=== PATIENT | male | born 1960 | race Caucasian/White ===

== ENCOUNTER 2018-02-03 17:02 | Emergency (ER) | payer BC, SELFPAY ==
[2018-02-03] MEDS ORDERED: LIDOCAINE 1% MPF 5 ML VIAL ONE (18:10)
[2018-02-03] MEDS ORDERED: TETANUS & DIPHTHERIA TOX,ADULT 0.5 ML VIAL ONE (18:10)
--- NOTE | 2018-02-03 18:47 | EDPHYS ---
Physician Documentation [facility] Name: Gray Mehta Age: 57 yrs Sex: Male : 1960 Arrival Date: 02/03/2018 Time: 17:03 Bed 27 Private MD: Serge Gayle ED Physician Israel Charles HPI: 02/03 18:06 This 57 yrs old Male presents to ER via Ambulatory with complaints of kb Laceration - Finger. 18:06 The patient has a laceration related to: changing lightbulb occurred at home, and there kb are no complicating factors. The injury was accidental. The laceration(s) is(are) located on the palmar aspect of middle phalanx of right index finger. Onset: The symptoms/episode began/occurred just prior to arrival. Associated signs and symptoms: The patient has no apparent associated signs or symptoms. The patient has not experienced similar symptoms in the past. The patient has not recently seen a physician. Historical: - Allergies: 17:18 Darvocet-N 100; la1 17:18 Iodine; la1 17:18 Tape; la1 17:18 Vicodin; la1 - Home Meds: 19:15 amlodipine 5 mg tab 1 tab once daily [Active]; aspirin 325 mg Oral TbEC 1 tab once mg2 daily [Active]; Centrum Silver Oral daily [Active]; clopidogrel 75 mg Oral tab 1 tab once daily [Active]; fenofibrate 134 mg Oral 1 tab once daily [Active]; Fish Oil Oral [Active]; losartan-hydrochlorothiazide 100-12.5 mg Oral tab 1 tab once daily [Active]; metoprolol tartrate 50 mg Oral tab [Active]; simvastatin 80 mg Oral tab daily [Active]; - PMHx: 17:18 High Cholesterol; Hypertension; Myocardial infarction; la1 - PSHx: 19:15 None; mg2 - Immunization history:: Adult Immunizations up to date. - Social history:: Smoking status: Patient uses tobacco products, smokes one-half pack cigarettes per day. - Ebola Screening: : No symptoms or risks identified at this time. ROS: 18:44 Constitutional: Negative for fever, chills, and weight loss, ENT: Negative for injury, kb pain, and discharge, Neck: Negative for injury, pain, and swelling, Cardiovascular: Negative for chest pain, palpitations, and edema, Respiratory: Negative for shortness of breath, cough, wheezing, and pleuritic chest pain, Abdomen/GI: Negative for abdominal pain, nausea, vomiting, diarrhea, and constipation, MS/Extremity: Negative for injury and deformity, Neuro: Negative for headache, weakness, numbness, tingling, and seizure. 18:44 Skin: Positive for laceration(s), of the palmar aspect of middle phalanx of right index finger. Exam: 18:44 Constitutional: This is a well developed, well nourished patient who is awake, alert, kb and in no acute distress. Head/Face: Normocephalic, atraumatic. ENT: Nares patent. No nasal discharge, no septal abnormalities noted. Tympanic membranes are normal and external auditory canals are clear. Oropharynx with no redness, swelling, or masses, exudates, or evidence of obstruction, uvula midline. Mucous membranes moist. Neck: Trachea midline, no thyromegaly or masses palpated, and no cervical lymphadenopathy. Supple, full range of motion without nuchal rigidity, or vertebral point tenderness. No Meningismus. Chest/axilla: Normal chest wall appearance and motion. Nontender with no deformity. No lesions are appreciated. Cardiovascular: Regular rate and rhythm with a normal S1 and S2. No gallops, murmurs, or rubs. Normal PMI, no JVD. No pulse deficits. Respiratory: Lungs have equal breath sounds bilaterally, clear to auscultation and percussion. No rales, rhonchi or wheezes noted. No increased work of breathing, no retractions or nasal flaring. Abdomen/GI: Soft, non-tender, with normal bowel sounds. No distension or tympany. No guarding or rebound. No evidence of tenderness throughout. MS/ Extremity: Pulses equal, no cyanosis. Neurovascular intact. Full, normal range of motion. Neuro: Awake and alert, GCS 15, oriented to person, place, time, and situation. Cranial nerves II-XII grossly intact. Motor strength 5/5 in all extremities. Sensory grossly intact. Cerebellar exam normal. Normal gait. 18:44 Skin: injury, laceration(s), the wound is approximately 2 cm(s), of the palmar aspect of middle phalanx of right index finger, that can be described as clean, no foreign body, linear, without bleeding. Vital Signs: 17:19 Pulse 68; Resp 16; Temp 97.5; Pulse Ox 98% on R/A; Weight 79.38 kg; Height 5 ft. 6 in. la1 (167.64 cm); 17:19 BP 130 / 70; la1 17:19 Body Mass Index 28.25 (79.38 kg, 167.64 cm) la1 Procedures: 18:14 Nerve block: (digital) of palmar aspect of proxima; phalanx of right index finger kb Medication: Lidocaine 1% without epinephrine Marcaine 0.5%, Amount: 5 mls were injected, Effect: the patient has resolution of the pain, Set up for procedure. Performed by Salma ACHARYA Patient tolerated well. Laceration: 18:45 Wound Repair of 2cm ( 0.8in ) subcutaneous laceration to palmar aspect of middle kb phalanx of right index finger. Linear shaped.. Distal neuro/vascular/tendon intact. Anesthesia: Digital block administered with 5 mls of Lido/Marcaine. Wound prep: Extensive cleansing with hibiclenz by me, Wound irrigation with saline by me. Skin closed with 3 4-0 Prolene using interrupted sutures and sterile technique. Dressed with Neosporin, tube gauze. Patient tolerated well. MDM: 17:23 Patient medically screened. kb 18:14 Data reviewed: vital signs, nurses notes. Data interpreted: Pulse oximetry: on room air kb is 98 %. Interpretation: normal. 18:45 Counseling: I had a detailed discussion with the patient and/or guardian regarding: the kb historical points, exam findings, and any diagnostic results supporting the discharge/admit diagnosis, the need for outpatient follow up, a family practitioner, to return to the emergency department if symptoms worsen or persist or if there are any questions or concerns that arise at home. 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 Exp: mg2 03/23/2020. Lot #: [id number]. } Route: IM; Site: left deltoid; 18:24 Follow up: Response: No adverse reaction mg2 19:07 Drug: Bupivacaine (0.5 %) 1 vials Volume: 10 ml; Route: Infiltration; mg2 19:07 Follow up: Response: No adverse reaction; Marked relief of symptoms mg2 19:07 Drug: Lidocaine (1 %) 1 vials Volume: 5 ml; Route: Infiltration; mg2 19:07 Follow up: Response: No adverse reaction; Marked relief of symptoms mg2 Disposition: 02/04 07:35 Co-signature as Attending Physician, Israel Charles MD I agree with the assessment and jessie plan of care. Disposition: 02/03/18 18:46 Discharged to Home. Impression: Laceration without foreign body of right index finger without damage to nail. - Condition is Stable. - Discharge Instructions: Laceration Care, Adult, [id number]. - Work release form, Medication Reconciliation Form, Thank You Letter, Antibiotic Education, Prescription Opioid Use form. - Follow up: Emergency Department; When: As needed; Reason: Worsening of condition. Follow up: Private Physician; When: 2 - 3 days; Reason: Recheck today's complaints, Continuance of care, Re-evaluation by your physician. - Notes: Keep clean and dry Watch for signs of infection as discussed Have sutures removed in 10 days Signatures: Salma Watson, TAILOR HELPER-C TAILOR HELPER-Ckb Israel Charles MD MD cha Attema, Lee, RN RN la1 Solo Lopez RN RN mg2 Corrections: (The following items were deleted from the chart) 02/03 18:45 18:06 The laceration(s) is(are) located on the palmar aspect of middle phalanx of right kb little finger, kb 19:16 18:46 02/03/2018 18:46 Discharged to Home. Impression: Laceration without foreign body mg2 of right index finger without damage to nail. Condition is Stable. Forms are Medication Reconciliation Form, Thank You Letter, Antibiotic Education, Prescription Opioid Use. Follow up: Emergency Department; When: As needed; Reason: Worsening of condition. Follow up: Private Physician; When: 2 - 3 days; Reason: Recheck today's complaints, Continuance of care, Re-evaluation by your physician. kb
--- NOTE | 2018-02-03 18:47 | ER ---
Nurse's Notes [facility] Name: Gray Mehta Age: 57 yrs Sex: Male : 1960 Arrival Date: 02/03/2018 Time: 17:03 Bed 27 Private MD: Serge Gayle Diagnosis: Laceration without foreign body of right index finger without damage to nail Presentation: 02/03 17:17 Presenting complaint: Patient states: I was changing a light bulb and it busted up my la1 right index finger. Transition of care: patient was not received from another setting of care. Complicating Factors: There are no complicating factors for this patient. Onset of symptoms was February 03, 2018. Risk Assessment: Do you want to hurt yourself or someone else? Patient reports no desire to harm self or others. Initial Sepsis Screen: Does the patient meet any 2 criteria? No. Patient's initial sepsis screen is negative. Does the patient have a suspected source of infection? No. Patient's initial sepsis screen is negative. Care prior to arrival: None. 17:17 Method Of Arrival: Ambulatory la1 17:17 Acuity: CAIO 4 la1 Historical: - Allergies: 17:18 Darvocet-N 100; la1 17:18 Iodine; la1 17:18 Tape; la1 17:18 Vicodin; la1 - Home Meds: 19:15 amlodipine 5 mg tab 1 tab once daily [Active]; aspirin 325 mg Oral TbEC 1 tab once mg2 daily [Active]; Centrum Silver Oral daily [Active]; clopidogrel 75 mg Oral tab 1 tab once daily [Active]; fenofibrate 134 mg Oral 1 tab once daily [Active]; Fish Oil Oral [Active]; losartan-hydrochlorothiazide 100-12.5 mg Oral tab 1 tab once daily [Active]; metoprolol tartrate 50 mg Oral tab [Active]; simvastatin 80 mg Oral tab daily [Active]; - PMHx: 17:18 High Cholesterol; Hypertension; Myocardial infarction; la1 - PSHx: 19:15 None; mg2 - Immunization history:: Adult Immunizations up to date. - Social history:: Smoking status: Patient uses tobacco products, smokes one-half pack cigarettes per day. - Ebola Screening: : No symptoms or risks identified at this time. Screenin:09 Abuse screen: Denies threats or abuse. Denies injuries from another. Nutritional mg2 screening: No deficits noted. Tuberculosis screening: No symptoms or risk factors identified. Fall Risk None identified. Assessment: 19:07 General: Appears in no apparent distress. comfortable, Behavior is calm, cooperative. mg2 Pain: Complains of pain in palmar aspect of middle phalanx of right index finger. Neuro: Level of Consciousness is awake, alert, obeys commands, Oriented to person, place, time, situation. Cardiovascular: Capillary refill < 3 seconds Patient's skin is warm and dry. Respiratory: Airway is patent Respiratory effort is even, unlabored, Respiratory pattern is regular, symmetrical. GI: No signs and/or symptoms were reported involving the gastrointestinal system. : No signs and/or symptoms were reported regarding the genitourinary system. EENT: No signs and/or symptoms were reported regarding the EENT system. Derm: Skin is intact, is healthy with good turgor, Skin is pink, warm \T\ dry. normal. Musculoskeletal: Circulation, motion, and sensation intact. Capillary refill < 3 seconds. Injury Description: Laceration sustained to palmar aspect of middle phalanx of right index finger is clean, 0.5 to 2.5 cm long, not bleeding, was sustained 2-4 hours ago. Vital Signs: 17:19 Pulse 68; Resp 16; Temp 97.5; Pulse Ox 98% on R/A; Weight 79.38 kg; Height 5 ft. 6 in. la1 (167.64 cm); 17:19 BP 130 / 70; la1 17:19 Body Mass Index 28.25 (79.38 kg, 167.64 cm) la1 ED Course: 17:03 Patient arrived in ED. as 17:03 Serge Gayle MD is Private Physician. as 17:17 Triage completed. la1 17:18 Arm band placed on right wrist. la1 17:23 Salma Watson FNP-C is [facility]. kb 17:23 Israel Charles MD is Attending Physician. kb 17:39 Solo Lopez RN is Primary Nurse. mg2 19:10 Assist provider with laceration repair on palmar aspect of middle phalanx of right mg2 index finger that was 2.5 cm. or less using sutures. Set up tray. Performed by Salma Walter BUNDLE SORTER-C Dressed with 2x2 Patient tolerated well. Patient did not have IV access during this emergency room visit. 19:15 Patient has correct armband on for positive identification. mg2 Administered Medications: 18:05 Drug: Tetanus-Diphtheria Toxoid Adult 0.5 ml {Copy Holder: [employer]. Exp: mg2 03/23/2020. Lot #: [id number]. } Route: IM; Site: left deltoid; 18:24 Follow up: Response: No adverse reaction mg2 19:07 Drug: Bupivacaine (0.5 %) 1 vials Volume: 10 ml; Route: Infiltration; mg2 19:07 Follow up: Response: No adverse reaction; Marked relief of symptoms mg2 19:07 Drug: Lidocaine (1 %) 1 vials Volume: 5 ml; Route: Infiltration; mg2 19:07 Follow up: Response: No adverse reaction; Marked relief of symptoms mg2 Outcome: 18:46 Discharge ordered by . kb 19:12 Discharged to home ambulatory, with family. mg2 19:12 Condition: stable 19:12 Discharge instructions given to patient, family, Instructed on discharge instructions, follow up and referral plans. Demonstrated understanding of instructions, follow-up care. 19:16 Patient left the ED. mg2 Signatures: Salma Watson, BUNDLE SORTER-C BUNDLE SORTER-Layne Oreilly Lee RN RN la1 Solo Lopez RN RN mg2
== END 2018-02-03 19:16 | disposition home or self-care (01) ==
LOC: ER 17:02
PROC: 0JQJ0ZZ Repair Right Hand Subcutaneous Tissue and Fascia, Open Approach (ICD-10-PCS; principal; 2018-02-03)
DX: S61.210A Laceration without foreign body of right index finger without damage to nail, initial encounter (principal); W25.XXXA Contact with sharp glass, initial encounter; Z23 Encounter for immunization; F17.210 Nicotine dependence, cigarettes, uncomplicated; E78.00 Pure hypercholesterolemia, unspecified; I10 Essential (primary) hypertension; I25.2 Old myocardial infarction; Z79.899 Other long term (current) drug therapy
CPT/HCPCS: 64450; 90714; 99283

== ENCOUNTER 2019-08-11 09:29 | Day surgery (SDC) | payer BC ==
[2019-08-08 16:20] LABS: Protime INR 0.93
[2019-08-08 16:23] LABS: Absolute Lymphocytes (CBC) 1.7 K/uL (0.7-4.9); Basophils % 0.7 % (0-1.3); Hematocrit 40.7 % (39.6-49.0); Lymphocytes % 21.4 % (15.3-44.8); MPV 8.6 fL (7.6-11.3); RBC Red Blood Cell Count 4.32 M/uL (4.33-5.43)
--- NOTE | 2019-08-08 16:30 | RAD REPORT ---
EXAM DESCRIPTION: Tam Bermudez And Karthik (2 Views)08/08/2019 4:22 pm CLINICAL HISTORY: Coronary artery disease. Preop for cardiac catheterization COMPARISON: None FINDINGS: The lungs appear clear of acute infiltrate. The heart is normal size IMPRESSION: No acute abnormalities displayed
[2019-08-08 16:32] LABS: Potassium 4.2 mmol/L (3.5-5.1)
[~2019-08-11 09:29] MED LIST: HEPA 1000U/500MLS 2,000 UNIT/1,000 ML BAG IV ONE; LIDOCAINE 1% MPF 30 ML VIAL ONE
[2019-08-11] MEDS ORDERED: NA CHLORIDE 0.9% 500 ML ONE (10:10)
[2019-08-11] MEDS ORDERED: HEPARIN 5000 UNIT/ML 1 ML VIAL ONE ×2 (11:27→11:29)
[2019-08-11] MEDS ORDERED: NICARDIPINE HCL 25 MG/10 ML IV ONE (11:28)
[2019-08-11] MEDS ORDERED: MIDAZOLAM HCL 2 MG/2 ML INJ ONE ×2 (11:28→11:50)
[2019-08-11] MEDS ORDERED: ATROPINE SULF 1 MG/10 ML SYR IV ONE (11:28)
[2019-08-11] MEDS ORDERED: FENTANYL CITR 100 MCG/2 ML ONE (11:28)
[2019-08-11] MEDS ORDERED: ACETYLCYST 20% 4 ML VIAL IH ONE (11:42)
[2019-08-11] MEDS ORDERED: DIPHENHYDRAMINE 50 MG/ML VIAL ONE (11:47)
[2019-08-11 13:35] VITALS: O2SAT 94
[2019-08-11 14:53] VITALS: BP 110/67; TEMP 97.2
--- NOTE | 2019-08-11 22:20 | OP ---
Date of Procedure: 08/11/2019 Surgeon: ANTHONY HERNANDEZ Salesperson Floor Coverings: Anthony Hernandez. Procedure Performed: Selective coronary angiogram. Indication: Unstable angina. Aluminum Boats Assembler: Pio Walls M.D. Access: Right radial artery 6-Hong Konger closed with TR band. Description Of Procedure: Patient was brought into the cardiac catheterization laboratory, prepped a nd draped in usual sterile fashion and used fentanyl and Versed in incremental doses to achieve adequ ate moderate sedation. Total sedation time was 20 minutes. The right radial artery was accessed using the pediatric micropuncture kit, a 6-H[place] Konger sheath was stephanie kim and we took a [place] catheter into the aortic root and engaged the left main coronary artery and t he right coronary artery and obtained standard views and then removed all catheters and wires and the sheath and closed the entry point using a TR band. Total sedation time was 20 minutes. Findings: 1.There is approximately 40% in-stent restenosis of dicszeay-oj-jpn RCA stent over with ROSIE-3 flow and there is about 40% stenosis in the distal RCA. 2.A 30% to 40% stenosis in the third OM and 30% stenosis in the ostial second OM. 3.Diffuse mild luminal irregularities of the LAD. Impression: Moderate in severity coronary artery disease as outlined above. Recommendations: 1.If patient has classic symptoms, I will recommend to obtain a nuclear stress test to further evalu ate. Ideally, iFR/FFR could be done at this scenario; however, unfortunately the iFR/FFR is not avai lable in this medical laboratory scientist. Discussed with Dr. Walls and the plan for outpatient stress test and inter vention only if stress test is positive. 2.Aggressive medical management of coronary artery disease. SR/MODL Voice ID: [id number] Report ID: [id number]
== END 2019-08-11 14:50 | disposition home health service (06) ==
LOC: CCL 09:29
DX: I25.110 Atherosclerotic heart disease of native coronary artery with unstable angina pectoris (principal); T82.855A Stenosis of coronary artery stent, initial encounter; I10 Essential (primary) hypertension; E78.2 Mixed hyperlipidemia; Z98.61 Coronary angioplasty status; Z88.6 Allergy status to analgesic agent
CPT/HCPCS: 85025; 80048; 36415; 85610; 85730; 71046; 93454; C1893; J1200; J1644; J2250 ×2; J3010; J7040

== ENCOUNTER 2021-01-20 14:48 | Emergency (ER) | payer BC ==
--- OUTSIDE RECORDS SUMMARY | 2021-01-20 14:51 | XMS REPORT | Continuity of Care Document ---
:1960 Author Organization [facility] t Address [address] [place] [address] Care Team Providers Name Role Phone Indira LANZA, A Primary Care Physician Indira LANZA, A Attending Clinician ALBERTO Attending Clinician Unavailable Colin LIU Attending Clinician Unavailable MERT TAI Attending Clinician Unavailable Marek PRICE Attending Clinician Unavailable Payers Payer Name Policy Type Policy Number Effective Date Expiration Date S ource Problems Condition Condition Condition Status Onset Resolution Last Treating Co mments Source Name Details Category Date Date Treatment Clinician Date Prediabete Prediabete Disease Active U nivers s s 5-12 ity of 00:00: 00 Medical Branch Coronary Coronary Disease Active Unive rs artery artery 07-06 ity of disease disease 00:00: Medical Branch S/P S/P Disease Active Overview: Univer s coronary coronary 07-06 Formattin ity of artery artery 00:00: g of this [place] stent stent 00 note Medical placement placement might be Br anch different from the original. At least 7 stents per the patient Essential Essential Disease Active Uni vers hypertensi hypertensi 5-04 it y of on on 00:00: 00 Medical Branch Mixed Mixed Disease Active Univers hyperlipid hyperlipid - it y of emia emia 00:00: 00 Medical Branch GERD GERD Disease Active Univers (gastroeso (gastroeso 07-06 it y of phageal phageal 00:00: [place] reflux reflux 00 Medical disease) disease) Branch History of History of Disease Active U nivers blood blood 5-04 ity of transfus[place]io [place] Allergies, Adverse Reactions, Alerts Allergy Allergy Status Severity Reaction(s) Onset Inactive Treating Comm ents Source Name Type Date Date Clinician ADHESIVE DRUG Active Rash Univers TAPE-TAMARA 5-04 ity of ICONES 00:00: [place] 00 Medical Branch IODINE Drug Active ITCHING Univers AND Class 5-04 ity of IODIDE 00:00: [place] CONTAINI 00 Medical NG Branch PRODUCTS PROPOXYP DRUG Active N/V Univers HENE 5-04 ity of N-ACETAM 00:00: [place] INOPHEN 00 Medical Branch HYDROCOD DRUG Active N/V Univers ONE-ACET 5-04 ity of AMINOPHE 00:00: [place] N 00 Medical Branch Adhesive Propensi Active Rash Univer s Tape-Tamara ty to 5-04 ity of icones adverse 00:00: [place] reaction 00 Medical s Branch Iodine Propensi Active Itching Univers And ty to 5-04 ity of Iodide adverse 00:00: [place] Containi reaction 00 Medica l ng s Branch Products Propoxyp Propensi Active Nausea 0 Univer s hene ty to and/or 5-04 ity of N-Acetam adverse Vomiting 00:00: [place] inophen reaction 00 Medical s Branch Hydrocod Propensi Active Nausea Univer s one-Acet ty to and/or 5-04 ity of aminophe adverse Vomiting 00:00: [place] n reaction 00 Medical s Branch NO KNOWN Drug Active Univers ALLERGIE Class ity of S [place] [facility] Social History Social Habit Start Date Stop Date Quantity Comments Source History [facility] o f Alcohol Frequency [facility] edical Branch History [facility] University o f Alcohol Std Drinks [place] [facility] History [facility] o f Alcohol Binge [place] Medic al Branch Alcohol intake 2020-07-14 2020-07-14 Current drinker Unive rsity of 00:00:00 00:00:00 of alcohol [place] [facility] (finding) Branch Cigarettes smoked 2020-07-06 2020-07-06 Univers ity of current (pack per 00:00:00 00:00:00 [facility] ed) - Reported Branch Tobacco use and 2020-07-06 2020-07-06 Never used Universit y of exposure 00:00:00 00:00:00 [facility] Alcohol Comment 2020-07-06 2020-07-06 3 x a week Universit y of 00:00:00 00:00:00 [facility] Sex [birth year] At [birth year] Universit y of 00:0000 00:00:00 [facility] Smoking Status Start Date Stop Date Source Current every day smoker 2020-07-06 00:00:00 Uni versity of [facility] Medications Ordered Filled Start Stop Current Ordering Indication Dosage Frequency Signature Comments Components Source Medication Medication Date Date Medication? Clinician (SIG) Name Name Morton-3-DHA Yes Take by Un rob -EPA-Fish 5-04 mouth ity of Oil (FISH 14:58: daily. [place] OIL) 1,200 42 Medical (144-216) Branch mg Cap folic Yes Take by Univers acid/multiv 5-04 mouth ity of it-min/lute 14:58: [place]. [place] in (CENTRUM 42 Medical SILVER Branch ORAL) aspirin Yes 325mg Take 325 Unive rs E.C. 325 mg 5-04 mg by ity of EC tablet 14:58: mouth [place] 42 daily. Medical Branch clobetasoL Yes [id number] Apply to Univers 0.05 % 5-04 area(s) 2 ity of ointment 00:00: (two) [place] times Medical daily. Branch simvastatin Yes 80mg Take 80 mg Univers 80 mg 4-26 by mouth ity of tablet 00:00: daily. [place] [facility] omeprazole Yes 20mg Take 20 mg U nivers 20 mg 4-25 by mouth ity of capsule 00:00: daily. [place] [facility] fenofibrate Yes TAKE 1 Univ ers micronized 4-06 CAPSULE BY ity of 134 mg 00:00: MOUTH [place] capsule 00 EVERY DAY Medical WITH FOOD Branch metoprolol Yes 50mg Take 50 mg U nivers tartrate 50 3-15 by mouth 2 it y of mg tablet 00:00: (two) [place] 00 times Medical daily with Branch meals. amLODIPine Yes 5mg Take 5 mg Un rob 5 mg tablet 3-08 by mouth ity of 00:00: daily. [address] clopidogreL 2020- Yes 75mg Take 75 mg Univers 75 mg 2-05 by mouth ity of tablet 00:00: daily. [address] Immunizations Ordered Filled Immunization Date Status Comments [facility] e Immunization Name Name SARS-COV-2 COVID-19 2020-07-03 Completed Unive rsity of PFIZER VACCINE 00:00:00 [facility] [place] [facility] SARS-COV-2 COVID-19 2020-06-12 Completed Unive rsity of PFIZER VACCINE 00:00:00 [facility] [place] [facility] Zoster Vaccine 2020-01-04 Completed University of Recombinant 00:00:00 [facility] Influenza Virus 2019-12-04 Completed Universit y of Vaccine 00:00:00 [facility] Zoster Vaccine 2019-12-04 Completed University of Recombinant 00:00:00 [facility] TDAP 2018-03-05 Completed University of 00:00:00 [facility] Procedures This patient has no known procedures. Encounters Start End Encounter Admission Attending Care Care Encounter Source Date/Time Date/Time Type Type Clinicians Facility Department ID 2021-01-20 2021-01-20 Telephone Indira WYHUNTER [id number] [facility] 00:00:00 00:00:00 [employer] [id number] ity of [place] [id number] John as HERRERA?BLEA [id number] [place] desirae [facility] [address] [place] [address] MEDICAL OFFICE BUILDING 2020-08-05 2020-08-05 Outpatient Yonny DOMINGUEZ [facility] [id number] Univers 08:15:00 08:15:00 CASSIE [id number] ity [facility] 2020-08-05 2020-08-05 Outpatient Yonny DOMINGUEZ [facility] [id number] Univers 08:15:00 08:15:00 CASSIE itfa[facility]em [facility] 2020-07-08 2020-07-08 Outpatient Yonny [facility] [id number] Univers 08:00:00 08:00:00 [id number] ity [facility] 2020-07-08 2020-07-08 Outpatient Yonny LIU [facility] [id number] Univers 08:00:00 08:00:00 WONDIFUL ity o f [facility] 2020-07-06 2020-07-06 Outpatient Yonny LIU [facility] [id number] Univers 14:30:00 14:30:00 WONDIFUL ity o f [facility] 2020-07-03 2020-07-03 Outpatient Yonny TAI [facility] [id number] Univers 10:35:00 10:19:26 CECY [facility] 2020-06-12 2020-06-12 Outpatient Yonny PRICE [facility] [id number] Univers 10:55:00 10:56:43 JAHAIRA [facility] Results This patient has no known results.
[2021-01-20 16:26] LABS: ALT/SGPT 47 U/L (12-78); AST/SGOT 30 U/L (15-37); Albumin 3.5 g/dL (3.4-5.0); Alkaline Phosphatase 62 U/L (45-117); BUN Blood Urea Nitrogen 18 mg/dL (7-18); Bicarbonate 26 mmol/L (21-32); Bilirubin Direct < 0.1 mg/dL (0-0.2); Bilirubin Total 0.3 mg/dL (0.2-1.0); Glucose Level 103 mg/dL (74-106); Magnesium 2.1 mg/dL (1.8-2.4); NT PRO-BNP 76 pg/mL (<125); Potassium 3.5 mmol/L (3.5-5.1); Protein, Total 6.9 g/dL (6.4-8.2); Sodium Level 144 mmol/L (136-145); Troponin (Emerg Dept Use Only) < 0.02 ng/mL (0.0-0.045)
[2021-01-20 16:28] LABS: Absolute Lymphocytes (CBC) 1.8 K/uL (0.7-4.9); Basophils % 0.7 % (0-1.3); Hematocrit 43.6 % (39.6-49.0); Lymphocytes % 21.2 % (15.3-44.8); MPV 8.4 fL (7.6-11.3); RBC Red Blood Cell Count 4.59 M/uL (4.33-5.43)
[2021-01-20 16:32] LABS: Protime INR 0.94
--- NOTE | 2021-01-20 18:37 | RAD REPORT ---
EXAM DESCRIPTION: CTAbdomen Pelvis Wo Contrast - 01/20/2021 6:26 pm CLINICAL HISTORY: ABD PAIN COMPARISON: Abdomen Pelvis Wo Contrast dated 08/20/2015 TECHNIQUE: CT of the abdomen and pelvis was performed. All CT scans are performed using dose optimization technique as appropriate and may include automated exposure control or mA/KV adjustment according to patient size. FINDINGS: Lower chest: Coronary artery calcifications and/or stents Liver: No acute abnormality or suspicious lesions. Biliary: No biliary ductal dilatation. Stomach: No significant focal abnormality. Duodenum: No significant focal abnormality. Pancreas: No significant abnormality. Spleen: No significant abnormality. Adrenal: Bilateral benign adrenal nodules which are unchanged since 2016. Kidney/ureter: No hydronephrosis. No renal calculi. Right renal lesion has increased in size now marleni uring 2.6 cm, previously 2 cm. This is over 5 years of minimal change which is consistent with benign etiology. Retroperitoneum: No retroperitoneal adenopathy. Vascular: No aneurysm. Atherosclerosis . Bowel: No significant focal abnormality. Peritoneum: No ascites or free air. Ventral abdominal wall laxity. Small fat umbilical hernia Bladder: Circumferential bladder wall thickening which is nonspecific. May be related to chronic blad samir outlet obstruction. Reproductive: No adnexal masses. Bones: No acute fracture. Multilevel degenerative changes are present in the spine. Other: n/a IMPRESSION: No acute intra-abdominal or pelvic finding.
--- NOTE | 2021-01-20 19:10 | EDPHYS ---
Physician Documentation [facility] Name: Gray Mehta Age: 60 yrs Sex: Male : 1960 Arrival Date: 01/20/2021 Time: 14:51 Bed 14 Private MD: ANNALISA LIU ED Physician Guido Douglas HPI: 01/20 15:50 This 60 yrs old Male presents to ER via Ambulatory with complaints of Bloody Stools. cp 15:50 The patient presents to the emergency department with rectal bleeding, a moderate cp amount, bright red blood with bowel movement, with multiple such episodes, 1 episode today. 15:50 Onset: The symptoms/episode began/occurred 5 month(s) ago. Abdominal pain: located in cp the left lower, that does not radiate. Associated signs and symptoms: Pertinent negatives: chest pain, constipation, diarrhea, dizziness at rest, dizziness when standing, fever, shortness of breath. Severity of symptoms: in the emergency department the symptoms are unchanged despite home interventions. The patient has experienced a previous episode, when diagnosed with h. pylori gastric ulcers. Historical: - Allergies: 15:09 Darvocet-N 100; ss 15:09 Iodine; ss 15:09 Tape; ss 15:09 Vicodin; ss - Home Meds: 15:09 clopidogrel 75 mg Oral tab 1 tab once daily [Active]; amlodipine 5 mg tab 1 tab once ss daily [Active]; aspirin 325 mg Oral TbEC 1 tab once daily [Active]; Centrum Silver Oral daily [Active]; fenofibrate 134 mg Oral 1 tab once daily [Active]; simvastatin 80 mg Oral tab daily [Active]; metoprolol tartrate 50 mg Oral tab [Active]; - PMHx: 15:09 High Cholesterol; Hypertension; Myocardial infarction; Peptic Ulcers; ss - PSHx: 15:09 Cardiac stents x 7; ss - Immunization history:: Client reports receiving the 2nd dose of the Covid vaccine, Flu vaccine is up to date. - Social history:: Smoking status: Patient reports the use of cigarette tobacco products, smokes one-half pack cigarettes per day. ROS: 15:55 Constitutional: Negative for body aches, chills, fever, poor PO intake. cp 15:55 Cardiovascular: Positive for chest pain. cp 15:55 Respiratory: Negative for cough, shortness of breath, wheezing. 15:55 Eyes: Negative for injury, pain, redness, and discharge. cp 15:55 Abdomen/GI: Positive for abdominal pain, rectal bleeding, Negative for vomiting, diarrhea, constipation. 15:55 ENT: Negative for ear pain, sore throat, difficulty swallowing, difficulty handling cp secretions. 15:55 Back: Negative for radiated pain. 15:55 Neuro: Negative for altered mental status, dizziness, headache, syncope, weakness. 15:55 All other systems are negative. Exam: 16:00 Constitutional: The patient appears in no acute distress, alert, awake, cp non-diaphoretic, non-toxic, well developed, well nourished. 16:00 Head/Face: Normocephalic, atraumatic. cp 16:00 Eyes: Periorbital structures: appear normal, Conjunctiva: normal, no exudate, no injection, Sclera: no appreciated abnormality, Lids and lashes: appear normal, bilaterally. 16:00 ENT: External ear(s): are unremarkable, Nose: is normal, Mouth: Lips: moist, Oral mucosa: moist, Posterior pharynx: Airway: no evidence of obstruction, patent. 16:00 Chest/axilla: Inspection: normal, Palpation: is normal, no crepitus, no tenderness. 16:00 Cardiovascular: Rate: normal, Rhythm: regular, Edema: is not appreciated, JVD: is not appreciated. 16:00 Respiratory: the patient does not display signs of respiratory distress, Respirations: normal, no use of accessory muscles, no retractions, labored breathing, is not present, Breath sounds: are clear throughout, no decreased breath sounds, no stridor, no wheezing. 16:00 Abdomen/GI: Inspection: abdomen appears normal, Bowel sounds: active, all quadrants, Palpation: soft, in all quadrants, mild abdominal tenderness, in the left lower quadrant, rebound tenderness, is not appreciated, involuntary guarding, is not appreciated. 16:00 Back: pain, is absent, ROM is normal. 16:00 Neuro: Orientation: to person, place \T\ time. Mentation: is normal, Motor: moves all fours, strength is normal, Sensation: is normal. 16:08 ECG was reviewed by the Attending Physician. Vital Signs: 15:07 BP 161 / 91; Pulse 77; Resp 16; Temp 98.8(TE); Pulse Ox 99% on R/A; Weight 79.83 kg; ss Height 5 ft. 6 in. (167.64 cm); Pain 0/10; 16:07 BP 150 / 77; Pulse 71; Pulse Ox 100% on R/A; ap3 16:43 BP 159 / 82; Pulse 72; Resp 17; Pulse Ox 100% on R/A; ap3 17:24 BP 138 / 75; Pulse 74; Pulse Ox 100% on R/A; ap3 15:07 Body Mass Index 28.41 (79.83 kg, 167.64 cm) ss MDM: 15:24 Patient medically screened. cp 19:10 Data reviewed: vital signs, nurses notes, lab test result(s), EKG, radiologic studies, cp CT scan, and as a result, I will discharge patient. 19:10 Test interpretation: by ED physician or midlevel provider: ECG. 01/20 15:46 Order name: Basic Metabolic Panel 01/20 15:46 Order name: CBC with Diff; Complete Time: 16:52 01/20 16:52 Interpretation: Normal except: MN% 13.7. 01/20 15:46 Order name: LFT's; Complete Time: 16:52 01/20 16:53 Interpretation: Normal except: A/G 1.0. 01/20 15:46 Order name: Magnesium; Complete Time: 16:52 01/20 15:46 Order name: NT PRO-BNP; Complete Time: 16:52 01/20 15:46 Order name: PT-INR; Complete Time: 16:52 01/20 15:46 Order name: Troponin (emerg Dept Use Only); Complete Time: 16:52 01/20 15:46 Order name: Ptt, Activated; Complete Time: 16:52 01/20 15:46 Order name: Type And Screen; Complete Time: 17:38 01/20 15:47 Order name: Basic Metabolic Panel; Complete Time: 16:52 EDMS 01/20 16:53 Interpretation: Normal except: CL 112; GFR 68. 01/20 15:51 Order name: Occult Blood 01/20 15:51 Order name: Ova And Parasites 01/20 15:51 Order name: Stool Culture 01/20 15:51 Order name: CDIFF 01/20 15:46 Order name: EKG; Complete Time: 15:47 01/20 15:46 Order name: Cardiac monitoring; Complete Time: 16:07 01/20 15:46 Order name: EKG - Nurse/Tech; Complete Time: 16:07 01/20 15:46 Order name: IV Saline Lock; Complete Time: 16:07 01/20 15:46 Order name: Labs collected and sent; Complete Time: 16:07 01/20 15:46 Order name: O2 Per Protocol; Complete Time: 15:55 01/20 15:46 Order name: O2 Sat Monitoring; Complete Time: 15:55 01/20 16:46 Order name: Abdomen ; Complete Time: 18:43 EDMS EC:08 Rate is 63 beats/min. Rhythm is regular. SD interval is normal. QRS interval is normal. cp QT interval is normal. Interpreted by me. Reviewed by me. Administered Medications: No medications were administered Disposition: 01/21 07:15 Co-signature as Attending Physician, Guido Douglas MD I agree with the assessment and kdr plan of care. Disposition Summary: 01/20/21 19:10 Discharge Ordered Location: Home cp Problem: new cp Symptoms: have improved cp Condition: Stable cp Diagnosis - Abdominal pain, unspecified cp Followup: cp - With: Private Physician - When: 2 - 3 days - Reason: Recheck today's complaints Discharge Instructions: - Discharge Summary Sheet cp - Abdominal Pain, Adult cp Forms: - Medication Reconciliation Form cp - Thank You Letter cp - Antibiotic Education cp - Prescription Opioid Use cp Prescriptions: - Zofran 4 mg Oral Tablet - take 1 tablet by ORAL route every 12 hours As needed; 20 tablet; Refills: 0, cp Product Selection Permitted - Cipro 500 mg Oral Tablet - take 1 tablet by ORAL route every 12 hours for 10 days; 20 tablet; Refills: 0, cp Product Selection Permitted - Metronidazole 500 mg Oral Tablet - take 1 tablet by ORAL route every 8 hours; 30 tablet; Refills: 0, Product cp Selection Permitted - dicyclomine 20 mg Oral Tablet - take 1 tablet by ORAL route 4 times per day; 20 tablet; Refills: 0, Product cp Selection Permitted Signatures: Dispatcher [facility]Kind[facility] PittsburghGuido Townsend MD MD kdr Smirch, Shelby, RN RN ss Isaias Álvarez, ASSISTANT TEACHING PROFESSOR-C ASSISTANT TEACHING PROFESSOR-Cla1 Israel Robles PA PA cp Prokisch, Amanda, RN RN ap3 Corrections: (The following items were deleted from the chart) 01/20 16:28 15:47 Abdomen Pelvis W Con+CT.RAD.BRZ ordered. EDMS EDMS 16:46 16:21 Abdomen Pelvis W Con+CT.RAD.BRZ ordered. EDMS EDMS
--- NOTE | 2021-01-20 19:10 | ER ---
Nurse's Notes [facility] Name: Gray Mehta Age: 60 yrs Sex: Male : 1960 Arrival Date: 01/20/2021 Time: 14:51 Bed 14 Private MD: ANNALISA LIU Diagnosis: Abdominal pain, unspecified Presentation: 01/20 15:07 Chief complaint: Patient states: episodes of bloody stools over the past 5 months that ss have been coming more frequent. Pt states this is not the first time this has occurred. The cause last time was reported to be "a superbug and ulcers.". Coronavirus screen: Client denies travel out of the [place] in the last 14 days. Ebola Screen: Patient denies exposure to infectious person. Patient denies travel to an Ebola-affected area in the 21 days before illness onset. Initial Sepsis Screen: Does the patient meet any 2 criteria? No. Patient's initial sepsis screen is negative. Does the patient have a suspected source of infection? No. Patient's initial sepsis screen is negative. Risk Assessment: Do you want to hurt yourself or someone else? Patient reports no desire to harm self or others. Onset of symptoms was August 2020. 15:07 Method Of Arrival: Ambulatory ss 15:07 Acuity: CAIO 3 ss Historical: - Allergies: 15:09 Darvocet-N 100; ss 15:09 Iodine; ss 15:09 Tape; ss 15:09 Vicodin; ss - Home Meds: 15:09 clopidogrel 75 mg Oral tab 1 tab once daily [Active]; amlodipine 5 mg tab 1 tab once ss daily [Active]; aspirin 325 mg Oral TbEC 1 tab once daily [Active]; Centrum Silver Oral daily [Active]; fenofibrate 134 mg Oral 1 tab once daily [Active]; simvastatin 80 mg Oral tab daily [Active]; metoprolol tartrate 50 mg Oral tab [Active]; - PMHx: 15:09 High Cholesterol; Hypertension; Myocardial infarction; Peptic Ulcers; ss - PSHx: 15:09 Cardiac stents x 7; ss - Immunization history:: Client reports receiving the 2nd dose of the Covid vaccine, Flu vaccine is up to date. - Social history:: Smoking status: Patient reports the use of cigarette tobacco products, smokes one-half pack cigarettes per day. Screenin:19 Abuse screen: Denies threats or abuse. Nutritional screening: No deficits noted. ap3 Tuberculosis screening: No symptoms or risk factors identified. Fall Risk None identified. Assessment: 15:38 General: Appears in no apparent distress. comfortable, Behavior is calm, cooperative, ap3 appropriate for age. Pain: Complains of pain in left lower quadrant Pain currently is 1 out of 10 on a pain scale. Is lasting a few seconds. Neuro: Level of Consciousness is awake, alert, obeys commands, Oriented to person, place, time, situation, Appropriate for age Gait is steady, Speech is normal. Cardiovascular: Capillary refill < 3 seconds Patient's skin is warm and dry. Respiratory: Airway is patent Respiratory effort is even, unlabored, Respiratory pattern is regular, symmetrical. GI: Reports rectal bleeding. 16:07 Reassessment: Patient and/or family updated on plan of care and expected duration. Pain ap3 level reassessed. Patient is alert, oriented x 3, equal unlabored respirations, skin warm/dry/pink. 16:44 Reassessment: Patient and/or family updated on plan of care and expected duration. Pain ap3 level reassessed. Patient is alert, oriented x 3, equal unlabored respirations, skin warm/dry/pink. patients left the bedside. 18:42 Reassessment: Patient and/or family updated on plan of care and expected duration. Pain ap3 level reassessed. Patient is alert, oriented x 3, equal unlabored respirations, skin warm/dry/pink. patients is back at the bedside. Vital Signs: 15:07 BP 161 / 91; Pulse 77; Resp 16; Temp 98.8(TE); Pulse Ox 99% on R/A; Weight 79.83 kg; ss Height 5 ft. 6 in. (167.64 cm); Pain 0/10; 16:07 BP 150 / 77; Pulse 71; Pulse Ox 100% on R/A; ap3 16:43 BP 159 / 82; Pulse 72; Resp 17; Pulse Ox 100% on R/A; ap3 17:24 BP 138 / 75; Pulse 74; Pulse Ox 100% on R/A; ap3 15:07 Body Mass Index 28.41 (79.83 kg, 167.64 cm) ED Course: 14:51 Patient arrived in ED. ap4 14:52 ANNALISA LIU is Private Physician. ap4 15:09 Triage completed. ss 15:09 Arm band placed on right wrist. ss 15:11 Israel Robles PA is PHCP. cp 15:12 Guido Douglas MD is Attending Physician. cp 15:19 Shira Lewis, RN is Primary Nurse. ap3 15:19 Patient has correct armband on for positive identification. Placed in gown. Bed in low ap3 position. Call light in reach. Side rails up X2. Pulse ox on. NIBP on. Door closed. Noise minimized. 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 ap3 15:50 Initial lab(s) drawn, by me, sent to lab. Inserted saline lock: 20 gauge in left kj1 antecubital area, using aseptic technique. Blood collected. 16:06 EKG done, by ED staff, reviewed by Israel MEZA. ap3 18:26 Abdomen In Process Unspecified. EDMS 19:36 IV discontinued, intact, bleeding controlled, No redness/swelling at site. ld1 Administered Medications: No medications were administered Outcome: 19:10 Discharge ordered by MD. cp 19:36 Discharged to home ambulatory, with family. ld1 19:36 Condition: stable 19:36 Discharge instructions given to patient, family, Instructed on discharge instructions, follow up and referral plans. medication usage, Demonstrated understanding of instructions, follow-up care, medications. 19:36 Patient left the ED. ld1 Signatures: Dispatcher [employer] EDMS Denise Walker RN RN ss Page, Corey, PA PA Shira Lewis, RN RN ap3 Jennifer Watson kj1 Bettye Lama RN RN ld1 Kia Warren ap4
[2021-01-20 19:46] VITALS: TEMP 98.8
[2021-01-20 19:48] VITALS: O2SAT 100
[2021-01-20 19:52] VITALS: BP 138/75
--- NOTE | 2021-01-21 13:19 | EKG ---
Test Date: 2021-01-20 Test Time: 16:01:47 Ruby Engineer: ALP MEASUREMENT RESULTS: Intervals: Rate: 63 MN: 152 QRSD: 96 QT: 386 QTc: 395 [place]: P: 76 MN: 152 QRS: 1 T: 53 INTERPRETIVE STATEMENTS: Normal sinus rhythm Nonspecific T wave abnormality Abnormal ECG Compared to ECG 08/19/2015 21:43:28 T-wave abnormality now present Electronically Signed On 01-21-21 13:16:26 STOCK CLIPPER by Pio Walls
[2021-01-21 13:38] LABS: C.diff Antigen/Toxin Ag neg : Tox neg (NEG : NEG)
== END 2021-01-20 19:36 | disposition home or self-care (01) ==
LOC: ER 14:48
DX: R10.32 Left lower quadrant pain (principal); K62.5 Hemorrhage of anus and rectum; E78.00 Pure hypercholesterolemia, unspecified; I10 Essential (primary) hypertension; F17.210 Nicotine dependence, cigarettes, uncomplicated; Z79.82 Long term (current) use of aspirin; Z88.5 Allergy status to narcotic agent; Z88.8 Allergy status to other drugs, medicaments and biological substances; Z95.818 Presence of other cardiac implants and grafts; Z91.048 Other nonmedicinal substance allergy status
CPT/HCPCS: 36415; 74176; 80048; 80076; 82274; 83735; 83880; 84484; 85025; 85610; 85730; 86850; 86900; 86901; 87045; 87046; 87177; 87209; 87324; 87449; 93005; 99284

== ENCOUNTER 2024-04-26 18:08 | Inpatient (IN) | payer BC, SELFPAY ==
--- OUTSIDE RECORDS SUMMARY | 2024-04-26 18:11 | XMS REPORT | Continuity of Care Document ---
Author Name Unknown Address [address] [place] [address] [facility] thconnect Address [address] [place] [address] Care Team Providers Care Automation Tech Name Role Phone Jony Dee Primary Care Physician [phone] KARI RODGERS Attending Clinician Unavailable JUSTICE WILLIAM Attending Clinician Unavail able RIKI LLOYD Attending Clinician Unavailab le LAB90 Attending Clinician Unavailable ROSLYN GARCIA Attending Clinician Unavailable Roslyn Mancuso Attending Clinician [phone] Lab, Ang - Db Attending Clinician Unavailable Jony Dee Attending Clinician [phone] JONY COSTA Attending Clinician Unavailable Doctor Unassigned, [place] Attending Clinician U Pauly Webster MA Attending Clinician UnavailClaudia Bates MD Attending Clinician + [phone] CASSIE DOMINGUEZ Attending Clinician Unavailable CLAUIDA ILU Attending Clinician UnavailCECY Garner Attending Clinician Unavail able JAHAIRA PRICE Attending Clinician Unavailable Payers Payer Name Policy Type Policy Number Effective Date Expirati on Date Source BCBS 2 [id number] 2023 00:00:00 [employer] [place] OUT [place] [id number] 2020 00:00:00 Problems Condition Name Condition Details Condition Category Status Onset Date Resolution Date Last Treatment Date Treating Clinician Comments Source USP (current) use of antithromb otics/anti platelets USP (current) use of antithromb otics/anti platelets Disease Active 00:00: 00 Evette Seybold - Externa l HTN (hypertens ion) HTN (hypertens ion) Disease Active 00:00: 00 Evette Seybold - Externa l Hyperlipid emia Hyperlipid emia Disease Active 00:00: 00 Evette Seybold - Externa l CAD (coronary artery disease) CAD (coronary artery disease) Disease Active 00:00: 00 Evette Seybold - Externa l Seasonal allergies Seasonal allergies Disease Active 00:00: 00 Evette Seybold - Externa l GERD (gastroeso phageal reflux disease) GERD (gastroeso phageal reflux disease) Disease Active 00:00: 00 Evette Dumontold - Externa l Hx of heart artery stent Hx of heart artery stent Disease Active 00:00: 00 Evette Seybold - Externa l Skin cancer Skin cancer Disease Active 00:00: 00 Evette Gutierrezybold - Externa l Hx of colonic polyp Hx of colonic polyp Disease Active 00:00: 00 Evette Dumontold - Externa l Screening for colorectal cancer Screening for colorectal cancer Disease Active 07-29 00:00: 00 [facility] Prediabete s Prediabete s Disease Active -12 00:00: 00 [facility] Coronary artery disease Coronary artery disease Disease Active 07-06 00:00: 00 [facility] S/P coronary artery stent placement S/P coronary artery stent placement Disease Active 07-06 00:00: 00 Overview: Formattin g of this note might be different from the original. At least 7 stents per the patient [facility] Essential hypertensi on Essential hypertensi on Disease Active 0 -04 00:00: 00 [facility] Mixed hyperlipid emia Mixed hyperlipid emia Disease Active -04 00:00: 00 [facility] GERD (gastroeso phageal reflux disease) GERD (gastroeso phageal reflux disease) Disease Active - 00:00: 00 [facility] History of blood transfusio n History of blood transfusio n Disease Active 04 00:00: 00 [facility] Allergies, Adverse Reactions, Alerts Allergy Name Allergy Type Status Severity Reaction(s) Onset Date Inactive Date Treating Clinician Comments Source Skin Adhesive s Propensi ty to adverse reaction s Active Rash 2023-0 2-29 00:00: 00 Evette Seybold - Externa l Hydrocod one-Acet aminophe n Propensi ty to adverse reaction s Active Nausea and Vomiting 0 5-04 00:00: 00 Evette Seybold - Externa l Iodine And Iodide Containi ng Products Propensi ty to adverse reaction s Active Itching 2020-0 5-04 00:00: 00 [facility] ADHESIVE TAPE-TAMARA ICONES DRUG Active Rash 2020-0 5-04 00:00: 00 [facility] IODINE AND IODIDE CONTAINI NG PRODUCTS Drug Class Active ITCHING 2020-0 5-04 00:00: 00 [facility] PROPOXYP HENE N-ACETAM INOPHEN DRUG Active N/V 2020-0 5-04 00:00: 00 [facility] HYDROCOD ONE-ACET AMINOPHE N DRUG Active N/V 2020-0 5-04 00:00: 00 [facility] Iodine And Iodide Containi ng Products Propensi ty to adverse reaction s Active Itching 2020-0 5-04 00:00: 00 [facility] Adhesive Tape-Tamara icones Propensi ty to adverse reaction s Active Rash 2020-0 5-04 00:00: 00 [facility] Propoxyp hene N-Acetam inophen Propensi ty to adverse reaction s Active Nausea and/or Vomiting 5-04 00:00: 00 [facility] Social History Social Habit Start Date Stop Date Quantity Comments Source History SDOH Alcohol Frequency [facility] History SDOH Alcohol Std Drinks [facility] History SDOH Alcohol Binge [facility] Sexual orientation Wale darlinfaheem Jeane - External History of tobacco use Cigarette Smoker Evette miller - External Cigarettes smoked current (pack per day) - Reported 2023-05-03 00:00:00 2023-05-03 00:00:00 Evette Ching - External Alcohol intake 2023-05-03 00:00:00 2023-05-03 00:00:00 Evette Ching - External History of Social function 2023-05-03 00:00:00 2023-05-03 00:00:00 Evette Ching - External Tobacco Comment 2023-05-03 00:00:00 2023-05-03 00:00:00 8-9 cigarettes a day Evette Ching - External Alcohol Comment 2023-05-03 00:00:00 2023-05-03 00:00:00 3-4 beers nightly Evette Ching - External Exposure to SARS-CoV-2 (event) 2022-02-27 00:00:00 2022-03-09 16:26:00 Not sure [facility] Tobacco use and exposure 2022-03-09 00:00:00 2022-03-09 00:00:00 Smokeless tobacco non-user [facility] Sex Assigned At 1960 00:00:00 1960 00:00:00 Evette Ching - External Smoking Status Start Date Stop Date Source Smokes tobacco daily 2023-05-03 00:00:00 Evette Ching - External Medications Ordered Medication Name Filled Medication Name Start Date Stop Date Current Medication? Ordering Clinician Indication Dosage Frequency Signature (SIG) Comments Components Source Aspirin 81 MG oral Capsule 09:29: 09 Yes 1{tbl} Take 1 tablet by mouth 3 times daily. Evette Ching - Externa l Multiple Vitamins-Mi nerals (CENTRUM SILVER 50+MEN OR) 08:57: 20 Yes Take by mouth daily. Evette em [place]-3 Fatty Acids ([place]-3 Fish Oil) 1200 MG oral Capsule 08:57: 20 Yes [id number] Take by mouth daily. Evette em Clopidogrel Bisulfate (PLAVIX) 75 MG oral Tablet -16 00:00: 00 Yes [id number] 75mg Take 1 tablet (75 mg total) by mouth daily. Evette em Amlodipine Besylate (NORVASC) 5 MG oral Tablet 16 00:00: 00 Yes [id number] 5mg Take 1 tablet (5 mg total) by mouth daily. Evette em Omeprazole 20 MG oral Delayed Release Capsule - 00:00: 00 Yes 20mg Take 1 capsule (20 mg total) by mouth daily. Evette em Fenofibrate 134 MG oral Capsule - 00:00: 00 Yes [id number] TAKE ONE (1) CAPSULE BY MOUTH EVERY DAY WITH FOOD. Evette em Metoprolol Tartrate (LOPRESSOR) 50 MG oral Tablet 2022-0315 00:00: 00 Yes [id number] TAKE ONE (1) TABLET BY MOUTH TWICE DAILY WITH MEALS. Evette em Lisinopril 10 MG oral Tablet 2022-03-06 00:00: 00 Yes [id number] 10mg Take 1 tablet (10 mg total) by mouth daily. Evette em azithromyci n 250 mg tablet 2022-03 00:00: 00 Yes [id number] Take 500 mg PO day 1, then 250 mg PO days 2 to 5 [facility] benzonatate (TESSALON PERLES) 100 mg capsule 2022-03 00:00: 00 Yes [id number] 100mg Take 1 capsule by mouth 3 (three) times daily as needed for Cough. [facility] albuterol 90 mcg/actuati on inhaler 2022-03 00:00: 00 Yes [id number] 2{puff} Inhale 2 Puffs every 6 (six) hours as needed for Wheezing. [facility] Azelastine HCl 0.1 % nasal Solution 2022-03 00:00: 00 Yes [id number] 1{spray } 1 spray by nasal route 2 times daily. Evette em benzonatate (NICOSALMAY BLUNT) 100 mg capsule 03-09 00:00: 00 01-11 00:00 :00 No [id number] 100mg Take 1 capsule by mouth every 8 (eight) hours as needed for Cough. [facility] azithromyci n 250 mg tablet 03-09 00:00: 00 01-11 00:00 :00 No [id number] 250mg Take 1 tablet by mouth in the morning. [facility] [place]-3-DHA -EPA-Fish Oil (FISH OIL) 1,200 (144-216) mg Cap 07-06 14:58: 42 Yes Take by mouth daily. [facility] folic acid/multiv it-min/lute in (CENTRUM SILVER ORAL) 07-06 14:58: 42 Yes Take by mouth daily. [facility] aspirin E.C. 325 mg EC tablet 07-06 14:58: 42 Yes 325mg Take 325 mg by mouth daily. [facility] [place]-3-DHA -EPA-Fish Oil (FISH OIL) 1,200 (144-216) mg Cap 07-06 14:58: 42 Yes Take by mouth daily. [facility] clobetasoL 0.05 % ointment 07-06 00:00: 00 Yes [id number] Apply to area(s) 2 (two) times daily. [facility] simvastatin 80 mg tablet 06-28 00:00: 00 Yes 80mg Take 80 mg by mouth daily. [facility] omeprazole 20 mg capsule 06-27 00:00: 00 Yes 20mg Take 20 mg by mouth daily. [facility] fenofibrate micronized 134 mg capsule 06-08 00:00: 00 Yes TAKE 1 CAPSULE BY MOUTH EVERY DAY WITH FOOD [facility] metoprolol tartrate 50 mg tablet 315 00:00: 00 Yes 50mg Take 50 mg by mouth 2 (two) times daily with meals. [facility] amLODIPine 5 mg tablet 308 00:00: 00 Yes 5mg Take 5 mg by mouth daily. [facility] clopidogreL 75 mg tablet 04-09 00:00: 00 Yes 75mg Take 75 mg by mouth daily. [facility] Immunizations Ordered Immunization Name Filled Immunization Name Date Status Comments Source Flu Injectable MDCK Quadrivalent 2021-12-24 00:00:00 Completed [facility] SARS-COV-2 COVID-19 PFIZER VACCINE 2021-02-12 00:00:00 Completed [facility] SARS-COV-2 COVID-19 PFIZER VACCINE 2021-02-12 00:00:00 Completed [facility] Influenza Virus Vaccine 2021-01-08 00:00:00 Completed [facility] Influenza Virus Vaccine 2021-01-08 00:00:00 Completed [facility] Flu Injectable MDCK Quadrivalent 2021-01-08 00:00:00 Completed [facility] SARS-COV-2 COVID-19 PFIZER VACCINE 2020-07-03 00:00:00 Completed [facility] SARS-COV-2 COVID-19 PFIZER VACCINE 2020-07-03 00:00:00 Completed [facility] SARS-COV-2 COVID-19 PFIZER VACCINE 2020-06-12 00:00:00 Completed [facility] SARS-COV-2 COVID-19 PFIZER VACCINE 2020-06-12 00:00:00 Completed [facility] Zoster Vaccine Recombinant 2020-03-28 00:00:00 Completed [facility] Zoster Vaccine Recombinant 2020-03-28 00:00:00 Completed [facility] Zoster Vaccine Recombinant 2020-01-04 00:00:00 Completed [facility] Zoster Vaccine Recombinant 2020-01-04 00:00:00 Completed [facility] Influenza Virus Vaccine 2019-12-04 00:00:00 Completed [facility] Zoster Vaccine Recombinant 2019-12-04 00:00:00 Completed [facility] Influenza Virus Vaccine 2019-12-04 00:00:00 Completed [facility] Zoster Vaccine Recombinant 2019-12-04 00:00:00 Completed [facility] TDAP 2018-03-05 00:00:00 Completed [facility] TDAP 2018-03-05 00:00:00 Completed [facility] SARS-COV-2 COVID-19 PFIZER VACCINE Unknown Completed [facility] Influenza Virus Vaccine Unknown Completed [facility] Zoster Vaccine Recombinant Unknown Completed [facility] TDAP Unknown Completed [facility] Flu Injectable MDCK Quadrivalent Unknown Completed [facility] Vital Signs Vital Name Observation Time Observation Value Comments S ource Systolic blood pressure 2023-05-03 14:50:00 132 mm[Hg] Evette Gutierrezybo ld - External Diastolic blood pressure 2023-05-03 14:50:00 74 mm[Hg] Evette Gutierrezybo ld - External Heart rate 2023-05-03 14:50:00 68 /min Kel y Seybold - External Body temperature 2023-05-03 14:50:00 36.67 Meli Evette Gutierrezybold - External Respiratory rate 2023-05-03 14:50:00 18 /min Evette Gutierrezybold - External Body height 2023-05-03 14:50:00 167.6 cm Bridget miguelito Seybold - External Body weight 2023-05-03 14:50:00 74.39 kg Bridget farley Seybold - External BMI 2023-05-03 14:50:00 26.47 kg/m2 Bridget farley Seybold - External Oxygen saturation in Arterial blood by Pulse oximetry 2023-05-03 14:50:00 97 /min Evette Dumonto ld - External Systolic blood pressure 2023-01-11 16:06:00 139 mm[Hg] [facility] Diastolic blood pressure 2023-01-11 16:06:00 69 mm[Hg] [facility] Heart rate 2023-01-11 16:06:00 93 /min [facility] Body temperature 2023-01-11 16:06:00 37.22 Meli [facility] Body height 2023-01-11 16:06:00 167.6 cm [facility] Body weight 2023-01-11 16:06:00 74.526 kg [facility] BMI 2023-01-11 16:06:00 26.52 kg/m2 [facility] Oxygen saturation in Arterial blood by Pulse oximetry 2023-01-11 16:06:00 97 /min [facility] Systolic blood pressure 2022-03-09 22:51:00 167 mm[Hg] [facility] Diastolic blood pressure 2022-03-09 22:51:00 83 mm[Hg] [facility] Heart rate 2022-03-09 22:41:00 96 /min [facility] Body temperature 2022-03-09 22:41:00 37.22 Meli [facility] Body height 2022-03-09 22:41:00 167.6 cm [facility] Body weight 2022-03-09 22:41:00 77.021 kg [facility] BMI 2022-03-09 22:41:00 27.41 kg/m2 [facility] Oxygen saturation in Arterial blood by Pulse oximetry 2022-03-09 22:41:00 96 /min [facility] Systolic blood pressure 2021-07-29 13:18:00 156 mm[Hg] [facility] Diastolic blood pressure 2021-07-29 13:18:00 76 mm[Hg] [facility] Heart rate 2021-07-29 13:17:00 64 /min [facility] Body height 2021-07-29 13:17:00 167.6 cm [facility] Body weight 2021-07-29 13:17:00 78.472 kg [facility] BMI 2021-07-29 13:17:00 27.92 kg/m2 [facility] Oxygen saturation in Arterial blood by Pulse oximetry 2021-07-29 13:17:00 98 /min [facility] Procedures Procedure Date / Time Performed Performing Clinicia n Source POCT SARS-COV-2 ANTIGEN (BINAX NOW) 2023-01-11 16:31:00 Roslyn Garcia [facility] POCT MOLECULAR FLU 2023-01-11 16:17:00 Roslyn Garcia [facility] POCT URINALYSIS 2021-07-29 00:00:00 Jony Costa [facility] Encounters Start Date/Time End Date/Time Encounter Type Admission Type Attending [facility] Care Department Encounter ID Source 2024-02-13 09:30:00 2024-02-13 09:30:00 Outpatient VISHAL KARI EVETTE SANTORO [id number] [facility] 2024-02-11 00:00:00 2024-02-11 00:00:00 Outpatient NATALIIA STEPHENNEIL SANTORO [id number] [facility] 2023-11-02 16:30:00 2023-11-02 16:30:00 Outpatient RIKI LLOYD [id number] [facility] 2023-05-09 00:00:00 2023-05-09 00:00:00 Outpatient RIKI LLOYD [id number] [facility] 2023-05-03 09:50:00 2023-05-03 09:50:00 Outpatient LAB90 EVETTE SANTORO [id number] [facility] 2023-05-03 09:00:00 2023-05-03 09:00:00 Outpatient RIKI LLOYD [id number] [facility] 2023-05-03 00:00:00 2023-05-03 00:00:00 Outpatient RIKI LLOYD [id number] [facility] 2023-01-11 10:30:00 2023-01-11 10:34:04 Outpatient ROSLYN TUCKER [facility] [id number] [facility] 2023-01-11 10:30:00 2023-01-11 10:34:04 Office Visit Roslyn Garcia [facility] [id number] [id number] [id number] [facility] 2022-03-09 16:30:00 2022-03-09 17:32:34 Outpatient R ROSLYN GARCIA [facility] [id number] [facility] 2022-03-09 16:30:00 2022-03-09 17:32:34 Office Visit Roslyn Garcia [facility] 1..840.114 350.1.13.10 4.2.7.2.686 [id number] [facility] 2021-07-29 08:45:00 2021-07-29 09:00:00 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, [place] Jony [facility] 1..840.114 350.1.13.10 4.2.7.2.686 [id number] [facility] 2021-07-29 08:00:00 2021-07-29 08:53:29 Outpatient R JONY COSTA [facility] [id number] [facility] 2021-07-29 08:00:00 2021-07-29 08:53:29 Office Visit Jony Costa [facility] 1..840.114 350.1.13.10 4.2.7.2.686 [id number] [facility] 2021-07-29 08:00:00 2021-07-29 08:53:29 Outpatient R JONY COSTA [facility] [id number] [facility] 2021-07-29 00:00:00 2021-07-29 00:00:00 Orders Only Doctor Unassigned, [place] [facility] [id number] 350.1.13.10 4.2.7.2.686 [id number] [facility] 2021-06-29 00:00:00 2021-06-29 00:00:00 Orders Only Doctor Unassigned, [place] [facility] [id number] 350.1.13.10 4.2.7.2.686 [id number] [facility] 2021-06-17 00:00:00 2021-06-17 00:00:00 Pre Visit Outreach Pauly Dozier [id number] 350.1.13.10 4.2.7.2.686 [id number] [facility] 2021-01-20 00:00:00 2021-01-20 00:00:00 [facility] [id number] 350.1.13.10 [id number] [id number] [facility] 2020-08-05 08:15:00 2020-08-05 08:15:00 Outpatient CASSIE UP [facility] [id number] [facility] 2020-07-08 08:00:00 2020-07-08 08:00:00 Outpatient CLAUDIA RAMÍREZ [facility] [id number] [facility] 2020-07-06 14:30:00 2020-07-06 14:30:00 Outpatient HAYLEY RAMÍREZEMELINA [facility] [id number] [facility] 2020-07-03 10:35:00 2020-07-03 10:19:26 Outpatient CECY MORILLO [facility] [id number] [facility] 2020-06-12 10:55:00 2020-06-12 10:56:43 Outpatient JAHAIRA HEREDIA [facility] [id number] [facility] Results Test Description Test Time Test Comments Results Result Co [facility]ments [facility]-11 16:33:00* Test Item Value Reference Range Interpretation Comme nts POCT SARS-COV-2 ANTIGEN (nico t code = 97288-7) Not Detected Not Detected On board controls acceptable with C Line (test code = 3574) Yes [facility] SARS-COV-2 ANTIGEN (BINAX NOW)2023-01-11 16:33:00* Test Item Value Reference Range Interpretation Comme nts POCT SARS-COV-2 ANTIGEN (nico t code = 96322-2) Not Detected Not Detected On board controls acceptable with C Line (test code = 3574) Yes [facility] MOLECULAR [id number] 16:28:57* Test Item Value Reference Range Interpretation Comme nts POCT Molecular FluA (test co de = 04629-3) Negative Negative POCT Molecular FluB (test co de = 33711-6) Negative Negative Lab Interpretation (test cod e = 48608-8) Normal [facility] MOLECULAR [id number] 16:28:57* Test Item Value Reference Range Interpretation Comme nts POCT Molecular FluA (test co de = 66122-2) Negative Negative POCT Molecular FluB (test co de = 74267-0) Negative Negative Lab Interpretation (test cod e = 50323-8) Normal [facility] MOLECULAR [id number] 16:28:57* Test Item Value Reference Range Interpretation Comme nts POCT Molecular FluA (test co de = 84033-1) Negative Negative POCT Molecular FluB (test co de = 87794-3) Negative Negative Lab Interpretation (test cod e = 27217-0) Normal [facility] URINALYSIS W SPECIFIC [id number] 14:58:00* Test Item Value Reference Range Interpretation Comme nts POCT U SP GRAV (test code = 3255) 1.010 mg/dl 1.005-1.025 POCT PH U (test code = 3254) 7 mg/dl 5-8 POCT U LEUK EST (test code = 3263) trace Negative - Negative POCT U NIT (test code = 3262) negative Negative - Negati ve POCT U PROT (test code = 3259) trace Negative - Negative POCT U GLU (test code = 3256) negative Negative - Negati ve POCT U KETONE (test code = 3258) negative Negative - Negative POCT U UROBILI (test code = 3260) 1 mg/dl 0.2-1 POCT U BILI (test code = 3261) negative Negative - Negative POCT U BLD (test code = 3257) negative Negative - Negati ve POCT U COLOR (test code = 3266) dark yellow POCT U APPEAR (test code = 3267) clear Lab Interpretation (test cod e = 55875-8) [facility] SPECIFIC [id number] 14:58:00* Test Item Value Reference Range Interpretation Comme nts POCT U SP GRAV (test code = 3255) 1.010 mg/dl 1.005-1.025 POCT PH U (test code = 3254) 7 mg/dl 5-8 POCT U LEUK EST (test code = 3263) trace Negative - Negative POCT U NIT (test code = 3262) negative Negative - Negati ve POCT U PROT (test code = 3259) trace Negative - Negative POCT U GLU (test code = 3256) negative Negative - Negati ve POCT U KETONE (test code = 3258) negative Negative - Negative POCT U UROBILI (test code = 3260) 1 mg/dl 0.2-1 POCT U BILI (test code = 3261) negative Negative - Negative POCT U BLD (test code = 3257) negative Negative - Negati ve POCT U COLOR (test code = 3266) dark yellow POCT U APPEAR (test code = 3267) clear Lab Interpretation (test cod e = 44402-1) Abnormal [facility] Notes Date/Time Note Provider Source 2023-05-03 08:57:25 Chief Complaint Patient presents with Physical Lab work Lauren Anna LVN [facility]
[2024-04-26 19:29] LABS: Absolute Eosinophils 0.1 K/uL (0-0.5); Absolute Lymphocytes (CBC) 1.5 K/uL (0.7-4.9); Absolute Monocytes 1.5 K/uL (0.1-1.3); Absolute Neutrophil 13.9 K/uL (1.8-8.0); Basophils % 0.2 % (0-1.3); Eosinophils % 0.7 % (0-4.4); Hematocrit 45.9 % (39.6-49.0); Hemoglobin 15.5 g/dL (13.6-17.9); MCH 32.1 pg (27.0-35.0); MCHC 33.8 g/dL (32.0-36.0); MCV 94.8 fL (80-100); MPV 8.3 fL (7.6-11.3); Monocytes % 8.6 % (3.3-12.3); Neutrophils % 81.5 % (41.7-73.7); Nucleated Red Blood Cells % 0.1 % (0-0); Platelets 309 thou/uL (152-406); RBC Red Blood Cell Count 4.84 M/uL (4.33-5.43); Red Cell Distribution Width 12.8 % (12.1-15.2)
[2024-04-26] MEDS ORDERED: FAMOTIDINE 20 MG/2 ML VIAL IV ONE (19:32)
[2024-04-26] MEDS ORDERED: ONDANSETRON 4 MG/2 ML VIAL ONE (19:32)
[2024-04-26] MEDS ORDERED: NA CHLORIDE 0.9% 1,000 ML ONE (19:32)
[2024-04-26 19:36] LABS: PT Prothrombin Time 12.2 SECONDS (10.0-13.0); Protime INR 1.07
[2024-04-26 19:59] LABS: Specific Gravity 1.023 (1.005-1.030); Urine Bilirubin NEGATIVE (Negative); Urine Blood Negative (Negative); Urine Clarity Clear (Clear); Urine Color Yellow (Yellow); Urine Glucose NEGATIVE (Negative); Urine Ketones NEGATIVE (Negative); Urine Microscopic Reflex YN NO UMIC; Urine Nitrite NEGATIVE (Negative); Urine Protein NEGATIVE (Negative); Urine Urobilinogen Normal (Normal)
[2024-04-26 20:04] LABS: Albumin 3.4 g/dL (3.4-5.0); Albumin/Globulin Ratio 0.8 (1.1-1.8); Anion Gap 8.3 mEq/L (5.0-15.0); Bilirubin Direct 0.2 mg/dL (0-0.2); Bilirubin Indirect, Calculated 0.3 mg/dL (0.2-0.8); Bilirubin Total 0.5 mg/dL (0.2-1.0); Globulin 4.4 g/dL (2.3-3.5); Magnesium 1.9 mg/dL (1.6-2.4); Potassium 4.3 mEq/L (3.5-5.1); Protein, Total 7.8 g/dL (6.4-8.2); Troponin High Sensitivity 7.1 pg/mL (<58.9)
--- NOTE | 2024-04-26 20:13 | RAD REPORT ---
EXAMINATION: ONE VIEW CHEST XR CLINICAL INDICATION: Male, 63 years old.,ABDOMINAL DISTENTION TECHNIQUE: Frontal chest projection is submitted. Examination is limited by patient positioning and t echnique. COMPARISON: 08/08/2019 FINDINGS: The lungs are well inflated and clear. No pneumothorax or sizable effusion. The heart is normal in s ize. Mediastinal contours are unremarkable. IMPRESSION: No acute intrathoracic abnormalities.
[2024-04-26] MEDS ORDERED: MORPHINE 4 MG/ML SYR ONE (20:59)
--- NOTE | 2024-04-26 21:02 | RAD REPORT ---
EXAMINATION: CT Abdomen Pelvis Wo Contrast CLINICAL INDICATION: Male, 63 years old. ABD PAIN TECHNIQUE: CT abdomen and pelvis was performed, without IV contrast, as per department protocol. Axia l, sagittal and coronal reconstructions were obtained. One or more of the following dose reduction techniques were used: Automated exposure control, adjustment of the mA and kV according to the patien t size, and iterative reconstruction. Unless otherwise specified, incidental findings do not require dedicated imaging follow-up. COMPARISON: 06/16/2021. FINDINGS: The lack of intravenous contrast limits the sensitivity of this exam for evaluation of solid visceral organs, vascular structures, and retroperitoneum. LOWER CHEST: The visualized lung bases are clear. LIVER: Normal in size and contour. No focal lesion. BILIARY SYSTEM: No suspicious abnormalities. SPLEEN: Normal size. No focal lesion. PANCREAS: Coarse calcifications in the region of the pancreatic head again seen suggesting sequelae o f chronic pancreatitis. Swelling, with pronounced adjacent fat stranding throughout the pancreas centered on the head, suggesting acute pancreatitis. Punctate focus of possible gas adjacent to the r ight margin of the head on series 201 image 25 could be related to a partially decompressed or fluid-filled duodenal diverticulum seen previously. No appreciable fluid collections or soft tissue g as within limits of noncontrast evaluation. ADRENALS: Nodular thickening of both adrenal glands, stable. KIDNEYS AND URETERS: Normal size, with some anterior rotation of the right kidney lower moiety again seen. Right lower pole 3.3 cm cystic lesion, slightly above density of simple fluid, stable. No hydronephrosis. URINARY BLADDER: Normal contour. GASTROINTESTINAL TRACT: No evidence of bowel obstruction, significant free fluid, free air or abscess . APPENDIX: Normal appendix. LYMPH NODES: No lymphadenopathy. MUSCULOSKELETAL: No acute or suspicious osseous abnormality. ADDITIONAL FINDINGS: None. IMPRESSION: Findings of acute on top of chronic pancreatitis, with inflammation centered on the head of the pancr eas. No findings to suggest necrotizing inflammation or fluid collections, within limits of noncontrast evaluation. Other stable findings as above. THIS REPORT CONTAINS FINDINGS THAT MAY BE CRITICAL TO PATIENT CARE. The findings were verbally commun icated via telephone to Jero Shetty on 04/26/2024 8:55 PM.
[2024-04-26] MEDS ORDERED: FLUMAZENIL 0.1 MG/ML (5 mL VIAL) IV PRN (21:10)
[2024-04-26] MEDS ORDERED: ALBUTEROL 2.5 MG/3 ML NEB SOL NEB PRN (21:10)
[2024-04-26] MEDS ORDERED: LORazepam 2 MG/ML VIAL IV PRN (21:10)
[2024-04-26] MEDS ORDERED: ONDANSETRON 4 MG/2 ML VIAL IV PRN (21:10)
--- NOTE | 2024-04-26 21:12 | ER ---
Nurse's Notes [facility] Name: Gray Mehta Age: 63 yrs Sex: Male : 1960 Arrival Date: 04/26/2024 Time: 18:08 Bed 8 Private MD: Diagnosis: Alcohol induced acute pancreatitis without necrosis or infection;Abdominal pain, unspecified Presentation: 04/26 18:57 Chief complaint: Patient states: Mid abdominal pain since 1200 today. Coronavirus jl7 screen: At this time, the client does not indicate any symptoms associated with coronavirus-19. Ebola Screen: No symptoms or risks identified at this time. Initial Sepsis Screen: Does the patient meet any 2 criteria? No. Patient's initial sepsis screen is negative. Does the patient have a suspected source of infection? No. Patient's initial sepsis screen is negative. Risk Assessment: Do you want to hurt yourself or someone else? Patient reports no desire to harm self or others. Onset of symptoms was April 26, 2024 at 12:00. 18:57 Method Of Arrival: Ambulatory [facility] 18:57 Acuity: CAIO 2 jl7 Triage Assessment: 18:58 General: Appears in no apparent distress. uncomfortable, ill, Behavior is calm, jl7 cooperative, appropriate for age. Pain: Complains of pain in umbilical area Pain radiates to epigastric area Pain currently is 4 out of 10 on a pain scale. GI: Abdomen is round Abdomen is tender to palpation in epigastric area. Derm: Skin is pink, warm \T\ dry. Historical: - Allergies: 18:58 Darvocet-N 100; jl7 18:58 Iodine; jl7 18:58 Tape; jl7 18:58 Vicodin; jl7 - PMHx: 18:58 High Cholesterol; Hypertension; Myocardial infarction; peptic ulcers; jl7 - PSHx: 18:58 Cardiac stents x 7; jl7 - Immunization history:: Adult Immunizations unknown. - Infectious Disease History:: Denies. - Social history:: Smoking status: Patient reports the use of cigarette tobacco products. Screenin:10 [facility] ED Fall Risk Assessment (Adult) History of falling in the last 3 months, br2 including since admission No falls in past 3 months (0 pts) Confusion or Disorientation No (0 pts) Intoxicated or Sedated No (0 pts) Impaired Gait No (0 pts) Mobility Assist Device Used No (0 pt) Altered Elimination No (0 pt) Score/Fall Risk Level 0 - 2 = Low Risk. Abuse screen: Denies threats or abuse. Denies injuries from another. Nutritional screening: No deficits noted. Tuberculosis screening: No symptoms or risk factors identified. Assessment: 19:10 Reassessment: Patient and/or family updated on plan of care and expected duration. Pain br2 level reassessed. Patient is alert, oriented x 3, equal unlabored respirations, skin warm/dry/pink. General: Appears uncomfortable, Behavior is calm, cooperative. Pain: Complains of pain in anterior aspect of left upper chest, diaphragm, xiphoid area and mid-sternal area Pain currently is 3 out of 10 on a pain scale. at worst was 8 out of 10 on a pain scale. Pain began around noon today. Cardiovascular: Reports chest pain, Denies shortness of breath. GI: Abdomen is Bowel sounds present X 4 quads. Vital Signs: 18:57 BP 160 / 83; Pulse 67; Resp 17; Temp 97.8; Pulse Ox 97% ; Weight 78.47 kg; Height 5 ft. jl7 5 in. ; Pain 4/10; 20:08 BP 165 / 86; Pulse 68; Resp 18; Pulse Ox 97% ; cp4 20:50 BP 178 / 91; Pulse 66; Resp 18; Pulse Ox 96% ; Pain 8/10; br2 18:57 Body Mass Index 28.79 (78.47 kg, 165.1 cm) jl7 18:57 Pain Scale: Adult jl7 20:50 Pain Scale: Adult br2 ED Course: 18:13 Patient arrived in ED. mr 18:33 Israel Charles MD is Attending Physician. jessie 18:53 Attending Physician role handed off by Israel Charles MD ms3 18:53 Jero Shetty DO is Attending Physician. ms3 18:58 Triage completed. jl7 18:58 Arm band placed on right wrist. Patient placed in an exam room, Patient notified of jl7 wait time. 19:23 Paula Barber, KADI is Primary Nurse. br2 19:24 XRAY Chest (1 view) In Process Unspecified. EDMS 19:26 Patient has correct armband on for positive identification. Placed in gown. Bed in low br2 position. Call light in reach. Provided Education on: plan of care. 19:26 Inserted saline lock: 20 gauge in right antecubital area, using aseptic technique. br2 Blood collected. Flushed with 10 mL NS. 20:27 CT Abd/Pelvis - Without Contrast In Process Unspecified. EDMS 21:11 Gideon Brooks MD is Hospitalizing Provider. ms3 22:25 No provider procedures requiring assistance completed. Patient admitted, IV remains in br2 place. Administered Medications: 19:30 Drug: NS 0.9% IV 1000 ml IV at 1000 ml once; to be given as a bolus over 60 minutes br2 Route: IV; Rate: 1000 ml; Site: right antecubital; 20:30 Follow up: IV Status: Completed infusion; IV Intake: 1000ml br2 19:30 Drug: Famotidine IVP 20 mg IVP once; dilute with 10 mL 0.9% NaCl; give over 2 minutes br2 Route: IVP; Site: right antecubital; 20:30 Follow up: Response: No adverse reaction br2 19:30 Drug: Ondansetron IVP 4 mg IVP once; over 2 minutes Route: IVP; Site: right antecubital;br2 20:30 Follow up: Response: No adverse reaction br2 21:03 Drug: morphine IVP or IV 4 mg IVP once over 4 mins Route: IVP; Infused Over: 4 mins; br2 Site: right antecubital; 22:24 Follow up: Response: No adverse reaction; Pain is decreased br2 21:03 Not Given (Duplicate Order): morphineor iv 4 mg IVP once over 4 mins br2 Intake: 20:30 IV: 1000ml; Total: 1000ml. br2 Outcome: 21:11 Decision to Hospitalize by Provider. ms3 22:25 Admitted to Med/surg accompanied by tech, via wheelchair, room 209, br2 22:25 Condition: stable 22:25 Instructed on the need for admit, Demonstrated understanding of instructions, 22:25 Patient left the ED. br2 Signatures: Dispatcher [employer] EDMS Israel Charles MD MD cha Rivera, Mary, Reg Reg Jarvis Otto RN RN jl7 Jero Shetty DO DO ms3 Aruna Echevarria cp4 Jellico, Paula, RN RN br2
--- NOTE | 2024-04-26 21:12 | EDPHYS ---
Physician Documentation [facility] Name: Gray Mehta Age: 63 yrs Sex: Male : 1960 Arrival Date: 04/26/2024 Time: 18:08 Bed 8 Private MD: ED Physician Jero Shetty HPI: 04/26 19:07 This 63 yrs old Male presents to ER via Ambulatory with complaints of Abdominal Pain. ms3 19:07 63-year-old male with past medical history of hyperlipidemia, hypertension, myocardial ms3 infarction, coronary artery disease, peptic ulcers presents to the emergency department for periumbilical abdominal pain that began at noon. Patient states the pain radiates to the epigastric region. He rates his pain at 3-4 and states when his abdomen spasms the pain goes up to an 8/10. Patient denies nausea, vomiting, diarrhea.. Historical: - Allergies: 18:58 Darvocet-N 100; jl7 18:58 Iodine; jl7 18:58 Tape; jl7 18:58 Vicodin; jl7 - PMHx: 18:58 High Cholesterol; Hypertension; Myocardial infarction; peptic ulcers; jl7 - PSHx: 18:58 Cardiac stents x 7; jl7 - Immunization history:: Adult Immunizations unknown. - Infectious Disease History:: Denies. - Social history:: Smoking status: Patient reports the use of cigarette tobacco products. ROS: 19:07 Constitutional: Negative for fever, and chills. Cardiovascular: Negative for chest ms3 pain, and palpitations. Respiratory: Negative for shortness of breath, cough, wheezing, and pleuritic chest pain, MS/Extremity: Negative for injury and deformity, Skin: Negative for injury, rash, and discoloration, 19:07 Abdomen/GI: Positive for abdominal pain, Negative for nausea, vomiting, and diarrhea, Exam: 19:07 Constitutional: This is a well developed, well nourished patient who is awake, alert, ms3 and in no acute distress. Chest/axilla: Normal chest wall appearance and motion. Nontender with no deformity. Cardiovascular: Regular rate and rhythm with a normal S1 and S2. No gallops, murmurs, or rubs. Normal PMI, no JVD. No pulse deficits. Respiratory: Lungs have equal breath sounds bilaterally, clear to auscultation and percussion. No rales, rhonchi or wheezes noted. No increased work of breathing, no retractions or nasal flaring. Skin: Warm, dry with normal turgor. Normal color with no rashes, no lesions, and no evidence of cellulitis. 19:07 Abdomen/GI: Inspection: abdomen appears normal, Bowel sounds: normal, Palpation: moderate abdominal tenderness, in the epigastric area and umbilical area, 19:27 ECG was reviewed by the Attending Physician. ms3 Vital Signs: 18:57 BP 160 / 83; Pulse 67; Resp 17; Temp 97.8; Pulse Ox 97% ; Weight 78.47 kg; Height 5 ft. jl7 5 in. ; Pain 4/10; 20:08 BP 165 / 86; Pulse 68; Resp 18; Pulse Ox 97% ; cp4 20:50 BP 178 / 91; Pulse 66; Resp 18; Pulse Ox 96% ; Pain 8/10; br2 18:57 Body Mass Index 28.79 (78.47 kg, 165.1 cm) jl7 18:57 Pain Scale: Adult jl7 20:50 Pain Scale: Adult br2 MDM: 18:33 Medical Screening Exam initiated jessie 19:07 Differential diagnosis: coronary artery disease, cholecystitis, Cholelithiasis, ms3 diverticulitis, myocardia ischemia or infarction, non-specific abd pain, pancreatitis. 04/27 01:42 Data reviewed: vital signs, nurses notes, lab test result(s), EKG, radiologic studies, ms3 and as a result, I will admit patient. Consideration of Admission/Observation Patient was admitted/placed on observation. Management of patient was discussed with the following: Hospitalist: Dr Brooks. I considered the following discharge prescriptions or medication management in the emergency department Medications were administered in the Emergency Department. See MAR. Independent interpretation of the following test(s) in the Emergency Department EKG: See my EKG interpretation above. Counseling: I had a detailed discussion with the patient and/or guardian regarding the historical points, exam findings, and any diagnostic results supporting the discharge/admit diagnosis, lab results, radiology results, the need for further work-up and treatment in the hospital. ED course: Discussed labs and necessity for admission with patient and his . They understand and agree with plan. Patient does endorse drinking 6 beers per day.. 04/26 18:34 Order name: Basic Metabolic Panel; Complete Time: 01:47 jessie 04/26 18:34 Order name: CBC with Diff; Complete Time: 19:50 jessie 04/26 18:34 Order name: LFT's; Complete Time: 01:47 jessie 04/26 18:34 Order name: Magnesium; Complete Time: 01:47 jessie 04/26 18:34 Order name: NT PRO-BNP; Complete Time: 01:47 jessie 04/26 18:34 Order name: PT-INR; Complete Time: 19:50 jessie 04/26 18:34 Order name: Troponin HS; Complete Time: 01:47 jessie 04/26 18:34 Order name: Lipase; Complete Time: 01:47 jessie 04/26 18:34 Order name: Urinalysis w/ reflexes; Complete Time: 20:31 jessie 04/26 21:13 Order name: Lipid Profile; Complete Time: 01:47 EDMS 04/26 21:17 Order name: Liver (Hepatic) Function; Complete Time: 01:47 EDMS 04/26 21:17 Order name: Magnesium EDMS 04/26 21:17 Order name: Phosphorus EDMS 04/26 21:17 Order name: Lipase EDMS 04/26 21:17 Order name: Lipase EDMS 04/26 21:17 Order name: Lipase EDMS 04/26 21:18 Order name: CBC with Automated Diff EDMS 04/26 21:18 Order name: CBC with Automated Diff EDMS 04/26 21:18 Order name: CBC with Automated Diff EDMS 04/26 21:18 Order name: CBC with Automated Diff EDMS 04/26 21:18 Order name: Comprehensive Metabolic Panel EDMS 04/26 21:18 Order name: Comprehensive Metabolic Panel EDMS 04/26 21:18 Order name: Comprehensive Metabolic Panel EDMS 04/26 21:18 Order name: Comprehensive Metabolic Panel EDMS 04/26 21:18 Order name: Comprehensive Metabolic Panel EDMS 04/26 22:20 Order name: Phosphorus; Complete Time: 01:47 EDMS 04/26 18:34 Order name: XRAY Chest (1 view); Complete Time: 20:31 jessie 04/26 19:04 Order name: CT Abd/Pelvis - Without Contrast; Complete Time: 21:10 ms3 04/26 21:17 Order name: Delirium Tremens Prophylaxis-IV Meds EDMS 04/26 18:34 Order name: Cardiac monitoring; Complete Time: 20:30 [facility] 04/26 18:34 Order name: EKG - Nurse/Tech; Complete Time: 19:37 [facility] 04/26 18:34 Order name: IV Saline Lock; Complete Time: 20:30 [facility] 04/26 18:34 Order name: Labs collected and sent; Complete Time: 20:30 [facility] 04/26 18:34 Order name: O2 Per Protocol; Complete Time: 20:30 [facility] 04/26 18:34 Order name: O2 Sat Monitoring; Complete Time: 20:30 [facility] EC/22 19:27 Rate is 59 beats/min. Rhythm is regular. QRS [place] is Normal. MI interval is normal. QRS ms3 interval is normal. Clinical impression: Sinus bradycardia. Interpreted by me. Reviewed by me. Administered Medications: 19:30 Drug: NS 0.9% IV 1000 ml IV at 1000 ml once; to be given as a bolus over 60 minutes br2 Route: IV; Rate: 1000 ml; Site: right antecubital; 20:30 Follow up: IV Status: Completed infusion; IV Intake: 1000ml br2 19:30 Drug: Famotidine IVP 20 mg IVP once; dilute with 10 mL 0.9% NaCl; give over 2 minutes br2 Route: IVP; Site: right antecubital; 20:30 Follow up: Response: No adverse reaction br2 19:30 Drug: Ondansetron IVP 4 mg IVP once; over 2 minutes Route: IVP; Site: right antecubital;br2 20:30 Follow up: Response: No adverse reaction br2 21:03 Drug: morphine IVP or IV 4 mg IVP once over 4 mins Route: IVP; Infused Over: 4 mins; br2 Site: right antecubital; 22:24 Follow up: Response: No adverse reaction; Pain is decreased br2 21:03 Not Given (Duplicate Order): morphineor iv 4 mg IVP once over 4 mins br2 Disposition Summary: 04/26/24 21:11 Hospitalization Ordered Notes: Hospitalization Status: Inpatient Admission ms3 Provider: Gideon Brooks ms3 Location: Telemetry/MedSurg (Inpatient) ms3 Condition: Stable ms3 Problem: new ms3 Symptoms: are unchanged ms3 Bed/Room Type: Standard ms3 Room Assignment: 209(04/26/24 21:36) [facility] Diagnosis - Alcohol induced acute pancreatitis without necrosis or infection ms3 - Abdominal pain, unspecified ms3 Forms: - Medication Reconciliation Form ms3 - SBAR form ms3 - Leadership Thank You Letter ms3 Signatures: Dispatcher [employer] EDMS Israel Charles MD MD cha Leal, Jahala, RN RN jl7 Jero Shetty, DO ms3 Evette Sol [facility] Paula Barber, RN RN br2 Corrections: (The following items were deleted from the chart) 18:35 18:35 BASIC METABOLIC PANEL+C.LAB.BRZ ordered. EDMS EDMS 18:35 18:35 CBC+H.LAB.BRZ ordered. EDMS EDMS 18:35 18:35 HEPATIC FUNCTION+C.LAB.BRZ ordered. EDMS EDMS 18:35 18:35 MAGNESIUM+C.LAB.BRZ ordered. EDMS EDMS 18:35 18:35 PROBNP+C.LAB.BRZ ordered. EDMS EDMS 18:35 18:35 PROTIME (+INR)+COAG.LAB.BRZ ordered. EDMS EDMS 18:35 18:35 Troponin High Sensitivity+C.LAB.BRZ ordered. EDMS EDMS 18:35 18:35 LIPASE+C.LAB.BRZ ordered. EDMS EDMS 18:35 18:35 Urinalysis+U.LAB.BRZ ordered. EDMS EDMS 18:35 18:35 Chest Single View+RAD.RAD.BRZ ordered. EDMS EDMS 19:05 19:05 Abdomen Pelvis Wo Con+CT.RAD.BRZ ordered. EDMS EDMS 21:12 21:02 LIPID PROFILE+C.LAB.BRZ ordered. EDMS EDMS 21:36 21:11 ms3 [facility]
[2024-04-26] MEDS ORDERED: HYDRALAZINE HCL 20 MG/ML VIAL IV PRN (21:15)
--- NOTE | 2024-04-26 21:22 | P.HP ---
Certification for Inpatient With expected LOS: >2 Midnights Patient will require the following post-hospital care: None Practitioner: I am a practitioner with admitting privileges, knowledge of patient current condition, hospital course, and medical plan of care. Services: Services provided to patient in accordance with Admission requirements found in Title 42 Section 412.3 of the Code of Federal Regulations Patient History Date of Service: 04/26/24 Reason for admission: Abdominal pain History of Present Illness: 60-year-old male with past medical history of HTN/HLD/CAD status post PCI's in the past/GERD/gastritis/chronic alcohol abuse who presented because of periumbilical pain radiating to the epigastric area. Onset was earlier this afternoon. Patient described pain as crampy in nature rated at about 8 out of 10. Pain was associated with mild nausea but no overt vomiting. He admits to regular alcohol intake is drinks about 6 packs/day. He denies any abdominal trauma. He denies any diarrhea or constipation. He denies any hematemesis. Arrival in the ED blood pressure was in the 170s over 80s, nontachycardic, afebrile, laboratory workup shows WBC of 70,000 with right shift, BMP was unremarkable, lipase level was elevated at 1759, CT of the abdomen and pelvis shows evidence of acute pancreatitis superimposed on sequelae of chronic pancreatitis. No necrosis elicited. Possibility of duodenal diverticula also noted. Patient is being admitted for acute pancreatitis with alcohol withdrawal Allergies hydrocodone [From Vicodin] Allergy (Verified 08/20/15 04:40) Unknown iodine Allergy (Verified 08/20/15 04:40) Unknown propoxyphene [From Darvocet-N 100] Allergy (Verified 08/20/15 04:40) Unknown Tape Allergy (Uncoded 08/20/15 04:40) Unknown Home Medications: Acetaminophen/Chlorpheniramine [Coricidin Hbp Cold-Flu Tablet] 1 each PO PRN 08/20/15 Amlodipine [Norvasc*] 1 tab PO DAILY 08/20/15 Fenofibrate,Micronized [Fenofibrate] 1 tab PO BEDTIME 08/20/15 Losartan/Hydrochlorothiazide [Losartan-Hctz 100-12.5 mg Tab] 1 each PO DAILY 08/20/15 Metoprolol Succinate 1 tab PO DAILY 08/20/15 Multivit-Min/FA/Lycopen/Lutein [Centrum Silver Tablet] 1 each PO DAILY 08/20/15 Sabina-3S/Dha/Epa/Fish Oil/D3 [Fish Oil-Vit D3 Softgel] 1 tab PO DAILY 08/20/15 Simvastatin 80 mg PO BEDTIME 08/20/15 Pantoprazole [Protonix Tab*] 40 mg PO BIDAC #60 tab 08/22/15 - Past Medical/Surgical History -: HTN -: High Cholesterol -: 7 stents in his heart -: Titanium plate in neck vertabre - Social History Smoking Status: Current every day smoker Smoking therapy provided: Yes Patient receptive to therapy: Yes Alcohol use: Yes CD- Drugs: No Caffeine use: Yes Place of Residence: Home Review of Systems Gastrointestinal: Nausea, Abdominal Pain Physical Examination - Physical Exam General: Alert, In no apparent distress, Oriented x3, Cooperative HEENT: Atraumatic, Normocephalic, PERRLA Neck: Supple, 2+ carotid pulse no bruit, JVD not distended Respiratory: Clear to auscultation bilaterally, Normal air movement Cardiovascular: No edema, Normal pulses, Regular rate/rhythm, Normal S1 S2 Gastrointestinal: Normal bowel sounds, Soft and benign, Non-distended, Tenderness Musculoskeletal: No clubbing, No swelling Integumentary: No rashes, No breakdown Neurological: Normal speech, Normal strength at 5/5 x4 extr, Normal tone, Normal reflexes 2+, Other (mild hand tremors ) - Studies Laboratory Data (last 24 hrs) 04/26/24 04/26/24 04/26/24 21:02 19:14 19:14 WBC 17.10 H Hgb 15.5 Hct 45.9 Plt Count 309 PT 12.2 INR 1.07 Sodium Potassium BUN Creatinine Glucose Magnesium Total Bilirubin AST ALT Alkaline Phosphatase Triglycerides Cancelled Cholesterol Cancelled HDL Cholesterol Cancelled Cholesterol/HDL Ratio Cancelled Lipase 04/26/24 19:14 WBC Hgb Hct Plt Count PT INR Sodium 138 Potassium 4.3 BUN 16 Creatinine 1.23 Glucose 118 H Magnesium 1.9 Total Bilirubin 0.5 AST 27 ALT 36 Alkaline Phosphatase 60 Triglycerides Cholesterol HDL Cholesterol Cholesterol/HDL Ratio Lipase 1769 H Assessment and Plan - Problems (Diagnosis) (1) Pancreatitis Current Visit: Yes Status: Acute (2) Gastric peptic ulcer Current Visit: No Status: Acute (3) Hyperlipidemia Current Visit: No Status: Acute (4) Hypertension Current Visit: No Status: Acute - Plan Impression Acute on chronic pancreatitislikely related to alcohol abuse Alcohol withdrawal Hypertension History of CAD History of GERD HLD Plan We admit patient to inpatient Will start gentle IV fluid with lactated Ringer's Pain control Keep n.p.o. except for meds Daily lipase level IV hydralazine as needed Obtain triglyceride level to rule out etiology of pancreatitis from hypertriglyceridemia Resume metoprolol as well as statin Initiate CIWA protocol for alcohol withdrawal Smoking cessation advised Full code Subcutaneous Lovenox for DVT prophylax Possible hospital stay for more than 48 hours Will continue to follow Total time spent in evaluation and discussion with patient greater than 75 minutes Discharge Plan: Home Plan to discharge in: 48 Hours - Advance Directives Does patient have a Living Will: No Does patient have a Durable POA for Healthcare: No Physician Review: Patient Assessed, Agree with Above Assessment and Plan Time Spent Managing Pts Care (In Minutes): 75
[2024-04-26] MEDS: Ringers Lactate 1,000 ML IV SCH (22:00)
[2024-04-26 22:20] LABS: Albumin 3.1 g/dL (3.4-5.0); Albumin/Globulin Ratio 0.9 (1.1-1.8); Bilirubin Direct 0.2 mg/dL (0-0.2); Bilirubin Indirect, Calculated 0.2 mg/dL (0.2-0.8); Bilirubin Total 0.4 mg/dL (0.2-1.0); Globulin 3.5 g/dL (2.3-3.5); Phosphorus 3.1 mg/dL (2.5-4.9); Protein, Total 6.6 g/dL (6.4-8.2)
[2024-04-26] MEDS: LORazepam 2 MG/ML VIAL IV SCH (23:03)
[2024-04-27 06:25] LABS: Absolute Eosinophils 0.1 K/uL (0-0.5); Absolute Lymphocytes (CBC) 1.1 K/uL (0.7-4.9); Absolute Neutrophil 7.6 K/uL (1.8-8.0); Basophils % 0.5 % (0-1.3); Eosinophils % 1.2 % (0-4.4); Lymphocytes % 11.5 % (15.3-44.8); MCH 31.9 pg (27.0-35.0); MCHC 33.4 g/dL (32.0-36.0); MCV 95.4 fL (80-100); MPV 7.7 fL (7.6-11.3); Monocytes % 10.4 % (3.3-12.3); Neutrophils % 76.4 % (41.7-73.7); Nucleated Red Blood Cells % 0.1 % (0-0); Platelets 264 thou/uL (152-406); Red Cell Distribution Width 12.7 % (12.1-15.2)
[2024-04-27 06:43] LABS: Albumin 2.8 g/dL (3.4-5.0); Albumin/Globulin Ratio 0.8 (1.1-1.8); Bilirubin Total 0.6 mg/dL (0.2-1.0); Globulin 3.6 g/dL (2.3-3.5); Protein, Total 6.4 g/dL (6.4-8.2)
[2024-04-27 06:45] LABS: Magnesium 2.3 mg/dL (1.6-2.4)
[2024-04-27] MEDS: PANTOPRAZOLE 40MG TABLET PO SCH (07:30)
--- NOTE | 2024-04-27 09:34 | P.PN ---
Subjective Date of Service: 04/27/24 Chief Complaint: Abdominal pain Seen resting at bedside. overnight events noted. george continue gentle fluids. he is sleeping. no fevers or chills overnight. Review of Systems 10-point ROS is otherwise unremarkable Physical Examination - Vital Signs Temperature: 98.5 F Blood Pressure: 147/75 Pulse: 62 Respirations: 18 Pulse Ox (%): 96 - Physical Exam General: In no apparent distress, Obese HEENT: Atraumatic, Normocephalic Neck: Supple, 2+ carotid pulse no bruit Respiratory: Clear to auscultation bilaterally, Normal air movement Cardiovascular: Normal pulses, Edema Capillary refill: <2 Seconds Gastrointestinal: Normal bowel sounds Musculoskeletal: No clubbing Integumentary: No rashes Neurological: Normal gait Lymphatics: No axilla or inguinal lymphadenopathy - Studies Laboratory Data (last 24 hrs) 04/26/24 04/26/24 04/26/24 21:02 19:14 19:14 WBC 17.10 H Hgb 15.5 Hct 45.9 Plt Count 309 PT 12.2 INR 1.07 Sodium Potassium BUN Creatinine Glucose Magnesium Total Bilirubin AST ALT Alkaline Phosphatase Triglycerides Cancelled Cholesterol Cancelled HDL Cholesterol Cancelled Cholesterol/HDL Ratio Cancelled Lipase 04/26/24 19:14 WBC Hgb Hct Plt Count PT INR Sodium 138 Potassium 4.3 BUN 16 Creatinine 1.23 Glucose 118 H Magnesium 1.9 Total Bilirubin 0.5 AST 27 ALT 36 Alkaline Phosphatase 60 Triglycerides 170 H Cholesterol 137 HDL Cholesterol 46 Cholesterol/HDL Ratio 2.98 Lipase 1769 H Assessment And Plan - Plan acute on chronic pancreatitis alcohol withdrawal Essential hypertension History of CAD s/p PCI History of GERD Hyperlipidemia leukocytosis resolved -Continue slow rate LR -CIWA protocol -lipase level improving -add pancrelipase -full liquid diet as tolerated -continue lisinopril, amlodipine, metoprolol -dosed with merrem -continue PPI, -continue statin and fenofibrate Physician Review: Patient Assessed, Agree with Above Assessment and Plan
[2024-04-27] MEDS: Meropenem 1,000 MG in NA CHLORIDE 0.9% 100 ML IV SCH (09:52)
[2024-04-27] MEDS: AMLODIPINE 5 MG TAB PO SCH (09:52)
[2024-04-27] MEDS: Ringers Lactate 1,000 ML IV SCH (09:52)
[2024-04-27] MEDS: DOCOSAHEXANOIC AC/EPA 1000 MG PO SCH (09:52)
[2024-04-27] MEDS: METOPROLOL XL 50 MG TAB PO SCH (09:53)
[2024-04-27] MEDS: ENOXAPARIN 40 MG/0.4 ML SQ SCH (09:53)
[2024-04-27] MEDS: lisinopriL 10 MG TAB PO SCH (09:54)
[2024-04-27] MEDS: FOLIC ACID 1 MG, MULTIVITAMINS INJ 10 ML, THIAMINE HCL 100 MG in NA CHLORIDE 0.9% 1,000 ML IV SCH (10:55)
[2024-04-27] MEDS: AMYLASE/LIPASE/PROTEASE CAP PO SCH (10:56)
[2024-04-27] MEDS: MORPHINE 2 MG/ML SYR IV PRN (17:25)
[2024-04-27] MEDS: FENOFIBRATE 160 MG TAB PO SCH (20:16)
[2024-04-27] MEDS: ATORVASTATIN 40 MG TAB PO SCH (20:16)
[2024-04-27] MEDS ORDERED: FENOFIBRATE 134 MG PO SCH (21:00)
[2024-04-27 22:37] VITALS: BMI 28.8
[2024-04-28 04:46] LABS: Absolute Eosinophils 0.2 K/uL (0-0.5); Absolute Lymphocytes (CBC) 1.1 K/uL (0.7-4.9); Absolute Monocytes 0.9 K/uL (0.1-1.3); Basophils % 0.3 % (0-1.3); Eosinophils % 1.7 % (0-4.4); Hematocrit 40.4 % (39.6-49.0); Hemoglobin 13.6 g/dL (13.6-17.9); Lymphocytes % 10.4 % (15.3-44.8); MCHC 33.6 g/dL (32.0-36.0); MCV 95.2 fL (80-100); MPV 8.1 fL (7.6-11.3); Monocytes % 9.1 % (3.3-12.3); Neutrophils % 78.5 % (41.7-73.7); Platelets 243 thou/uL (152-406); RBC Red Blood Cell Count 4.24 M/uL (4.33-5.43); Red Cell Distribution Width 12.4 % (12.1-15.2)
[2024-04-28 05:03] LABS: Albumin 2.7 g/dL (3.4-5.0); Albumin/Globulin Ratio 0.8 (1.1-1.8); Anion Gap 9.8 mEq/L (5.0-15.0); Bilirubin Total 0.4 mg/dL (0.2-1.0); Globulin 3.5 g/dL (2.3-3.5); Potassium 3.8 mEq/L (3.5-5.1); Protein, Total 6.2 g/dL (6.4-8.2)
[2024-04-28 08:31] VITALS: O2SAT 96
[2024-04-28 08:59] VITALS: BP 157/77; TEMP 98.6
[2024-04-28] MEDS ORDERED: FOLIC ACID 1 MG TABLET PO SCH (09:00)
[2024-04-28] MEDS ORDERED: MULTIVITAMIN TAB PO SCH (09:00)
[2024-04-28] MEDS ORDERED: THIAMINE HCL 100 MG TABLET PO SCH (09:00)
--- NOTE | 2024-04-28 09:11 | P.DS ---
Admission Date: 04/26/24 Discharge Date: 04/28/24 Disposition: ROUTINE DISCHARGE Discharge Condition: GOOD Reason for Admission: Abdominal pain Hospital Course: 60-year-old male with a past medical history of hypertension, hyperlipidemia, CAD status post PCI, chronic alcohol abuse, GERD who presented with severe epigastric pain and was found to have pancreatitis with a lipase level of [address] of the abdomen showed acute pancreatitis superimposed on chronic pancreatitis. Started on IV fluid and kept NPO. His lipase level gradually decreased. In addition he was found to have some elevated triglyceride. His clinical condition improved over the course of his stay he is now tolerating a diet. The remainder of his medical problems are chronic. He has been medically optimized for discharge. Vital Signs/Physical Exam: Temp Pulse Resp BP Pulse Ox 98.6 F 67 16 157/77 H 96 04/28/24 08:00 04/28/24 08:00 04/28/24 08:00 04/28/24 08:00 04/28/24 08:00 General: Alert, In no apparent distress HEENT: Atraumatic, Normocephalic Neck: Supple, 2+ carotid pulse no bruit Respiratory: Clear to auscultation bilaterally, Normal air movement Cardiovascular: No edema, Normal pulses Capillary refill: <2 Seconds Gastrointestinal: Normal bowel sounds Musculoskeletal: No clubbing, No swelling Integumentary: No rashes, No breakdown Neurological: Normal gait, Normal speech Lymphatics: No axilla or inguinal lymphadenopathy Laboratory Data at Discharge: WBC 10.20 thou/uL (4.3-10.9) 04/28/24 04:26 Hgb 13.6 g/dL (13.6-17.9) 04/28/24 04:26 Hct 40.4 % (39.6-49.0) 04/28/24 04:26 Plt Count 243 thou/uL (152-406) 04/28/24 04:26 PT 12.2 SECONDS (10.0-13.0) 04/26/24 19:14 INR 1.07 04/26/24 19:14 Sodium 138 mEq/L (136-145) 04/28/24 04:26 Potassium 3.8 mEq/L (3.5-5.1) 04/28/24 04:26 BUN 10 mg/dL (7-18) 04/28/24 04:26 Creatinine 0.93 mg/dL (0.70-1.30) 04/28/24 04:26 Glucose 124 mg/dL (74-106) H 04/28/24 04:26 Phosphorus Cancelled 04/26/24 Unknown Magnesium 2.3 mg/dL (1.6-2.4) 04/27/24 06:16 Total Bilirubin 0.4 mg/dL (0.2-1.0) 04/28/24 04:26 AST 18 U/L (15-37) 04/28/24 04:26 ALT 25 U/L (16-61) 04/28/24 04:26 Alkaline Phosphatase 52 U/L (45-117) 04/28/24 04:26 Triglycerides Cancelled 04/26/24 21:02 Cholesterol Cancelled 04/26/24 21:02 HDL Cholesterol Cancelled 04/26/24 21:02 Cholesterol/HDL Ratio Cancelled 04/26/24 21:02 Lipase 592 U/L (13-75) H 04/28/24 04:26 Home Medications: Amlodipine [Norvasc*] 1 tab PO DAILY 08/20/15 Fenofibrate,Micronized [Fenofibrate] 1 tab PO BEDTIME 08/20/15 Metoprolol Succinate 1 tab PO DAILY 08/20/15 Multivit-Min/FA/Lycopen/Lutein [Centrum Silver Tablet] 1 each PO DAILY 08/20/15 Clopidogrel Bisulfate [Plavix*] 75 mg PO DAILY 04/26/24 [place]-3S/Dha/Epa/Fish Oil [Fish Oil [place]-3 Softgel] 1 each PO DAILY 04/26/24 Omeprazole Magnesium 20 mg PO DAILY 04/26/24 lisinopriL [Lisinopril] 10 mg PO DAILY 04/26/24 Atorvastatin Calcium [Lipitor] 40 mg PO BEDTIME #30 tab 04/28/24 New Medications: Atorvastatin Calcium [Lipitor] 40 mg PO BEDTIME #30 tab Followup: NONE,NONE [Primary Care Provider] -
--- NOTE | 2024-04-28 12:02 | EKG ---
Test Date: 2024-04-26 Test Time: 19:14:27 Renovator Machine Operator: AXEL MEASUREMENT RESULTS: Intervals: Rate: 59 GA: 142 QRSD: 82 QT: 404 QTc: 399 [place]: P: 48 GA: 142 QRS: -11 T: -9 INTERPRETIVE STATEMENTS: Sinus bradycardia T wave abnormality, consider lateral ischemia Abnormal ECG Compared to ECG 01/20/2021 16:01:47 Possible ischemia now present Sinus rhythm no longer present T-wave abnormality still present Electronically Signed On 04-28-24 11:59:05 ANATOMIC PATHOLOGIST by Demetris Mendieta
[2024-04-28] MEDS ORDERED: LORazepam 2 MG/ML VIAL IV SCH (22:00)
== END 2024-04-28 09:53 | disposition home or self-care (01) | DRG 439 ==
LOC: ER 18:08 → ERHOLD 21:10 → 2ND 21:45
PROVIDERS: ADMIT Internal Medicine; ATTEND Family Medicine
DX: K85.20 Alcohol induced acute pancreatitis without necrosis or infection (principal); F10.139 Alcohol abuse with withdrawal, unspecified; K25.3 Acute gastric ulcer without hemorrhage or perforation; I10 Essential (primary) hypertension; E66.9 Obesity, unspecified; E78.00 Pure hypercholesterolemia, unspecified; K21.9 Gastro-esophageal reflux disease without esophagitis; K86.0 Alcohol-induced chronic pancreatitis; E78.1 Pure hyperglyceridemia; I25.2 Old myocardial infarction; I25.10 Atherosclerotic heart disease of native coronary artery without angina pectoris; F17.210 Nicotine dependence, cigarettes, uncomplicated; Z88.5 Allergy status to narcotic agent; Z95.5 Presence of coronary angioplasty implant and graft; Z68.26 Body mass index [BMI] 26.0-26.9, adult; Z79.02 Long term (current) use of antithrombotics/antiplatelets; Z79.899 Other long term (current) drug therapy
CPT/HCPCS: 36415; 71045; 74176; 80048; 80053; 80061; 80076; 81003; 83690; 83735; 83880; 84100; 84484; 85025; 85610; 93005; 96361; 96374; 96375; 99285; J1650; J2185; J2270; J2405; J3411; J7030; J7120

== ENCOUNTER 2024-04-29 01:04 | Inpatient (IN) | payer BC, SELFPAY ==
--- OUTSIDE RECORDS SUMMARY | 2024-04-29 01:08 | XMS REPORT | Continuity of Care Document ---
Author Name Unknown Address [address] [facility] [address] [place] [address] [facility] thconnect Address [address] [facility] [place] [address] Care Team Providers Care Keypunch Operator Name Role Phone Jony Dee Primary Care Physician + [phone] KARI RODGERS Attending Clinician Unavailable JUSTICE WILLIAM Attending Clinician Unavail able RIKI LLOYD Attending Clinician Unavailab le LAB90 Attending Clinician Unavailable ROSLYN GARCIA Attending Clinician Unavailable Roslyn Mancuso Attending Clinician + [phone] Lab, Ang - Db Attending Clinician Unavailable Jony Dee Attending Clinician [phone] JONY COSTA Attending Clinician Unavailable Doctor Unassigned, [place] Attending Clinician U Pauly Webster MA Attending Clinician UnavailClaudia Bates MD Attending Clinician + [phone] CASSIE DOMINGUEZ Attending Clinician Unavailable CLAUDIA LIU Attending Clinician UnavailCECY Garner Attending Clinician Unavail able JAHAIRA PRICE Attending Clinician Unavailable Payers Payer Name Policy Type Policy Number Effective Date Expirati on Date Source [facility] 2 [id number] 2023 00:00:00 BCBS [facility] [id number] 2020 00:00:00 Problems Condition Name Condition Details Condition Category Status Onset Date Resolution Date Last Treatment Date Treating Clinician Comments Source jail (current) use of antithromb otics/anti platelets 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 of antithromb otics/anti platelets Disease [...] reflux disease) Disease Active 00:00: 00 Evette Gutierrezybold - Externa l Hx of heart artery stent Hx of heart artery stent Disease Active 00:00: 00 Evette Seybold - Externa l Skin cancer Skin cancer Disease Active 00:00: 00 Evette Gutierrezybold - Externa l Hx of colonic polyp Hx of colonic polyp Disease Active 00:00: 00 Evette Seybold - Externa l Screening for colorectal cancer Screening for colorectal cancer Disease Active 07-29 00:00: 00 [facility] Prediabete s Prediabete s Disease Active 07-14 00:00: 00 [facility] Coronary artery disease Coronary artery disease Disease Active 07-06 00:00: 00 [facility] S/P coronary artery stent placement S/P coronary artery stent placement Disease Active 07-06 00:00: 00 Overview: Formattin g of this note might be different from the original. At least 7 stents per the patient [facility] Essential hypertensi on Essential hypertensi on Disease Active 04 00:00: 00 [facility] Mixed hyperlipid emia Mixed hyperlipid emia Disease Active - 00:00: 00 [facility] GERD (gastroeso phageal reflux disease) GERD (gastroeso phageal reflux disease) Disease Active 07-06 00:00: 00 [facility] History of blood transfusio n History of blood transfusio n Disease Active 07-06 00:00: 00 [facility] Allergies, Adverse Reactions, Alerts Allergy Name Allergy Type Status Severity Reaction(s) Onset Date Inactive Date Treating Clinician Comments Source Skin Adhesive s Propensi ty to adverse reaction s Active Rash 0 2-29 00:00: 00 Evette Seybold - Externa l Hydrocod one-Acet aminophe n Propensi ty to adverse reaction s Active Nausea and Vomiting 0 5-04 00:00: 00 Evette Seybold - Externa l Iodine And Iodide Containi ng Products Propensi ty to adverse reaction s Active Itching 0 5-04 00:00: 00 [facility] ADHESIVE TAPE-TAMARA ICONES DRUG Active Rash 0 5-04 00:00: 00 [facility] IODINE AND IODIDE CONTAINI NG PRODUCTS Drug Class Active ITCHING 0 5-04 00:00: 00 [facility] PROPOXYP HENE N-ACETAM INOPHEN DRUG Active N/V 2020-0 5-04 00:00: 00 [facility] HYDROCOD ONE-ACET AMINOPHE N DRUG Active N/V 2020-0 5-04 00:00: 00 [facility] Iodine And Iodide Containi ng Products Propensi ty to adverse reaction s Active Itching 0 5-04 00:00: 00 [facility] Adhesive Tape-Tamara icones Propensi ty to adverse reaction s Active Rash 0 5-04 00:00: 00 [facility] Propoxyp hene N-Acetam inophen Propensi ty to adverse reaction s Active Nausea and/or Vomiting 5-04 00:00: 00 [facility] Social History Social Habit Start Date Stop Date Quantity Comments Source History SDOH Alcohol Frequency [facility] History SDOH Alcohol Std Drinks [facility] History SDOH Alcohol Binge [facility] Sexual orientation Wale jaja Ching - External History of tobacco use Cigarette [...] (event) 2022-02-27 00:00:00 2022-03-09 16:26:00 Not sure [facility] Tobacco use and exposure 2022-03-09 00:00:00 2022-03-09 00:00:00 Smokeless tobacco non-user [facility] Sex Assigned At 1960 00:00:00 1960 [...] Yes Take by mouth daily. Evette em Wingate-3 Fatty Acids (Wingate-3 Fish Oil) 1200 MG oral Capsule 08:57: 20 Yes [id number] Take by mouth daily. Evette em Clopidogrel Bisulfate (PLAVIX) 75 MG oral Tablet 04-20 00:00: 00 Yes [id number] 75mg Take 1 tablet (75 mg total) by mouth daily. Evette em Amlodipine Besylate (NORVASC) 5 MG oral Tablet 04-20 00:00: 00 Yes [id number] 5mg Take 1 tablet (5 mg total) by mouth daily. Evette em Omeprazole 20 MG oral Delayed Release Capsule 04-14 00:00: 00 Yes 20mg Take 1 capsule (20 mg total) by mouth daily. Evette em Fenofibrate 134 MG oral Capsule 03-21 00:00: 00 Yes [id number] TAKE ONE (1) CAPSULE BY MOUTH EVERY DAY WITH FOOD. Evette em Metoprolol Tartrate (LOPRESSOR) 50 MG oral Tablet 2022-03 00:00: 00 Yes [id number] TAKE ONE (1) TABLET BY MOUTH TWICE DAILY WITH MEALS. Evette em Lisinopril 10 MG oral Tablet 2022-03 00:00: 00 Yes [id number] 10mg Take 1 tablet (10 mg total) by mouth daily. Evette em azithromyci n 250 mg tablet 2022-03 00:00: 00 Yes [id number] Take 500 mg PO day 1, then 250 mg PO days 2 to 5 [facility] benzonatate (TESSALON PERLES) 100 mg capsule 2022-03 00:00: 00 Yes [id number] 100mg Take 1 capsule by mouth 3 (three) times daily as needed for Cough. [facility] albuterol 90 mcg/actuati on inhaler 2022-03 00:00: 00 Yes [id number] 2{puff} Inhale 2 Puffs every 6 (six) hours as needed for Wheezing. [facility] Azelastine HCl 0.1 % nasal Solution 2022-03 00:00: 00 Yes [id number] 1{spray } 1 spray by nasal route 2 times daily. Evette Perez l benzonatate (TESSALON PERLES) 100 mg capsule 03-09 00:00: 00 01-11 00:00 :00 No [id number] 100mg Take 1 capsule by mouth every 8 (eight) hours as needed for Cough. [facility] azithromyci n 250 mg tablet 03-09 00:00: 00 01-11 00:00 :00 No [id number] 250mg Take 1 tablet by mouth in the morning. [facility] Wingate-3-DHA -EPA-Fish Oil (FISH OIL) 1,200 (144-216) mg Cap 07-06 14:58: 42 Yes Take by mouth daily. [facility] folic acid/multiv it-min/lute in (CENTRUM SILVER ORAL) 07-06 14:58: 42 Yes Take by mouth daily. [facility] aspirin E.C. 325 mg EC tablet 07-06 14:58: 42 Yes 325mg Take 325 mg by mouth daily. [facility] Wingate-3-DHA -EPA-Fish Oil (FISH OIL) 1,200 (144-216) mg Cap 07-06 14:58: 42 Yes Take by mouth daily. [facility] clobetasoL 0.05 % ointment 07-06 00:00: 00 Yes [id number] Apply to area(s) 2 (two) times daily. [facility] simvastatin 80 mg tablet 06-28 00:00: 00 Yes 80mg Take 80 mg by mouth daily. [facility] omeprazole 20 mg capsule 06-27 00:00: 00 Yes 20mg Take 20 mg by mouth daily. [facility] fenofibrate micronized 134 mg capsule 06-08 00:00: 00 Yes TAKE 1 CAPSULE BY MOUTH EVERY DAY WITH FOOD [facility] metoprolol tartrate 50 mg tablet 315 00:00: 00 Yes 50mg Take 50 mg by mouth 2 (two) times daily with meals. [facility] amLODIPine 5 mg tablet 3-08 00:00: 00 Yes 5mg Take 5 mg by mouth daily. [facility] clopidogreL 75 mg tablet 205 00:00: 00 Yes 75mg Take 75 mg by mouth daily. [facility] Immunizations Ordered Immunization Name Filled Immunization Name Date Status Comments Source Flu Injectable MDCK Quadrivalent 2021-12-24 00:00:00 Completed [facility] SARS-COV-2 COVID-19 PFIZER VACCINE 2021-02-12 00:00:00 Completed [facility] SARS-COV-2 COVID-19 PFIZER VACCINE 2021-02-12 00:00:00 Completed [facility] Influenza Virus Vaccine 2021-01-08 00:00:00 Completed [facility] Influenza Virus Vaccine 2021-01-08 00:00:00 Completed [facility] Flu Injectable MDCK Quadrivalent 2021-01-08 00:00:00 Completed [facility] SARS-COV-2 COVID-19 PFIZER VACCINE 2020-07-03 00:00:00 Completed [facility] SARS-COV-2 COVID-19 PFIZER VACCINE 2020-07-03 00:00:00 Completed [facility] SARS-COV-2 COVID-19 PFIZER VACCINE 2020-06-12 00:00:00 Completed [facility] SARS-COV-2 COVID-19 PFIZER VACCINE 2020-06-12 00:00:00 Completed [facility] Zoster Vaccine Recombinant 2020-03-28 00:00:00 Completed [facility] Zoster Vaccine Recombinant 2020-03-28 00:00:00 Completed [facility] Zoster Vaccine Recombinant 2020-01-04 00:00:00 Completed [facility] Zoster Vaccine Recombinant 2020-01-04 00:00:00 Completed [facility] Influenza Virus Vaccine 2019-12-04 00:00:00 Completed [facility] Zoster Vaccine Recombinant 2019-12-04 00:00:00 Completed [facility] Influenza Virus Vaccine 2019-12-04 00:00:00 Completed [facility] Zoster Vaccine Recombinant 2019-12-04 00:00:00 Completed [facility] TDAP 2018-03-05 00:00:00 Completed [facility] TDAP 2018-03-05 00:00:00 Completed [facility] SARS-COV-2 COVID-19 PFIZER VACCINE Unknown Completed [facility] Influenza Virus Vaccine Unknown Completed [facility] Zoster Vaccine Recombinant Unknown Completed [facility] TDAP Unknown Completed [facility] Flu Injectable MDCK Quadrivalent Unknown Completed [facility] Vital Signs Vital Name Observation Time Observation Value Comments S ource Systolic blood pressure 2023-05-03 14:50:00 132 mm[Hg] Evette ybo ld - External Diastolic blood pressure 2023-05-03 14:50:00 74 mm[Hg] Evette Gutierrezybo ld - External Heart rate 2023-05-03 14:50:00 68 /min Kel y Seybold - External Body temperature 2023-05-03 14:50:00 36.67 Meli Evette Gutierrezybold - External Respiratory rate 2023-05-03 14:50:00 18 /min Evette Gutierrezybold - External Body height 2023-05-03 14:50:00 167.6 cm Bridget ey Seybold - External Body weight 2023-05-03 14:50:00 74.39 kg Bridget farley Seybold - External BMI 2023-05-03 14:50:00 26.47 kg/m2 Bridget farley Seybold - External Oxygen saturation in Arterial blood by Pulse oximetry 2023-05-03 14:50:00 97 /min Evette Dumonto ld - External Systolic blood pressure 2023-01-11 16:06:00 139 mm[Hg] [facility] Diastolic blood pressure 2023-01-11 16:06:00 69 mm[Hg] [facility] Heart rate 2023-01-11 16:06:00 93 /min Be[facility] Body temperature 2023-01-11 16:06:00 37.22 Meli [facility] Body height 2023-01-11 16:06:00 167.6 cm [facility] Body weight 2023-01-11 16:06:00 74.526 kg [facility] BMI 2023-01-11 16:06:00 26.52 kg/m2 [facility] Oxygen saturation in Arterial blood by Pulse oximetry 2023-01-11 16:06:00 97 /min [facility] Systolic blood pressure 2022-03-09 22:51:00 167 mm[Hg] [facility] Diastolic blood pressure 2022-03-09 22:51:00 83 mm[Hg] [facility] Heart rate 2022-03-09 22:41:00 96 /min Unive [facility] Body temperature 2022-03-09 22:41:00 37.22 Meli [facility] Body height 2022-03-09 22:41:00 167.6 cm [facility] Body weight 2022-03-09 22:41:00 77.021 kg [facility] BMI 2022-03-09 22:41:00 27.41 kg/m2 [facility] Oxygen saturation in Arterial blood by Pulse oximetry 2022-03-09 22:41:00 96 /min [facility] Systolic blood pressure 2021-07-29 13:18:00 156 mm[Hg] [facility] Diastolic blood pressure 2021-07-29 13:18:00 76 mm[Hg] [facility] Heart rate 2021-07-29 13:17:00 64 /min [facility] Body height 2021-07-29 13:17:00 167.6 cm [facility] Body weight 2021-07-29 13:17:00 78.472 kg [facility] BMI 2021-07-29 13:17:00 27.92 kg/m2 [facility] Oxygen saturation in Arterial blood by Pulse oximetry 2021-07-29 13:17:00 98 /min [facility] Procedures Procedure Date / Time Performed Performing Clinicia n Source POCT SARS-COV-2 ANTIGEN (BINAX NOW) 2023-01-11 16:31:00 Roslyn Garcia [facility] POCT MOLECULAR FLU 2023-01-11 16:17:00 Roslyn Garcia [facility] POCT URINALYSIS 2021-07-29 00:00:00 Jony Costa [facility] Encounters Start Date/Time End Date/Time Encounter Type Admission Type Attending [facility] Care Department Encounter ID Source 2024-02-13 09:30:00 2024-02-13 09:30:00 Outpatient GAGAN RODGERSHEL EVETTE SANTORO [id number] Evette [facility] 2024-02-11 00:00:00 2024-02-11 00:00:00 Outpatient NATALIIA STEPHENNEIL SANTORO [id number] Evette [facility] 2023-11-02 16:30:00 2023-11-02 16:30:00 Outpatient RIKI LLOYD [id number] [facility] 2023-05-09 00:00:00 2023-05-09 00:00:00 Outpatient RIKI LLOYD [id number] [facility] 2023-05-03 09:50:00 2023-05-03 09:50:00 Outpatient LAB90 EVETTE SANTORO [id number] [facility] 2023-05-03 09:00:00 2023-05-03 09:00:00 Outpatient RIKI LLOYD [id number] [facility] 2023-05-03 00:00:00 2023-05-03 00:00:00 Outpatient RIKI LLOYD [id number] [facility] 2023-01-11 10:30:00 2023-01-11 10:34:04 Outpatient R ROSLYN GARCIA [facility] [id number] [facility] 2023-01-11 10:30:00 2023-01-11 10:34:04 [facility] 1.2.840.114 350.1.13.10 4.2.7.2.686 [id number] [facility] 2022-03-09 16:30:00 2022-03-09 17:32:34 Outpatient R ROSLYN GARCIA [facility] [id number] [facility] 2022-03-09 16:30:00 2022-03-09 17:32:34 Office Visit Roslyn Garcia [facility] 1..840.114 350.1.13.10 4.2.7.2.686 [id number] [facility] 2021-07-29 08:45:00 2021-07-29 09:00:00 [facility] Visit Lab, [place] Jony [facility] 1..840.114 350.1.13.10 4.2.7.2.686 [id number] [facility] 2021-07-29 08:00:00 2021-07-29 08:53:29 Outpatient R JONY COSTA [facility] [id number] [facility] 2021-07-29 08:00:00 2021-07-29 08:53:29 Office Visit NolanJony benoit [facility] 1..840.114 350.1.13.10 4.2.7.2.686 [id number] [facility] 2021-07-29 08:00:00 2021-07-29 08:53:29 Outpatient R JONY COSTA [facility] [id number] [facility] 2021-07-29 00:00:00 2021-07-29 00:00:00 Orders Only Doctor Unassigned, [place] [facility] 1.2.840.114 350.1.13.10 4.2.7.2.686 [id number] [facility] 2021-06-29 00:00:00 2021-06-29 00:00:00 Orders Only Doctor Unassigned, [place] [facility] 1.840.114 350.1.13.10 4.2.7.2.686 [id number] [facility] 2021-06-17 00:00:00 2021-06-17 00:00:00 Pre Visit Outreach Pauly Dozier 1..840.114 350.1.13.10 4.2.7.2.686 [id number] [facility] 2021-01-20 00:00:00 2021-01-20 00:00:00 [facility]phone [facility] 1..840.114 350.1.13.10 4.2.7.2.686 [id number] [facility] 2020-08-05 08:15:00 2020-08-05 08:15:00 Outpatient CASSIE UP [facility] [id number] [facility] 2020-07-08 08:00:00 2020-07-08 08:00:00 Outpatient CLAUDIA RAMÍREZ [facility] [id number] [facility] 2020-07-06 14:30:00 2020-07-06 14:30:00 Outpatient HAYLEY RAMÍREZEMELINA [facility] [id number] [facility] 2020-07-03 10:35:00 2020-07-03 10:19:26 Outpatient CECY MORILLO [facility] [id number] [facility] 2020-06-12 10:55:00 2020-06-12 10:56:43 Outpatient JAHAIRA HEREDIA [facility] [id number] [facility] Results Test Description Test Time Test Comments Results Result Co mments [facility]2023-01-11 16:33:00* Test Item Value Reference Range Interpretation Comme nts POCT SARS-COV-2 ANTIGEN (thom t code = 38587-0) Not Detected Not Detected On board controls acceptable with C Line (test code = 3574) Yes [facility] SARS-COV-2 ANTIGEN (BINAX NOW)2023-01-11 16:33:00* Test Item Value Reference Range Interpretation Comme nts POCT SARS-COV-2 ANTIGEN (thom t code = 99311-5) Not Detected Not Detected On board controls acceptable with C Line (test code = 3574) Yes [facility] MOLECULAR [id number] 16:28:57* Test Item Value Reference Range Interpretation Comme nts POCT Molecular FluA (test co de = 34900-3) Negative Negative POCT Molecular FluB (test co de = 80965-0) Negative Negative Lab Interpretation (test cod e = 19440-8) Normal [facility] MOLECULAR [id number] 16:28:57* Test Item Value Reference Range Interpretation Comme nts POCT Molecular FluA (test co de = 33611-0) Negative Negative POCT Molecular FluB (test co de = 67845-6) Negative Negative Lab Interpretation (test cod e = 76667-3) Normal [facility] MOLECULAR [id number] 16:28:57* Test Item Value Reference Range Interpretation Comme nts POCT Molecular FluA (test co de = 78567-0) Negative Negative POCT Molecular FluB (test co de = 06773-6) Negative Negative Lab Interpretation (test cod e = 40131-0) Normal [facility] URINALYSIS W SPECIFIC [id number] 14:58:00* Test Item Value Reference Range Interpretation [...] clear Lab Interpretation (test cod e = 82766-6) [facility] SPECIFIC [id number] 14:58:00* Test Item Value Reference Range Interpretation [...] clear Lab Interpretation (test cod e = 69226-0) Abnormal [facility] Notes Date/Time Note Provider Source 2023-05-03 08:57:25 Chief Complaint Patient presents with Physical Lab work Lauren Anna [facility]
[2024-04-29] MEDS ORDERED: MORPHINE 4 MG/ML SYR ONE ×2 (01:39→03:51)
[2024-04-29] MEDS ORDERED: NA CHLORIDE 0.9% 1,000 ML ONE (01:39)
[2024-04-29] MEDS ORDERED: ONDANSETRON 4 MG/2 ML VIAL ONE ×3 (01:39→14:24)
[2024-04-29 01:50] LABS: Absolute Basophils 0.1 K/uL (0-0.5); Absolute Eosinophils 0.3 K/uL (0-0.5); Absolute Lymphocytes (CBC) 1.1 K/uL (0.7-4.9); Absolute Monocytes 0.8 K/uL (0.1-1.3); Absolute Neutrophil 8.7 K/uL (1.8-8.0); Basophils % 0.5 % (0-1.3); Eosinophils % 2.7 % (0-4.4); Hematocrit 40.7 % (39.6-49.0); Hemoglobin 13.8 g/dL (13.6-17.9); Lymphocytes % 10.4 % (15.3-44.8); MCH 31.9 pg (27.0-35.0); MCHC 33.9 g/dL (32.0-36.0); MPV 8.5 fL (7.6-11.3); Monocytes % 7.4 % (3.3-12.3); Nucleated Red Blood Cells % 0.1 % (0-0); Platelets 266 thou/uL (152-406); RBC Red Blood Cell Count 4.33 M/uL (4.33-5.43); Red Cell Distribution Width 12.7 % (12.1-15.2)
[2024-04-29 01:51] LABS: Specific Gravity 1.015 (1.005-1.030); Sqamous Epithelial <5 /HPF (None Seen); Urine Bacteria None Seen /HPF (<20); Urine Bilirubin NEGATIVE (Negative); Urine Blood Negative (Negative); Urine Clarity Clear (Clear); Urine Color Light-Yellow (Yellow); Urine Culture Reflex Order NOT NEEDED; Urine Glucose NEGATIVE (Negative); Urine Ketones NEGATIVE (Negative); Urine Microscopic Reflex YN ORDER UMIC; Urine Nitrite NEGATIVE (Negative); Urine Protein NEGATIVE (Negative); Urine RBC None Seen /HPF (None Seen); Urine Urobilinogen Normal (Normal); Urine WBC <5 /HPF (<5); Urine pH 6.5 (5.0-7.0)
[2024-04-29 02:08] LABS: Albumin 2.9 g/dL (3.4-5.0); Albumin/Globulin Ratio 0.7 (1.1-1.8); Anion Gap 8.8 mEq/L (5.0-15.0); Bilirubin Total 0.4 mg/dL (0.2-1.0); Potassium 3.8 mEq/L (3.5-5.1); Protein, Total 6.9 g/dL (6.4-8.2)
--- NOTE | 2024-04-29 03:24 | RAD REPORT ---
CT ABDOMEN PELVIS WITHOUT IV CONTRAST CLINICAL INDICATION: Abdominal pain COMPARISON: CT abdomen and pelvis 04/26/2024 TECHNIQUE: CT images of the abdomen and pelvis obtained without contrast. Multiplanar reformats were provided. Dose-optimization techniques such as automated exposure control, iterative reconstruction, and mA and/or kV adjustment for patient size was utilized for this examination. FINDINGS: LOWER CHEST: Dependent changes at the bilateral lung bases without pleural or pericardial effusion. I nterstitial lung disease with mild honeycombing at posterior right lower lobe. LIVER: Unremarkable. BILIARY: Unremarkable. PANCREAS: There is increasing thickening of pancreatic head with associated peripancreatic stranding and trace fluid, in keeping with worsening pancreatitis. Mild pancreatic parenchymal edema and peripancreatic stranding is seen at body and tail. No definite collection, noting limitation by nonco ntrast exam. Coarse calcifications in pancreatic head, in keeping with sequela of chronic pancreatitis. SPLEEN: Unremarkable. ADRENALS: Stable nodular thickening of bilateral adrenal glands.. KIDNEYS/URETERS: Anterior rotation of the right kidney lower moiety again seen. Stable right lower po le 3.3 cm exophytic Bosniak 1 cyst. No nephrolithiasis or hydronephrosis. Nonspecific mild perinephric stranding could be age related. STOMACH: Unremarkable. BOWEL: Mild circumferential wall thickening of the jejunum, suspicious for enteritis. No bowel obstru ction. APPENDIX: Normal. MESENTERY/PERITONEUM: No significant free fluid. No focal collection. No pneumoperitoneum. RETROPERITONEUM: No adenopathy. URINARY BLADDER: Mild urinary bladder wall thickening could be due to chronic outlet obstruction seco ndary to prostate hypertrophy. REPRODUCTIVE: Mild prostate hypertrophy. VASCULAR: No aortic aneurysm. Mild atherosclerotic calcifications of the abdominal and pelvic vascu lature. ABDOMINAL/PELVIC WALL: Unremarkable. BONES: Multilevel degenerative changes of spine. No acute findings. No compression deformity, nor ost eolytic or sclerotic lesion. IMPRESSION: 1. Worsening acute on chronic pancreatitis centered at pancreatic head. No definite collection, not ing limitation by noncontrast exam. 2. Mild circumferential wall thickening of the jejunum, suspicious for enteritis. 3. Mild urinary bladder wall thickening could be due to chronic outlet obstruction secondary to pro state hypertrophy. Correlation with urinalysis to exclude cystitis. Electronically signed by: Marisol Chandler MD 04/29/2024 03:21 AM [facility] Due to temporary technical issues with the PACS/Ambarella reporting system, reports are being celestine d by the in-house radiologist without review as a courtesy to ensure prompt reporting the interpreting radiologist is fully responsible for the content of the report. Transcribed Date/Time: 04/29/2024 3:24 AM
--- NOTE | 2024-04-29 03:28 | EDPHYS ---
Physician Documentation [facility] Name: Gray Mehta Age: 63 yrs Sex: Male : 1960 Arrival Date: 04/29/2024 Time: 01:04 Bed 6 Private MD: ED Physician Jennifer Watts HPI: 04/29 01:34 This 63 yrs old Male presents to ER via Wheelchair with complaints of Abdominal Pain. sp3 01:34 63-year-old male with history of hyperlipidemia, hypertension, [place], alcohol induced sp3 pancreatitis presents for recurrent epigastric abdominal pain after being discharged today. Patient was seen on 222 for acute on chronic nonnecrotizing pancreatitis with lipase level [address] changes consistent with the above and was admitted and discharged today with discharge lipase level of 592. Patient states he went home and had dinner and had recurrent pain, emesis and returns for further intervention. Review of systems negative for headache, chest pain, shortness of breath, fever, back pain, diarrhea, or any other signs or symptoms on ROS at this time. He denies any alcohol ingestion.. Historical: - Allergies: 01:18 Darvocet-N 100; ha1 01:18 Iodine; ha1 01:18 Tape; ha1 01:18 Vicodin; ha1 - PMHx: 01:18 High Cholesterol; Hypertension; Myocardial infarction; peptic ulcers; ha1 - PSHx: 01:18 Cardiac stents x 7; ha1 - Immunization history:: Adult Immunizations up to date. - Infectious Disease History:: Denies. - Social history:: Smoking status: unknown. ROS: 01:36 Constitutional: Negative for fever, chills, and weight loss, Eyes: Negative for injury, sp3 pain, redness, and discharge, ENT: Negative for injury, pain, and discharge, Neck: Negative for injury, pain, and swelling, Cardiovascular: Negative for chest pain, palpitations, and edema, Respiratory: Negative for shortness of breath, cough, wheezing, and pleuritic chest pain, Back: Negative for injury and pain, MS/Extremity: Negative for injury and deformity, Skin: Negative for injury, rash, and discoloration, Neuro: Negative for headache, weakness, numbness, tingling, and seizure, Psych: Negative for depression, anxiety, suicide ideation, homicidal ideation, and hallucinations, Allergy/Immunology: Negative for hives, rash, and allergies, Endocrine: Negative for neck swelling, polydipsia, polyuria, polyphagia, and marked weight changes, Hematologic/Lymphatic: Negative for swollen nodes, abnormal bleeding, and unusual bruising, 01:36 All other systems are negative, Exam: 01:36 Constitutional: This is a well developed, well nourished patient who is awake, alert, sp3 and in no acute distress. Head/Face: Normocephalic, atraumatic. Eyes: Pupils equal round and reactive to light, extra-ocular motions intact. Lids and lashes normal. Conjunctiva and sclera are non-icteric and not injected. Cornea within normal limits. Periorbital areas with no swelling, redness, or edema. ENT: Nares patent. No nasal discharge, no septal abnormalities noted. External auditory canals are clear. Oropharynx with no redness, swelling, or masses, exudates, or evidence of obstruction, uvula midline. Mucous membranes moist. Neck: Trachea midline, no thyromegaly or masses palpated, and no cervical lymphadenopathy. Supple, full range of motion without nuchal rigidity, or vertebral point tenderness. No Meningismus. Chest/axilla: Normal chest wall appearance and motion. Nontender with no deformity. No lesions are appreciated. Cardiovascular: Regular rate and rhythm with a normal S1 and S2. No gallops, murmurs, or rubs. Normal PMI, no JVD. No pulse deficits. Respiratory: Lungs have equal breath sounds bilaterally, clear to auscultation and percussion. No rales, rhonchi or wheezes noted. No increased work of breathing, no retractions or nasal flaring. Back: No spinal tenderness. No costovertebral tenderness. Full range of motion. Skin: Warm, dry with normal turgor. Normal color with no rashes, no lesions, and no evidence of cellulitis. MS/ Extremity: Pulses equal, no cyanosis. Neurovascular intact. Full, normal range of motion. Neuro: Awake and alert, GCS 15, oriented to person, place, time, and situation. Cranial nerves II-XII grossly intact. Motor strength 5/5 in all extremities. Sensory grossly intact. Cerebellar exam normal. Normal gait. Psych: Awake, alert, with orientation to person, place and time. Behavior, mood, and affect are within normal limits. 01:36 Abdomen/GI: Epigastric pain to palpation without peritoneal signs, rebound or guarding., Vital Signs: 01:16 BP 183 / 88; Pulse 75; Resp 17; Temp 98.2(O); Pulse Ox 98% on R/A; Weight 73.03 kg; ha1 Height 5 ft. 6 in. ; 01:30 BP 178 / 92; Pulse 72; Resp 18; Pulse Ox 98% on R/A; al5 02:00 BP 155 / 82; Pulse 71; Resp 16; Pulse Ox 95% on R/A; al5 02:30 BP 148 / 78; Pulse 71; Resp 16; Pulse Ox 95% on R/A; al5 03:00 BP 145 / 74; Pulse 72; Resp 16; Pulse Ox 96% on R/A; al5 03:30 BP 166 / 82; Pulse 67; Resp 16; Pulse Ox 97% on R/A; al5 01:16 Body Mass Index 25.99 (73.03 kg, 167.64 cm) [facility] MDM: 01:12 Medical Screening Exam initiated sp3 01:36 Data reviewed: vital signs, nurses notes, old medical records, lab test result(s), sp3 radiologic studies. ED course: 63-year-old male with PMH above now with recurrent abdominal pain after being discharged earlier today. Will reorder CT scan of the abdomen pelvis, general labs and administer normal saline and morphine/Zofran IV for symptomatic control. Differential diagnosis includes recurrent pancreatitis, gastritis, other colitis, other intra-abdominal pathology, among others. I am not highly suspicious of sepsis, shock, aortic pathology, or any other signs or symptoms on ROS at this time.. 04/29 01:20 Order name: CBC with Diff; Complete Time: : sp3 04/29 01:20 Order name: CMP; Complete Time: : sp3 04/29 01:20 Order name: Lipase; Complete Time: sp3 04/29 01:20 Order name: Urinalysis w/ reflexes; Complete Time: sp3 04/29 01:20 Order name: Lactate w/ 2H reflex if indic.; Complete Time: sp3 04/29 04:46 Order name: Urinalysis w/ reflexes EDMS 04/29 04:46 Order name: CBC with Automated Diff EDMS 04/29 04:46 Order name: CBC with Automated Diff EDMS 04/29 04:46 Order name: Comprehensive Metabolic Panel EDMS 04/29 04:46 Order name: Comprehensive Metabolic Panel EDMS 04/29 07:01 Order name: Lipid Profile EDMS 04/29 07:05 Order name: Hemoglobin A1c EDNC 04/29 01:46 Order name: Abdomen EDMS 04/29 01:12 Order name: Vital Signs; Complete Time: 01:51 sp3 04/29 01:20 Order name: IV Saline Lock; Complete Time: 01:44 sp3 04/29 01:20 Order name: Labs collected and sent; Complete Time: :44 sp3 Administered Medications: 01:44 Drug: Ondansetron IVP 4 mg IVP once; over 2 minutes Route: IVP; Site: right antecubital;al5 03:47 Follow up: Response: No adverse reaction al5 01:44 Drug: morphine IVP or IV 4 mg IVP once over 4 mins Route: IVP; Infused Over: 4 mins; al5 Site: right antecubital; 03:47 Follow up: Response: Pain is decreased; Other; patient still experiencing pain al5 01:44 Drug: NS 0.9% IV 1000 ml IV at 1 bolus Per protocol; to be given as a bolus over 60 al5 minutes Route: IV; Rate: 1 bolus; Site: right antecubital; 03:47 Follow up: Response: No adverse reaction; IV Status: Completed infusion; IV Intake: al5 1000ml 03:55 Drug: morphine IVP or IV 4 mg IVP once over 4 mins Route: IVP; Infused Over: 4 mins; al5 Site: right antecubital; 06:42 Follow up: Response: No adverse reaction; Pain is decreased ha1 Disposition Summary: 04/29/24 03:27 Hospitalization Ordered Notes: Hospitalization Status: Observation sp3 Provider: Rogelio Jones sp3 Condition: Stable sp3 Problem: an acute exacerbation sp3 Symptoms: have worsened sp3 Bed/Room Type: Standard sp3 Location: Telemetry/MedSurg (observation)(04/29/24 15:40) bd Room Assignment: 225(04/29/24 15:40) bd Diagnosis - Acute on chronic pancreatitis sp3 Forms: - Medication Reconciliation Form sp3 - SBAR form sp3 - Leadership Thank You Letter sp3 Signatures: Dispatcher [employer] EDMS Lily Butler Cindy, KADI WALLIS cg Jennifer Watts MD MD sp3 Rayna Acevedo RN RN ha1 Shira Cano RN RN al5 Corrections: (The following items were deleted from the chart) 01:46 01:21 Abdomen Pelvis W Con+CT.RAD.BRZ ordered. EDMS EDMS 04:47 03:27 Telemetry/MedSurg (observation) sp3 cg 04:47 03:27 sp3 cg 15:40 04:47 BR ER HOLD cg bd 15:40 04:47 ERHOLD- cg bd
--- NOTE | 2024-04-29 03:28 | ER ---
Nurse's Notes [facility] Name: Gray Mehta Age: 63 yrs Sex: Male : 1960 Arrival Date: 04/29/2024 Time: 01:04 Bed 6 Private MD: Diagnosis: Acute on chronic pancreatitis Presentation: 04/29 01:16 Chief complaint: Patient states: mid epigastric pain , pain radiates to the back . ha1 01:16 Coronavirus screen: Client denies travel out of the [place] in the last 14 days. Ebola ha1 Screen: No symptoms or risks identified at this time. Initial Sepsis Screen: Does the patient meet any 2 criteria? No. Patient's initial sepsis screen is negative. Does the patient have a suspected source of infection? No. Patient's initial sepsis screen is negative. Risk Assessment: Do you want to hurt yourself or someone else? Patient reports no desire to harm self or others. Onset of symptoms was April 29, 2024. 01:16 Method Of Arrival: Wheelchair ha1 01:16 Acuity: CAIO 3 ha1 Triage Assessment: 01:18 General: Appears uncomfortable, Behavior is cooperative. Pain: Complains of pain in ha1 epigastric area Pain radiates to back Pain currently is 9 out of 10 on a pain scale. Neuro: Level of Consciousness is awake, alert, obeys commands, Oriented to person, place, time, situation. Cardiovascular: Capillary refill < 3 seconds Patient's skin is warm and dry. Respiratory: Airway is patent Respiratory effort is even, unlabored, Respiratory pattern is regular, symmetrical. Historical: - Allergies: 01:18 Darvocet-N 100; ha1 01:18 Iodine; ha1 01:18 Tape; ha1 01:18 Vicodin; ha1 - PMHx: 01:18 High Cholesterol; Hypertension; Myocardial infarction; peptic ulcers; ha1 - PSHx: 01:18 Cardiac stents x 7; ha1 - Immunization history:: Adult Immunizations up to date. - Infectious Disease History:: Denies. - Social history:: Smoking status: unknown. Screenin:44 [facility] ED Fall Risk Assessment (Adult) History of falling in the last 3 months, al5 including since admission No falls in past 3 months (0 pts) Confusion or Disorientation No (0 pts) Intoxicated or Sedated No (0 pts) Impaired Gait No (0 pts) Mobility Assist Device Used No (0 pt) Altered Elimination No (0 pt) Score/Fall Risk Level 0 - 2 = Low Risk Oriented to surroundings, Maintained a safe environment, Hourly rounding (assess needs \T\ fall precautionary measures) done. Abuse screen: Denies threats or abuse. Denies injuries from another. Nutritional screening: No deficits noted. Tuberculosis screening: No symptoms or risk factors identified. Assessment: 01:44 General: Appears in no apparent distress. uncomfortable, Behavior is calm, cooperative. al5 Pain: Complains of pain in back and epigastric area Pain currently is 8 out of 10 on a pain scale. Neuro: Level of Consciousness is awake, alert, obeys commands, Oriented to person, place, time, situation. Cardiovascular: Capillary refill < 3 seconds Patient's skin is warm and dry. Respiratory: Airway is patent Respiratory effort is even, unlabored, Respiratory pattern is regular, symmetrical. GI: Abdomen is flat, non-distended, Bowel sounds present X 4 quads. Abd is soft X 4 quads Abdomen is tender to palpation in epigastric area and right upper quadrant Reports upper abdominal pain. : No signs and/or symptoms were reported regarding the genitourinary system. EENT: No signs and/or symptoms were reported regarding the EENT system. Derm: Skin is intact, is healthy with good turgor, Skin is pink, warm \T\ dry. normal. Musculoskeletal: No signs and/or symptoms reported regarding the musculoskeletal system. 02:42 Reassessment: Patient appears in no apparent distress at this time. No changes from al5 previously documented assessment. Patient and/or family updated on plan of care and expected duration. Pain level reassessed. Patient is alert, oriented x 3, equal unlabored respirations, skin warm/dry/pink. pain has decreased. 03:56 Reassessment: Patient appears in no apparent distress at this time. No changes from al5 previously documented assessment. Patient and/or family updated on plan of care and expected duration. Pain level reassessed. Patient is alert, oriented x 3, equal unlabored respirations, skin warm/dry/pink. patient admitted to ER hold. Vital Signs: 01:16 BP 183 / 88; Pulse 75; Resp 17; Temp 98.2(O); Pulse Ox 98% on R/A; Weight 73.03 kg; ha1 Height 5 ft. 6 in. ; 01:30 BP 178 / 92; Pulse 72; Resp 18; Pulse Ox 98% on R/A; al5 02:00 BP 155 / 82; Pulse 71; Resp 16; Pulse Ox 95% on R/A; al5 02:30 BP 148 / 78; Pulse 71; Resp 16; Pulse Ox 95% on R/A; al5 03:00 BP 145 / 74; Pulse 72; Resp 16; Pulse Ox 96% on R/A; al5 03:30 BP 166 / 82; Pulse 67; Resp 16; Pulse Ox 97% on R/A; al5 01:16 Body Mass Index 25.99 (73.03 kg, 167.64 cm) ha1 ED Course: 01:06 Patient arrived in ED. gm2 01:12 Jennifer Watts MD is Attending Physician. sp3 01:30 Triage completed. ha1 01:40 No provider procedures requiring assistance completed. Inserted saline lock: 20 gauge al5 in right antecubital area, using aseptic technique. Blood collected. Flushed with 10 mL NS. 01:43 Arm band placed on right wrist. Patient placed in the treatment room, in view of staff al5 members, on pulse oximetry. 01:44 Shira Cano RN is Primary Nurse. al5 01:44 Patient has correct armband on for positive identification. Placed in gown. Bed in low al5 position. Call light in reach. Side rails up X2. Provided Education on: plan of care. 01:46 Abdomen In Process Unspecified. EDMS 03:27 Rogelio Jones MD is Hospitalizing Provider. sp3 03:57 Patient admitted, IV remains in place. al5 Administered Medications: 01:44 Drug: Ondansetron IVP 4 mg IVP once; over 2 minutes Route: IVP; Site: right antecubital;al5 03:47 Follow up: Response: No adverse reaction al5 01:44 Drug: morphine IVP or IV 4 mg IVP once over 4 mins Route: IVP; Infused Over: 4 mins; al5 Site: right antecubital; 03:47 Follow up: Response: Pain is decreased; Other; patient still experiencing pain al5 01:44 Drug: NS 0.9% IV 1000 ml IV at 1 bolus Per protocol; to be given as a bolus over 60 al5 minutes Route: IV; Rate: 1 bolus; Site: right antecubital; 03:47 Follow up: Response: No adverse reaction; IV Status: Completed infusion; IV Intake: al5 1000ml 03:55 Drug: morphine IVP or IV 4 mg IVP once over 4 mins Route: IVP; Infused Over: 4 mins; al5 Site: right antecubital; 06:42 Follow up: Response: No adverse reaction; Pain is decreased ha1 Medication: 03:57 VIS not applicable for this client. al5 Intake: 03:47 IV: 1000ml; Total: 1000ml. al5 Outcome: 03:27 Decision to Hospitalize by Provider. sp3 03:57 Admitted to ER Hold. Please see [facility] for further documentation. al5 03:57 Condition: stable 03:57 Instructed on the need for admit, 17:06 Patient left the ED. Signatures: Dispatcher [employer] EDMarybeth Dougherty RN RN Jennifer Watts MD MD sp3 Rayna Acevedo RN RN ha1 Jacy Sims 2 Shira Cano RN RN al5
--- NOTE | 2024-04-29 04:41 | P.HP ---
Certification for Inpatient Patient admitted to: Inpatient With expected LOS: >2 Midnights Practitioner: I am a practitioner with admitting privileges, knowledge of patient current condition, hospital course, and medical plan of care. Services: Services provided to patient in accordance with Admission requirements found in Title 42 Section 412.3 of the Code of Federal Regulations Patient History Date of Service: 04/29/24 Reason for admission: Abdominal Pain History of Present Illness: 63 yrs old Male with past medical history of hypertension, GERD, CAD status post stents, hyperlipidemia, peptic ulcers, history of pancreatitis who was just discharged from the hospital this morning after he was admitted for acute pancreatitis came back to ER with worsening of Abdominal Pain. He presents for recurrent epigastric abdominal pain after being discharged today. He was diagnosed with acute on chronic nonnecrotizing pancreatitis with elevated lipase. Patient states he went home and had dinner and had recurrent pain, emesis and returns for further intervention. Patient denies any fever or chills. No radiation to back. Pain is intermittent 10 out of 10 in severity. Denies any alcohol intake today. Patient was assessed in the ER was admitted for further management of acute pancreatitis. A repeat CT showed worsening of pancreatitis Patient is admitted for further management Allergies hydrocodone [From Vicodin] Allergy (Verified 04/29/24 04:35) Unknown iodine Allergy (Verified 04/29/24 04:35) Rash propoxyphene [From Darvocet-N 100] Allergy (Verified 04/29/24 04:35) Unknown Tape Allergy (Uncoded 08/20/15 04:40) Unknown Home Medications: Amlodipine [Norvasc*] 1 tab PO DAILY 08/20/15 Fenofibrate,Micronized [Fenofibrate] 1 tab PO BEDTIME 08/20/15 Metoprolol Succinate 1 tab PO DAILY 08/20/15 Multivit-Min/FA/Lycopen/Lutein [Centrum Silver Tablet] 1 each PO DAILY 08/20/15 Clopidogrel Bisulfate [Plavix*] 75 mg PO DAILY 04/26/24 [place]-3S/Dha/Epa/Fish Oil [Fish Oil [place]-3 Softgel] 1 each PO DAILY 04/26/24 Omeprazole Magnesium 20 mg PO DAILY 04/26/24 lisinopriL [Lisinopril] 10 mg PO DAILY 04/26/24 Atorvastatin Calcium [Lipitor] 40 mg PO BEDTIME #30 tab 04/28/24 - Past Medical/Surgical History Past Medical History: Reviewed- Non-Contributory -: HTN -: High Cholesterol Past Surgical History: Reviewed- Non-Contributory -: 7 stents in his heart -: Titanium plate in neck vertabre - Family History Family History: Reviewed- Non-Contributory - Social History Smoking Status: Current some day smoker Alcohol use: Yes CD- Drugs: No Caffeine use: Yes Review of Systems 10-point ROS is otherwise unremarkable Physical Examination - Vital Signs Temperature: 97.8 F Blood Pressure: 138/76 Pulse: 82 Respirations: 18 Pulse Ox (%): 94 - Physical Exam General: Alert, Oriented x3, Cooperative, Mild distress HEENT: Atraumatic, Normocephalic Neck: Supple, JVD not distended Respiratory: Clear to auscultation bilaterally, Normal air movement Cardiovascular: Regular rate/rhythm, Normal S1 S2 Capillary refill: <2 Seconds Gastrointestinal: W/out hepatosplenomegaly, Tenderness Musculoskeletal: No clubbing, No swelling Integumentary: No rashes Neurological: Normal speech, Normal strength at 5/5 x4 extr, Cranial nerves 3-12 intact, Normal reflexes 2+ Lymphatics: No axilla or inguinal lymphadenopathy - Studies Laboratory Data (last 24 hrs) 04/29/24 04/29/24 01:34 01:34 WBC 11.00 H Hgb 13.8 Hct 40.7 Plt Count 266 Sodium 140 Potassium 3.8 BUN 10 Creatinine 1.12 Glucose 155 H Total Bilirubin 0.4 AST 16 ALT 24 Alkaline Phosphatase 55 Lipase 625 H Assessment and Plan - Plan Acute on chronic pancreatitis Pain control Will keep n.p.o. for now Started on aggressive hydration Monitor lipase CT findings noted Hypertension Antihypertensives titrated Continue home medications and titrate as needed Hyperlipidemia Continue statin We will get a lipid panel including triglyceride level CAD Monitor closely on telemetry Patient denies any chest pain Continue home medications GERD/history of peptic ulcer Continue PPI History of alcoholism Watch closely for any withdrawals GI/DVT prophylaxis Advanced directive full code Discharge Plan: Home Plan to discharge in: 48 Hours - Advance Directives Does patient have a Living Will: No Does patient have a Durable POA for Healthcare: No - Code Status/Comfort Care Code Status: Full Code Time Spent Managing Pts Care (In Minutes): 48
[2024-04-29] MEDS ORDERED: HYDROCODONE/APAP 5/325 MG TAB PO PRN (04:44)
[2024-04-29 04:50] VITALS: BMI 25.9
[2024-04-29] MEDS: Ringers Lactate 1,000 ML IV SCH (05:44)
[2024-04-29] MEDS ORDERED: Ringers Lactate 1,000 ML IV ONE ×2 (05:54→14:24)
[2024-04-29] MEDS ORDERED: ENOXAPARIN 40 MG/0.4 ML SQ ONE (08:20)
[2024-04-29] MEDS: ENOXAPARIN 40 MG/0.4 ML SQ SCH (08:29)
[2024-04-29] MEDS ORDERED: HYDROMORPHONE HCL 1 MG/ML INJ ONE ×2 (09:20→14:24)
[2024-04-29] MEDS: HYDROMORPHONE HCL 1 MG/ML INJ IV PRN (09:26)
[2024-04-29] MEDS: ONDANSETRON 4 MG/2 ML VIAL IV PRN (09:27)
--- NOTE | 2024-04-29 13:45 | P.PN ---
Date of Service: 04/29/24 Subjective: not much change since admission last night reports had liquid diet yesterday morning prior to dc went home, ate chocolate and had chicken & rice for dinner - which worsened his pain ROS: 10 point ROS as noted above, otherwise negative Physical Exam: GEN: Alert, oriented, uncomfortable appearing CV: Regular rate and rhythm, no edema Pulm: Nonlabored respirations on room air, clear bilaterally ABD: soft, TTP in epigastric region Neuro: Normal speech, normal affect Problem List: Acute on chronic pancreatitis Hypertension Hyperlipidemia CAD GERD/Hx of peptic ulcer Hx of alcohol use Acute on chronic pancreatitis CT abdomen / pelvis (04/29): acute on chronic pancreatitis centered at pancreatic head. Mild circumferential wall thickening of the jejunum, suspicious for ent eritis. Mild urinary bladder wall thickening could be due to chronic outlet obstruction secondary to prostate hypertrophy lipase 625 on admission, LFTs normal. Urinalysis unremarkable. continue IV fluids with LR@125ml/hr pain control NPO for now daily labs TG's ok possibly alcohol related Hypertension Hyperlipidemia CAD GERD/Hx of peptic ulcer confirm home meds, restart as appropriate Hx of alcohol use monitor for withdrawal symptoms VTE: Lovenox Code: Full Dispo: Home, ~3-4 days Time Spent Managing Pts Care (In Minutes): 55
[2024-04-29] MEDS: ACETAMINOPHEN 325 MG TABLET PO PRN (17:23)
[2024-04-29 17:32] VITALS: O2SAT 97
[2024-04-30 05:22] LABS: Absolute Eosinophils 0.4 K/uL (0-0.5); Absolute Lymphocytes (CBC) 1.4 K/uL (0.7-4.9); Absolute Monocytes 0.9 K/uL (0.1-1.3); Absolute Neutrophil 7.5 K/uL (1.8-8.0); Basophils % 0.3 % (0-1.3); Eosinophils % 3.5 % (0-4.4); Hematocrit 38.2 % (39.6-49.0); Hemoglobin 12.9 g/dL (13.6-17.9); Lymphocytes % 13.4 % (15.3-44.8); MCH 32.3 pg (27.0-35.0); MCHC 33.8 g/dL (32.0-36.0); MCV 95.6 fL (80-100); MPV 8.1 fL (7.6-11.3); Monocytes % 8.8 % (3.3-12.3); Platelets 271 thou/uL (152-406); Red Cell Distribution Width 12.6 % (12.1-15.2)
[2024-04-30 05:43] LABS: Albumin 2.6 g/dL (3.4-5.0); Albumin/Globulin Ratio 0.7 (1.1-1.8); Anion Gap 9.8 mEq/L (5.0-15.0); Bilirubin Total 0.4 mg/dL (0.2-1.0); Globulin 3.5 g/dL (2.3-3.5); Magnesium 1.7 mg/dL (1.6-2.4); Potassium 3.8 mEq/L (3.5-5.1); Protein, Total 6.1 g/dL (6.4-8.2)
[2024-04-30] MEDS: MAGNESIUM SULFATE 1 gm IVPB 1 GM/100 ML BAG IV ONE (06:40)
[2024-04-30] MEDS: POTASSIUM 25 MEQ EFFERV TAB PO ONE (06:40)
--- NOTE | 2024-04-30 10:46 | P.PN ---
Date of Service: 04/30/24 Subjective: feeling better today, abdominal pain improving tolerated some liquids without issues this morning no events overnight minimal pain afebrile ROS: 10 point ROS as noted above, otherwise negative Physical Exam: GEN: Alert, oriented, uncomfortable appearing CV: Regular rate and rhythm, no edema Pulm: Nonlabored respirations on room air, clear bilaterally ABD: soft, minimal epigastric tenderness Neuro: Normal speech, normal affect Problem List: Acute on chronic pancreatitis Hypertension Hyperlipidemia CAD GERD/Hx of peptic ulcer Hx of alcohol use Acute on chronic pancreatitis CT abdomen / pelvis (04/29): acute on chronic pancreatitis centered at pancreatic head. Mild circumferential wall thickening of the jejunum, suspicious for enteritis. Mild urinary bladder wall thickening could be due to chronic outlet obstruction secondary to prostate hypertrophy lipase 625 on admission, LFTs normal. Urinalysis unremarkable. TG's ok continue IV fluids with LR@125ml/hr pain control daily labs possibly alcohol related Lipase resolved 04/30 with IVF Advance diet as tolerated. Hypertension Hyperlipidemia CAD GERD/Hx of peptic ulcer confirm home meds, restart as appropriate Hx of alcohol use monitor for withdrawal symptoms VTE: Lovenox Code: Full Dispo: Home, ~24 hrs Time Spent Managing Pts Care (In Minutes): 55
[2024-05-01] MEDS: Ringers Lactate 1,000 ML IV SCH
[2024-05-01 04:58] LABS: Albumin 2.7 g/dL (3.4-5.0); Albumin/Globulin Ratio 0.7 (1.1-1.8); Anion Gap 9.8 mEq/L (5.0-15.0); Bilirubin Total 0.4 mg/dL (0.2-1.0); Potassium 3.8 mEq/L (3.5-5.1); Protein, Total 6.7 g/dL (6.4-8.2)
[2024-05-01] MEDS: METOPROLOL XL 50 MG TAB PO SCH (09:00)
[2024-05-01] MEDS: CLOPIDOGREL 75 MG TABLET PO SCH (09:00)
[2024-05-01] MEDS: lisinopriL 10 MG TAB PO SCH (09:00)
[2024-05-01 09:29] VITALS: BP 165/78; TEMP 97.7
[2024-05-01] MEDS ORDERED: ATORVASTATIN 40 MG TAB PO SCH (21:00)
[2024-05-01] MEDS ORDERED: FENOFIBRATE 134 MG PO SCH (21:00)
--- NOTE | 2024-05-02 07:39 | P.DS ---
Admission Date: 04/29/24 Discharge Date: 05/01/24 Disposition: ROUTINE DISCHARGE Discharge Condition: GOOD Reason for Admission: Abdominal Pain Brief History of Present Illness: 63yo M, PMH: hypertension, GERD, CAD status post stents, hyperlipidemia, peptic ulcers, history of pancreatitis Patient who was just discharged from the hospital this morning after he was admitted for acute pancreatitis came back to ER with worsening of Abdominal Pain. He presents for recurrent epigastric abdominal pain after being discharged today. He was diagnosed with acute on chronic nonnecrotizing pancreatitis with elevated lipase. Patient states he went home and had dinner and had recurrent pain, emesis and returns for further intervention. Patient denies any fever or chills. No radiation to back. Pain is intermittent 10 out of 10 in severity. Denies any alcohol intake today. Patient was assessed in the ER was admitted for further management of acute pancreatitis. A repeat CT showed worsening of pancreatitis Patient is admitted for further management Hospital Course: Problem List: Acute on chronic pancreatitis Hypertension Hyperlipidemia CAD GERD/Hx of peptic ulcer Hx of alcohol use Physician discharge instructions: Patient presented with worsening abdominal pain secondary to acute pancreatitis. Lipase on admission 625. LFTs were within normal limits. Triglycerides within normal limits. CT abdomen / pelvis on admission noted appearance of acute on chronic pancreatitis centered at pancreatic head. CT also noted mild circumferential wall thickening of the jejunum, suspicious for possible enteritis. Patient was medically managed with IV hydration, pain control, bowel rest and had improvement of his symptoms. Lipase resolved (625 -> 53 -> 40). Patients diet was slowly advanced as tolerated. Patient able to tolerate soft foods on day of discharge without issues. Patient was feeling better, abdominal pain improved, and was deemed stable for discharge. Recommend low fat, soft food diet for the next few days. Can slowly ease back into regular diet over the next week. Avoid fatty/greasy foods. Consider following up with GI for further work up given recurrent pancreatitis. Unclear exact etiology. Highest risk factor would be alcohol intake. Discussed alcohol cessation. And Tobacco cessation as well can help. Medications: Tylenol #3 as needed for pain Follow up: PCP 3-5 days Physical Exam: GEN: Alert, oriented, uncomfortable appearing CV: Regular rate and rhythm, no edema Pulm: Nonlabored respirations on room air, clear bilaterally ABD: soft, minimal epigastric tenderness Neuro: Normal speech, normal affect Vital Signs/Physical Exam: Temp Pulse Resp BP Pulse Ox 97.7 F 58 20 165/78 H 96 05/01/24 08:00 05/01/24 08:00 05/01/24 08:00 05/01/24 08:00 05/01/24 08:00 Laboratory Data at Discharge: WBC 10.10 thou/uL (4.3-10.9) 04/30/24 04:50 Hgb 12.9 g/dL (13.6-17.9) L 04/30/24 04:50 Hct 38.2 % (39.6-49.0) L 04/30/24 04:50 Plt Count 271 thou/uL (152-406) 04/30/24 04:50 Sodium 139 mEq/L (136-145) 05/01/24 04:17 Potassium 3.8 mEq/L (3.5-5.1) 05/01/24 04:17 BUN 8 mg/dL (7-18) 05/01/24 04:17 Creatinine 0.86 mg/dL (0.70-1.30) 05/01/24 04:17 Glucose 123 mg/dL (74-106) H 05/01/24 04:17 Magnesium 2.0 mg/dL (1.6-2.4) 05/01/24 04:17 Total Bilirubin 0.4 mg/dL (0.2-1.0) 05/01/24 04:17 AST 16 U/L (15-37) 05/01/24 04:17 ALT 21 U/L (16-61) 05/01/24 04:17 Alkaline Phosphatase 47 U/L (45-117) 05/01/24 04:17 Triglycerides 139 mg/dL (<150) 04/29/24 01:34 Cholesterol 118 mg/dL (<200) 04/29/24 01:34 HDL Cholesterol 39 mg/dL (40-60) L 04/29/24 01:34 Cholesterol/HDL Ratio 3.03 04/29/24 01:34 Lipase 40 U/L (13-75) 05/01/24 04:17 Home Medications: Amlodipine [Norvasc*] 1 tab PO DAILY 08/20/15 Fenofibrate,Micronized [Fenofibrate] 1 tab PO BEDTIME 08/20/15 Metoprolol Succinate 1 tab PO DAILY 08/20/15 Multivit-Min/FA/Lycopen/Lutein [Centrum Silver Tablet] 1 each PO DAILY 08/20/15 Clopidogrel Bisulfate [Plavix*] 75 mg PO DAILY 04/26/24 [place]-3S/Dha/Epa/Fish Oil [Fish Oil [place]-3 Softgel] 1 each PO DAILY 04/26/24 Omeprazole Magnesium 20 mg PO DAILY 04/26/24 lisinopriL [Lisinopril] 10 mg PO DAILY 04/26/24 Atorvastatin Calcium [Lipitor] 40 mg PO BEDTIME #30 tab 04/28/24 Codeine/APAP [Tylenol W/Codeine #3 tab] 1 tab PO Q8HP PRN #10 tab 05/01/24 New Medications: Codeine/APAP [Tylenol W/Codeine #3 tab] 1 tab PO Q8HP PRN #10 tab PRN Reason: Pain Physician Discharge Instructions: Physician discharge instructions: Patient presented with worsening abdominal pain secondary to acute pancreatitis. Lipase on admission 625. LFTs were within normal limits. Triglycerides within normal limits. CT abdomen / pelvis on admission noted appearance of acute on chronic pancreatitis centered at pancreatic head. CT also noted mild circumferential wall thickening of the jejunum, suspicious for possible enteritis. Patient was medically managed with IV hydration, pain control, bowel rest and had improvement of his symptoms. Lipase resolved (625 -> 53 -> 40). Patients diet was slowly advanced as tolerated. Patient able to tolerate soft foods on day of discharge without issues. Patient was feeling better, abdominal pain improved, and was deemed stable for discharge. Recommend low fat, soft food diet for the next few days. Can slowly ease back into regular diet over the next week. Avoid fatty/greasy foods. Consider following up with GI for further work up given recurrent pancreatitis. Unclear exact etiology. Highest risk factor would be alcohol intake. Discussed alcohol cessation. And Tobacco cessation as well can help. Medications: Tylenol #3 as needed for pain Follow up: PCP 3-5 days Followup: Vishal Balbuena DO [Primary Care Provider] - 1-2 Weeks Time spent managing pt's care (in minutes): 45
== END 2024-05-01 09:34 | disposition home or self-care (01) | DRG 439 ==
LOC: ER 01:04 → ERHOLD 04:41 → 2ND 16:16
PROVIDERS: ADMIT Family Medicine; ATTEND Hospitalist
DX: K85.90 Acute pancreatitis without necrosis or infection, unspecified (principal); N13.8 Other obstructive and reflux uropathy; K86.1 Other chronic pancreatitis; K27.9 Peptic ulcer, site unspecified, unspecified as acute or chronic, without hemorrhage or perforation; K52.9 Noninfective gastroenteritis and colitis, unspecified; K21.9 Gastro-esophageal reflux disease without esophagitis; N40.1 Benign prostatic hyperplasia with lower urinary tract symptoms; I25.10 Atherosclerotic heart disease of native coronary artery without angina pectoris; I10 Essential (primary) hypertension; E78.5 Hyperlipidemia, unspecified; I25.2 Old myocardial infarction; F10.20 Alcohol dependence, uncomplicated; Z71.41 Alcohol abuse counseling and surveillance of alcoholic; F17.210 Nicotine dependence, cigarettes, uncomplicated; Z71.6 Tobacco abuse counseling; Z95.5 Presence of coronary angioplasty implant and graft; Z88.5 Allergy status to narcotic agent; Z91.041 Radiographic dye allergy status; Z91.09 Other allergy status, other than to drugs and biological substances
CPT/HCPCS: 36415; 74176; 80053; 80061; 81001; 83036; 83605; 83690; 83735; 85025; 96361; 96374; 96375; 99285; J1171; J1650; J2405; J3475; J7030; J7120

== ENCOUNTER 2024-06-29 15:26 | Inpatient (IN) | payer BC ==
--- OUTSIDE RECORDS SUMMARY | 2024-06-29 15:30 | XMS REPORT | Continuity of Care Document ---
Author Name Unknown Address [address] [place] [address] [facility] [place] Address [address] [place] [address] Care Team Providers Care Household Appliances Service Technician Name Role Phone Jony Dee Primary Care Physician + [phone] JADA WALLER Attending Clinician Unavailable MARIA ESTHER Attending Clinician Unavailable ILAN FISHER Attending Clinician Unavailable LAB90 Attending Clinician Unavailable KARI RODGERS Attending Clinician Unavailable JUSTICE WILLIAM Attending Clinician Unavail able RIKI LLOYD Attending Clinician Unavailab ROSLYN Caldera Attending Clinician Unavailable Roslyn Mancuso Attending Clinician + [phone] Lab, Ang - Db Attending Clinician Unavailable Jony Dee Attending Clinician +[phone] JONY COSTA Attending Clinician Unavailable Doctor Unassigned, [place] Attending Clinician U Pauly Webster MA Attending Clinician UnavailClaudia Bates MD Attending Clinician + [phone] CASSIE DOMINGUEZ Attending Clinician Unavailable CLAUDIA LIU Attending Clinician UnavailCECY Garner Attending Clinician Unavail JAHAIRA Myles Attending Clinician Unavailable Payers Payer Name Policy Type Policy Number Effective Date Expirati on Date Source BCBS 2 [id number] 2023 00:00:00 [employer] OUT OF STATE [id number] 2020 00:00:00 Problems Condition Name Condition Details Condition Category Status Onset Date Resolution Date Last Treatment Date Treating Clinician Comments Source 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) Disease Active 3-03 00:00: 00 Evette Seybold - Externa l Well adult exam Well adult exam Disease Active 00:00: 00 Evette Seybold - [...] reflux disease) Disease Active 00:00: 00 Evette Seybold - Externa l Hx of heart artery stent Hx of heart artery stent Disease Active 00:00: 00 Evette Seybold - Externa l Skin cancer Skin cancer Disease Active 00:00: 00 Evette Seybold - Externa l Hx of colonic polyp Hx of colonic polyp Disease Active 00:00: 00 Evette Seybold - Externa l [facility] (current) use of antithromb otics/anti platelets [facility]FP (current) use of antithromb otics/anti platelets Disease Active 00:00: 00 Evette Seybold - Externa l Screening for colorectal cancer Screening for colorectal cancer Disease Active 07-29 00:00: 00 [facility] Prediabete s Prediabete s Disease Active 07-14 00:00: 00 [facility] Coronary artery disease Coronary artery disease Disease Active 07-06 00:00: 00 [facility] S/P coronary artery stent placement S/P coronary artery stent placement Disease Active 07-06 00:00: 00 Overview: Formattin g of this note might be different from the original. At least 7 stents per the patient [facility] Essential hypertensi on Essential hypertensi on Disease Active 07-06 00:00: 00 [facility] Mixed hyperlipid emia Mixed hyperlipid emia Disease Active 07-06 00:00: 00 [facility] GERD (gastroeso phageal reflux disease) GERD (gastroeso phageal reflux disease) Disease Active 07-06 00:00: 00 [facility] History of blood transfusio n History of blood transfusio n Disease Active 07-06 00:00: 00 [facility] Allergies, Adverse Reactions, Alerts Allergy Name Allergy Type Status Severity Reaction(s) Onset Date Inactive Date Treating Clinician Comments Source Hydrocod one Propensi ty to adverse reaction s Active 2- 00:00: 00 Other Reaction( s): Unknown Evette Seybold - Externa l Iodine Propensi ty to adverse reaction s Active 2- 00:00: 00 Other Reaction( s): Rash Evette Seybold - Externa l Propoxyp hene Propensi ty to adverse reaction s Active 2- 00:00: 00 Other Reaction( s): Unknown Evette Seybold - Externa l Skin Adhesive s Propensi ty to adverse reaction s Active Rash 2- 00:00: 00 Evette Seybold - Externa l Iodine And Iodide Containi ng Products Propensi ty to adverse reaction s Active Itching 07-06 00:00: 00 [facility] ADHESIVE TAPE-TAMARA ICONES DRUG Active Rash 0 5-04 00:00: 00 [facility] IODINE AND IODIDE CONTAINI NG PRODUCTS Drug Class Active ITCHING 0 5-04 00:00: 00 [facility] PROPOXYP HENE N-ACETAM INOPHEN DRUG Active N/V 0 5-04 00:00: 00 [facility] HYDROCOD ONE-ACET AMINOPHE N DRUG Active N/V 0 -04 00:00: 00 [facility] Iodine And Iodide Containi ng Products Propensi ty to adverse reaction s Active Itching 0 -04 00:00: 00 [facility] Adhesive Tape-Tamara icones Propensi ty to adverse reaction s Active Rash 0 07-06 00:00: 00 [facility] Propoxyp hene N-Acetam inophen Propensi ty to adverse reaction s Active Nausea and/or Vomiting 0 -04 00:00: 00 [facility] Hydrocod one-Acet aminophe n Propensi ty to adverse reaction s Active Nausea and Vomiting 0 -04 00:00: 00 Evette Ching - Externa l Social History Social Habit Start Date Stop Date Quantity Comments Source History of tobacco use 1972-08-09 00:00:00 Cigarette Smoker Evette Ching - External History SDOH Alcohol Frequency [facility] History SDOH Alcohol Std Drinks [facility] History SDOH Alcohol Binge [facility] Sexual orientation Wale Ching - External Cigarettes smoked current (pack per day) - Reported 2024-05-05 00:00:00 2024-05-05 00:00:00 Evette Ching - External History of Social function 2024-05-05 00:00:00 2024-05-05 00:00:00 Evette Ching - External Cigarette pack-years 2024-05-05 00:00:00 2024-05-05 00:00:00 Evette Ching - External Alcoholic beverage intake 2024-05-05 00:00:00 2024-05-05 00:00:00 Ex-drinker (finding) Evette Ching - External Alcohol intake 2023-05-03 00:00:00 2023-05-03 00:00:00 Evette Ching - External Tobacco Comment 2023-05-03 00:00:00 2023-05-03 00:00:00 8-9 cigarettes a day Evette Ching - External Alcohol Comment 2023-05-03 00:00:00 2023-05-03 00:00:00 3-4 beers nightly Evette Gutierrez External Exposure to SARS-CoV-2 (event) 2022-02-27 00:00:00 2022-03-09 16:26:00 Not sure [facility] Tobacco use and exposure 2022-03-09 00:00:00 2022-03-09 00:00:00 Smokeless tobacco non-user [facility] Sex 2012-03-20 19:37:39 2012-03-20 19:37:39 Male (finding) Evette Ching - External Sex assigned at 1960 00:00:00 1960 00:00:00 Evette Ching - External Smoking Status Start Date Stop Date Source Smokes tobacco daily 2024-05-05 00:00:00 Evette Ching - External Medications Ordered Medication Name Filled Medication Name Start Date Stop Date Current Medication? Ordering Clinician Indication Dosage Frequency Signature (SIG) Comments Components Source [place]-3 Fatty Acids ([place]-3 Fish Oil) 1200 MG oral Capsule 05-05 14:47: 15 05-05 00:00 :00 No [id number] QD Take by mouth daily. Evette em Multiple Vitamins-Mi nerals (CENTRUM SILVER 50+MEN OR) 05-05 14:47: 10 Yes QD Take by mouth daily. Evette em Aspirin 81 MG oral Capsule 05-05 14:46: 56 Yes 1{tbl} Q.[id number] 3D Take 1 tablet by mouth 3 times daily. Evette Jenkinsa manav Acetaminoph en-Codeine 300-30 MG oral Tablet 05-01 00:00: 00 Yes 1{tbl} Q.[id number] 3D Take 1 tablet by mouth every 8 hours as needed for pain. Evette em Atorvastati n Calcium 40 MG oral Tablet 2-24 00:00: 00 Yes 40mg Take 1 tablet (40 mg total) by mouth. Evette em [place]-3 Fatty Acids (FISH OIL CONCENTRATE OR) - 00:00: 00 Yes Take by mouth. Evette em Clopidogrel Bisulfate (Plavix) 75 MG oral Tablet 04-26 00:00: 00 05-05 00:00 :00 No 75mg Take 1 tablet (75 mg total) by mouth. Evette em Omeprazole Magnesium 2.5 MG oral Pack 04-26 00:00: 00 05-05 00:00 :00 No 20mg Take 20 mg by mouth. Evette em Tol[place] 4 % apply externally Cream 04-10 00:00: 00 Yes Apply thin layer to affected areas on ears and scalp daily for 4 weeks. WASH HANDS AFTER USE. Evette em Simvastatin 80 MG oral Tablet - 00:00: 00 Yes 80mg QD Take 1 tablet (80 mg total) by mouth nightly. Evette em Aspirin 81 MG oral Capsule 09:29: 09 Yes 1{tbl} Take 1 tablet by mouth 3 times daily. Evette em Multiple Vitamins-Mi nerals (CENTRUM SILVER 50+MEN OR) 08:57: 20 Yes Take by mouth daily. Evette em [place]-3 Fatty Acids ([place]-3 Fish Oil) 1200 MG oral Capsule 08:57: 20 Yes [id number] Take by mouth daily. Evette em Clopidogrel Bisulfate (PLAVIX) 75 MG oral Tablet 2-16 00:00: 00 Yes [id number] 75mg QD Take 1 tablet (75 mg total) by mouth daily. Evette em Amlodipine Besylate (NORVASC) 5 MG oral Tablet 2-16 00:00: 00 Yes [id number] 5mg QD Take 1 tablet (5 mg total) by mouth daily. Evette em Omeprazole 20 MG oral Delayed Release Capsule 2-10 00:00: 00 Yes 20mg QD Take 1 capsule (20 mg total) by mouth daily. Evette em Fenofibrate 134 MG oral Capsule 1-17 00:00: 00 Yes [id number] TAKE ONE (1) CAPSULE BY MOUTH EVERY DAY WITH FOOD. Evette em Metoprolol Tartrate (LOPRESSOR) 50 MG oral Tablet 2022-03-15 00:00: 00 Yes [id number] TAKE ONE (1) TABLET BY MOUTH TWICE DAILY WITH MEALS. Evette em Lisinopril 10 MG oral Tablet 2022-03- 00:00: 00 Yes [id number] 10mg QD Take 1 tablet (10 mg total) by mouth daily. Evette em azithromyci n 250 mg tablet 2022-03 00:00: 00 Yes [id number] Take 500 mg PO day 1, then 250 mg PO days 2 to 5 [facility] benzonatate (TESSALON PERLES) 100 mg capsule 2022-03 00:00: 00 Yes [id number] 100mg Take 1 capsule by mouth 3 (three) times daily as needed for Cough. [facility] albuterol 90 mcg/actuati on inhaler 2022-03 00:00: 00 Yes [id number] 2{puff} Inhale 2 Puffs every 6 (six) hours as needed for Wheezing. [facility] Azelastine HCl 0.1 % nasal Solution 2022-03 00:00: 00 Yes [id number] 1{spray } Q.5D 1 spray by nasal route 2 times daily. Evette em benzonatate (TESSALON PERLES) 100 mg capsule - 00:00: 00 01-11 00:00 :00 No [id number] 100mg Take 1 capsule by mouth every 8 (eight) hours as needed for Cough. [facility] azithromyci n 250 mg tablet -05 00:00: 00 01-11 00:00 :00 No [id number] 250mg Take 1 tablet by mouth in the morning. [facility] [place]-3-DHA -EPA-Fish Oil (FISH OIL) 1,200 (144-216) mg Cap 07-06 14:58: 42 Yes Take by mouth daily. [facility] folic acid/multiv it-min/lute in (CENTRUM SILVER ORAL) 07-06 14:58: 42 Yes Take by mouth daily. [facility] aspirin E.C. 325 mg EC tablet 07-06 14:58: 42 Yes 325mg Take 325 mg by mouth daily. [facility] [place]-3-DHA -EPA-Fish Oil (FISH OIL) 1,200 (144-216) mg Cap 07-06 14:58: 42 Yes Take by mouth daily. [facility] clobetasoL 0.05 % ointment 07-06 00:00: 00 Yes [id number] Apply to area(s) 2 (two) times daily. [facility] simvastatin 80 mg tablet 06-28 00:00: 00 Yes 80mg Take 80 mg by mouth daily. [facility] omeprazole 20 mg capsule 06-27 00:00: 00 Yes 20mg Take 20 mg by mouth daily. [facility] fenofibrate micronized 134 mg capsule 06-08 00:00: 00 Yes TAKE 1 CAPSULE BY MOUTH EVERY DAY WITH FOOD [facility] metoprolol tartrate 50 mg tablet -15 00:00: 00 Yes 50mg Take 50 mg by mouth 2 (two) times daily with meals. [facility] amLODIPine 5 mg tablet -08 00:00: 00 Yes 5mg Take 5 mg by mouth daily. [facility] clopidogreL 75 mg tablet 2-05 00:00: 00 Yes 75mg Take 75 mg by mouth daily. [facility] Immunizations Ordered Immunization Name Filled Immunization Name Date Status Comments Source Flu Injectable MDCK Quadrivalent 2021-12-24 00:00:00 Completed [facility] SARS-COV-2 COVID-19 PFIZER VACCINE 2021-02-12 00:00:00 Completed [facility] SARS-COV-2 COVID-19 PFIZER VACCINE 2021-02-12 00:00:00 Completed [facility] Influenza Virus Vaccine 2021-01-08 00:00:00 Completed [facility] Influenza Virus Vaccine 2021-01-08 00:00:00 Completed [facility] Flu Injectable MDCK Quadrivalent 2021-01-08 00:00:00 Completed [facility] SARS-COV-2 COVID-19 PFIZER VACCINE 2020-07-03 00:00:00 Completed [facility] SARS-COV-2 COVID-19 PFIZER VACCINE 2020-07-03 00:00:00 Completed [facility] SARS-COV-2 COVID-19 PFIZER VACCINE 2020-06-12 00:00:00 Completed [facility] SARS-COV-2 COVID-19 PFIZER VACCINE 2020-06-12 00:00:00 Completed [facility] Zoster Vaccine Recombinant 2020-03-28 00:00:00 Completed [facility] Zoster Vaccine Recombinant 2020-03-28 00:00:00 Completed [facility] Zoster Vaccine Recombinant 2020-01-04 00:00:00 Completed [facility] Zoster Vaccine Recombinant 2020-01-04 00:00:00 Completed [facility] Influenza Virus Vaccine 2019-12-04 00:00:00 Completed [facility] Zoster Vaccine Recombinant 2019-12-04 00:00:00 Completed [facility] Influenza Virus Vaccine 2019-12-04 00:00:00 Completed [facility] Zoster Vaccine Recombinant 2019-12-04 00:00:00 Completed [facility] TDAP 2018-03-05 00:00:00 Completed [facility] TDAP 2018-03-05 00:00:00 Completed [facility] Influenza, Injectable, Mdck, Quadrivalent With Preservative Unknown Completed Evette Gutierrez External Influenza Virus Vaccine, Unspecified Formulation Unknown Completed Evette Seybold - External Influenza Virus Vaccine, No Preserv, age 6 months and up Unknown Completed Evette Ching - External Tdap- (Boostrix, Adacel) Unknown Completed Evette Ching - External Shingles IM (Shingrix) Unknown Completed Evette Ching - External Influenza MDCK TRIVALNET Unknown Completed Evette Ching - External Covid-19 Vaccine (PagPop), Mrna-lnp, Surendra Protein, Pf, 30mcg/0.3ml,IM Unknown Completed Evette Coelho d - External SARS-COV-2 COVID-19 PFIZER VACCINE Unknown Completed [facility] Influenza Virus Vaccine Unknown Completed [facility] Zoster Vaccine Recombinant Unknown Completed [facility] TDAP Unknown Completed [facility] Flu Injectable MDCK Quadrivalent Unknown Completed [facility] Vital Signs Vital Name Observation Time Observation Value Comments S ource Systolic blood pressure 2024-05-05 20:39:00 120 mm[Hg] Evette Seybo ld - External Diastolic blood pressure 2024-05-05 20:39:00 70 mm[Hg] Evette Seybo ld - External Heart rate 2024-05-05 20:39:00 59 /min Ave Ching - External Body temperature 2024-05-05 20:39:00 35.56 Meli Evette Juliaold - External Respiratory rate 2024-05-05 20:39:00 14 /min Evette Juliaold - External Body height 2024-05-05 20:39:00 165.1 cm Bridget farley Seybold - External Body weight 2024-05-05 20:39:00 72.576 kg Bridget farley Seybold - External BMI 2024-05-05 20:39:00 26.63 kg/m2 Brdiget farley ybold - External Oxygen saturation in Arterial blood by Pulse oximetry 2024-05-05 20:39:00 96 /min Evette gaurango ld - External Systolic blood pressure 2023-05-03 14:50:00 132 mm[Hg] Evette ybo ld - External Diastolic blood pressure 2023-05-03 14:50:00 74 mm[Hg] Evette Seybo ld - External Heart rate 2023-05-03 14:50:00 68 /min Jacobse y Seybold - External Body temperature 2023-05-03 14:50:00 36.67 Meli Evette Ching - External Respiratory rate 2023-05-03 14:50:00 18 /min Evette Ching - External Body height 2023-05-03 14:50:00 167.6 cm Bridget Ching - External Body weight 2023-05-03 14:50:00 74.39 kg Bridget farley Seybold - External BMI 2023-05-03 14:50:00 26.47 kg/m2 Bridget Ching - External Oxygen saturation in Arterial blood by Pulse oximetry 2023-05-03 14:50:00 97 /min Evette Noble ld - External Systolic blood pressure 2023-01-11 16:06:00 139 mm[Hg] [facility] Diastolic blood pressure 2023-01-11 16:06:00 69 mm[Hg] [facility] Heart rate 2023-01-11 16:06:00 93 /min [facility] Body temperature 2023-01-11 16:06:00 37.22 Meli [facility] Body height 2023-01-11 16:06:00 167.6 cm [facility] Body weight 2023-01-11 16:06:00 74.526 kg [facility] BMI 2023-01-11 16:06:00 26.52 kg/m2 [facility] Oxygen saturation in Arterial blood by Pulse oximetry 2023-01-11 16:06:00 97 /min [facility] Systolic blood pressure 2022-03-09 22:51:00 167 mm[Hg] [facility] Diastolic blood pressure 2022-03-09 22:51:00 83 mm[Hg] [facility] Heart rate 2022-03-09 22:41:00 96 /min [facility] Body temperature 2022-03-09 22:41:00 37.22 Meli [facility] Body height 2022-03-09 22:41:00 167.6 cm [facility] Body weight 2022-03-09 22:41:00 77.021 kg [facility] BMI 2022-03-09 22:41:00 27.41 kg/m2 [facility] Oxygen saturation in Arterial blood by Pulse oximetry 2022-03-09 22:41:00 96 /min [facility] Systolic blood pressure 2021-07-29 13:18:00 156 mm[Hg] [facility] Diastolic blood pressure 2021-07-29 13:18:00 76 mm[Hg] [facility] Heart rate 2021-07-29 13:17:00 64 /[facility] Body height 2021-07-29 13:17:00 167.6 cm [facility] Body weight 2021-07-29 13:17:00 78.472 kg [facility] BMI 2021-07-29 13:17:00 27.92 kg/m2 [facility] Oxygen saturation in Arterial blood by Pulse oximetry 2021-07-29 13:17:00 98 /min [facility] Procedures Procedure Date / Time Performed Performing Clinicia n Source POCT SARS-COV-2 ANTIGEN (BINAX NOW) 2023-01-11 16:31:00 Roslyn Argueta [facility] POCT MOLECULAR FLU 2023-01-11 16:17:00 Roslyn Argueta [facility] POCT URINALYSIS 2021-07-29 00:00:00 Jony Costa [facility] Encounters Start Date/Time End Date/Time Encounter Type Admission Type Attending [facility] Care Facility Care Department Encounter ID Source 2024-08-06 09:00:00 2024-08-06 09:00:00 Outpatient JADA WALLER [id number] Evette Ching 2024-05-09 00:00:00 2024-05-09 00:00:00 Outpatient MARIA ESTHER SANTORO [id number] Evette Ching 2024-05-07 00:00:00 2024-05-07 00:00:00 Outpatient ILAN FISHER [id number] Evette Ching 2024-05-05 15:45:00 2024-05-05 15:45:00 Outpatient LAB90 EVETTE SANTORO [id number] [facility] 2024-05-05 15:00:00 2024-05-05 15:00:00 Outpatient ILAN FISHER EVETTE SANTORO [id number] [facility] 2024-02-13 09:30:00 2024-02-13 09:30:00 Outpatient KARI RODGERS EVETTE SANTORO [id number] [facility] 2024-02-11 00:00:00 2024-02-11 00:00:00 Outpatient JUSTICE WILLIAM EVETTE SANTORO [id number] [facility] 2023-11-02 16:30:00 2023-11-02 16:30:00 Outpatient RIKI LLOYD EVETTE SANTORO [id number] Evette [facility] 2023-05-09 00:00:00 2023-05-09 00:00:00 Outpatient RIKI LLOYD EVETTE SANTORO [id number] [facility] 2023-05-03 09:50:00 2023-05-03 09:50:00 Outpatient NEEMA EVETTE SANTORO [id number] [facility] 2023-05-03 09:00:00 2023-05-03 09:00:00 Outpatient RIKI LLOYD EVETTE SANTORO [id number] [facility] 2023-05-03 00:00:00 2023-05-03 00:00:00 Outpatient RIKI LLOYD EVETTE SANTORO [id number] [facility] 2023-01-11 10:30:00 2023-01-11 10:34:04 Outpatient ROSLYN TUCKER [facility] [id number] [facility] 2023-01-11 10:30:00 2023-01-11 10:34:04 Office Visit Roslyn Argueta [facility] [id number] [id number] [id number] [facility] 2022-03-09 16:30:00 2022-03-09 17:32:34 Outpatient ROSLYN TUCKER [facility] [id number] [facility] 2022-03-09 16:30:00 2022-03-09 17:32:34 Office Visit Kendall Roslyn Colin [facility] 1.2.114 350.1.13.10 4.2.7.2.686 [id number] [facility] 2021-07-29 08:45:00 2021-07-29 09:00:00 Registry Rn Visit Lab, Savage Costa Jony [facility] 1.114 350.1.13.10 4.2.7.2.686 [id number] [facility] 2021-07-29 08:00:00 2021-07-29 08:53:29 Outpatient R JULISSA JONY [facility] [id number] [facility] 2021-07-29 08:00:00 2021-07-29 08:53:29 Office Visit Julissa Jony [facility] 1.114 350.1.13.10 4.2.7.2.686 [id number] [facility] 2021-07-29 08:00:00 2021-07-29 08:53:29 Outpatient R JULISSA JONY [facility] [id number] [facility] 2021-07-29 00:00:00 2021-07-29 00:00:00 Orders Only Doctor Unassigned, [place] [facility] 1..114 350.1.13.10 4.2.7.2.686 [id number] [facility] 2021-06-29 00:00:00 2021-06-29 00:00:00 Orders Only Doctor Unassigned, [place] [facility] 1.840.114 350.1.13.10 4.2.7.2.686 [id number] [facility] 2021-06-17 00:00:00 2021-06-17 00:00:00 Pre Visit Outreach Pauly Dozier [id number] 350.1.13.10 [id number] [id number] [facility] 2021-01-20 00:00:00 2021-01-20 00:00:00 Telephone Claudia Liu A [facility] 1..840.114 350.1.13.10 4.2.7.2.686 [id number] [facility] 2020-08-05 08:15:00 2020-08-05 08:15:00 Outpatient CASSIE UP [facility] [id number] [facility] 2020-07-08 08:00:00 2020-07-08 08:00:[address] [id number] [facility] 2020-07-06 14:30:00 2020-07-06 14:30:00 Outpatient HAYLEY RAMÍREZEMELINA [facility] [id number] [facility] 2020-07-03 10:35:00 2020-07-03 10:19:26 Outpatient CECY MORILLO [facility] [id number] [facility] 2020-06-12 10:55:00 2020-06-12 10:56:43 Outpatient JAHAIRA HEREDIA [facility] [id number] [facility] Results Test Description Test Time Test Comments Results Result Co mments Source [facility] SARS-COV-2 ANTIGEN (BINAX NOW)2023-01-11 16:33:00* Test Item Value Reference Range Interpretation Comme nts POCT SARS-COV-2 ANTIGEN (thom t code = 08212-4) Not Detected Not Detected On board controls acceptable with C Line (test code = 3574) Yes [facility] SARS-COV-2 ANTIGEN (BINAX NOW)2023-01-11 16:33:00* Test Item Value Reference Range Interpretation Comme nts POCT SARS-COV-2 ANTIGEN (thom t code = 63452-2) Not Detected Not Detected On board controls acceptable with C Line (test code = 3574) Yes [facility] MOLECULAR [id number] 16:28:57* Test Item Value Reference Range Interpretation Comme nts POCT Molecular FluA (test co de = 92819-3) Negative Negative POCT Molecular FluB (test co de = 03610-7) Negative Negative Lab Interpretation (test cod e = 45975-7) Normal [facility] MOLECULAR [id number] 16:28:57* Test Item Value Reference Range Interpretation Comme nts POCT Molecular FluA (test co de = 63067-8) Negative Negative POCT Molecular FluB (test co de = 80921-2) Negative Negative Lab Interpretation (test cod e = 91247-9) Normal [facility] MOLECULAR [id number] 16:28:57* Test Item Value Reference Range Interpretation Comme nts POCT Molecular FluA (test co de = 34335-4) Negative Negative POCT Molecular FluB (test co de = 50608-3) Negative Negative Lab Interpretation (test cod e = 49076-0) Normal [facility] URINALYSIS W SPECIFIC [id number] 14:58:00* Test Item Value Reference Range Interpretation [...] clear Lab Interpretation (test cod e = 41101-5) [facility] [id number] 14:58:00* Test Item Value Reference Range Interpretation [...] clear Lab Interpretation (test cod e = [id number]) Abnormal [facility] Notes Date/Time Note Provider Source 2024-05-05 14:47:40 Chief Complaint Patient presents with Hospital F/U Hospital follow up from [facility] on April 25, 2024 for acute pancreatitis. Suze Thompson MA [facility] 2023-05-03 08:57:25 Chief Complaint Patient presents with Physical Lab work Lauren Anna LVN [facility]
--- NOTE | 2024-06-29 16:12 | RAD REPORT ---
EXAMINATION: CT ABDOMEN AND PELVIS WITHOUT CONTRAST CLINICAL INDICATION: ABD PAIN TECHNIQUE: CT abdomen and pelvis was performed, without IV contrast, as per department protocol. Axia l, sagittal and coronal reconstructions were obtained. One or more of the following dose reduction techniques were used: Automated exposure control, adjustment of the mA and kV according to the patien t size, and iterative reconstruction. Unless otherwise specified, incidental findings do not require dedicated imaging follow-up. COMPARISON: 04/29/2024 FINDINGS: The lack of intravenous contrast limits the sensitivity of this exam for evaluation of solid visceral organs, vascular structures, and retroperitoneum. LOWER CHEST: The visualized lung bases are clear. LIVER:Normal in size and contour. No focal lesion. Grossly unremarkable gallbladder. SPLEEN: Normal size. No focal lesion. PANCREAS: Calcifications are present in the pancreatic head. There is subtle adjacent fat stranding q uestionable for acute inflammation. ADRENALS: Bilateral adrenal lesions are unchanged. KIDNEYS AND URETERS: No hydronephrosis seen of either kidney. Posteriorly located cyst right kidney i s unchanged. URINARY BLADDER: Normal contour. GASTROINTESTINAL TRACT: No evidence of bowel obstruction, significant free fluid, free air or abscess . Sigmoid diverticulosis coli. APPENDIX: Normal appendix. LYMPH NODES: No lymphadenopathy. MUSCULOSKELETAL: Moderate lower lumbar degenerative spondylosis. ADDITIONAL FINDINGS: Aortoiliac atherosclerosis. IMPRESSION: Possible mild acute pancreatitis superimposed on chronic pancreatitis.
[2024-06-29 18:42] LABS: Absolute Basophils 0.1 K/uL (0-0.5); Absolute Eosinophils 0.1 K/uL (0-0.5); Absolute Lymphocytes (CBC) 1.4 K/uL (0.7-4.9); Absolute Monocytes 0.9 K/uL (0.1-1.3); Absolute Neutrophil 11.8 K/uL (1.8-8.0); Basophils % 0.4 % (0-1.3); Hematocrit 40.3 % (39.6-49.0); Hemoglobin 13.8 g/dL (13.6-17.9); Lymphocytes % 9.6 % (15.3-44.8); MCHC 34.2 g/dL (32.0-36.0); MCV 90.6 fL (80-100); Monocytes % 6.5 % (3.3-12.3); Neutrophils % 82.5 % (41.7-73.7); Platelets 251 thou/uL (152-406); RBC Red Blood Cell Count 4.44 M/uL (4.33-5.43); Red Cell Distribution Width 12.9 % (12.1-15.2)
[2024-06-29] MEDS ORDERED: NA CHLORIDE 0.9% 1,000 ML ONE ×2 (18:45→23:18)
[2024-06-29 19:08] LABS: Albumin 3.7 g/dL (3.4-5.0); Anion Gap 6.4 mEq/L (5.0-15.0); Bilirubin Total 0.4 mg/dL (0.2-1.0); Globulin 3.7 g/dL (2.3-3.5); Potassium 4.4 mEq/L (3.5-5.1); Protein, Total 7.4 g/dL (6.4-8.2)
[2024-06-29] MEDS ORDERED: MORPHINE 4 MG/ML SYR ONE (19:48)
[2024-06-29] MEDS ORDERED: ONDANSETRON 4 MG/2 ML VIAL ONE (19:48)
--- NOTE | 2024-06-29 20:21 | P.HP ---
Certification for Inpatient Patient admitted to: Inpatient With expected LOS: >2 Midnights Patient will require the following post-hospital care: None Practitioner: I am a practitioner with admitting privileges, knowledge of patient current condition, hospital course, and medical plan of care. Services: Services provided to patient in accordance with Admission requirements found in Title 42 Section 412.3 of the Code of Federal Regulations Patient History Date of Service: 06/29/24 Reason for admission: Abdominal pain with radiation to the back History of Present Illness: Patient is a 63-year-old gentleman who came to the hospital with abdominal discomfort. Pain was mainly in the epigastric region and no associated nausea or vomiting. Patient states the pain started from the backside yesterday. It was similar to the pain he had for his pancreatitis in April. At that time he was still drinking but since then he has stopped drinking. He was seen in the emergency room and his workup revealed elevated lipase levels. Patient does have significant vasculopathy including coronary artery disease with prior stents and patient has had carotid artery disease. On patient's CT scan there is pancreatic calcifications. There is also evidence of atherosclerotic disease of the abdominal aorta and the iliac vessels. Patient has a history of tobacco use but he states he is down to about 5 to 10 cigarettes a day. At this time, patient will be admitted to the hospital for inpatient hospitalization. Will do MRCP to further evaluate his pancreatitis. He does have some calcifications as mentioned above in this mostly indicative of chronic pancreatitis. Will also do an angiogram of his abdomen to further evaluate for mesenteric ischemia. Allergies hydrocodone [From Vicodin] Allergy (Verified 04/29/24 04:35) Unknown iodine Allergy (Verified 04/29/24 04:35) Rash propoxyphene [From Darvocet-N 100] Allergy (Verified 04/29/24 04:35) Unknown Tape Allergy (Uncoded 08/20/15 04:40) Unknown Home Medications: Amlodipine [Norvasc*] 1 tab PO DAILY 08/20/15 Fenofibrate,Micronized [Fenofibrate] 1 tab PO BEDTIME 08/20/15 Metoprolol Succinate 1 tab PO DAILY 08/20/15 Multivit-Min/FA/Lycopen/Lutein [Centrum Silver Tablet] 1 each PO DAILY 08/20/15 Clopidogrel Bisulfate [Plavix*] 75 mg PO DAILY 04/26/24 [place]-3S/Dha/Epa/Fish Oil [Fish Oil [place]-3 Softgel] 1 each PO DAILY 04/26/24 Omeprazole Magnesium 20 mg PO DAILY 04/26/24 lisinopriL [Lisinopril] 10 mg PO DAILY 04/26/24 Atorvastatin Calcium [Lipitor] 40 mg PO BEDTIME #30 tab 04/28/24 Codeine/APAP [Tylenol W/Codeine #3 tab] 1 tab PO Q8HP PRN #10 tab 05/01/24 - Past Medical/Surgical History -: HTN -: High Cholesterol -: Coronary artery disease -: Carotid artery disease -: Chronic pancreatitis -: Cardiac catheterization with coronary artery stent placement x 7 -: Titanium plate in neck vertabre - Family History Father Family History: Reviewed- Non-Contributory Mother Family History: Reviewed- Non-Contributory - Social History Smoking Status: Current some day smoker Alcohol use: No CD- Drugs: No Caffeine use: Yes Review of Systems 10-point ROS is otherwise unremarkable Physical Examination - Vital Signs Temperature: 98 F Blood Pressure: 130/80 Pulse: 80 Respirations: 18 Pulse Ox (%): 95 - Physical Exam General: Alert, In no apparent distress, Oriented x3 HEENT: Atraumatic, PERRLA, Mucous membr. moist/pink, EOMI, Sclerae nonicteric Neck: Supple, 2+ carotid pulse no bruit, No LAD, Without JVD or thyroid abnormality Respiratory: Clear to auscultation bilaterally, Normal air movement Cardiovascular: Regular rate/rhythm, Normal S1 S2 Gastrointestinal: Normal bowel sounds, Distended, Tenderness (Epigastric tenderness with no rebound or guarding) Musculoskeletal: No clubbing, No swelling, No tenderness Integumentary: No rashes Neurological: Normal gait, Normal speech, Normal strength at 5/5 x4 extr, Normal tone, Sensation intact, Cranial nerves 3-12 intact, Normal affect Lymphatics: No axilla or inguinal lymphadenopathy - Studies Laboratory Data (last 24 hrs) 06/29/24 06/29/24 18:31 18:31 WBC 14.20 H Hgb 13.8 Hct 40.3 Plt Count 251 Sodium 137 Potassium 4.4 BUN 22 H Creatinine 1.24 Glucose 113 H Total Bilirubin 0.4 AST 13 L ALT 22 Alkaline Phosphatase 70 Lipase 332 H Assessment & Plan - Problems (Diagnosis) (1) Atherosclerotic vascular disease Current Visit: Yes Status: Acute (2) Abdominal pain Current Visit: Yes Status: Acute (3) Acute on chronic pancreatitis Current Visit: Yes Status: Acute (4) Coronary artery disease Current Visit: No Status: Acute (5) Hyperlipidemia Current Visit: No Status: Acute (6) Hypertension Current Visit: No Status: Acute (7) Status post placement of stent in right coronary artery Current Visit: No Status: Acute - Plan Plan: 1. Abdominal pain; most likely related to acute on chronic pancreatitis as patient with evidence of chronic pancreatitis on imaging studies including calcifications of the pancreas. Patient's lipase is also elevated. Will continue patient with n.p.o. and IV fluids for now. Patient had a prior admission for pancreatitis. Will also be concerned about ischemic colitis or mesenteric ischemia; patient has a history of vascular disease as he is at a significant coronary artery disease with 7 stents and he has carotid artery disease. On his imaging studies he does have evidence of calcification of the abdominal aorta as well as the iliac branches. There may be some calcifications towards the celiac and superior mesenteric arteries. Will probably need further imaging to further evaluate this. No evidence of dissection noted but will further evaluate with abdominal angio. Will get an echocardiogram of the heart as well. Patient will be admitted for inpatient hospitalization 2. History of CAD; continue with antiplatelet and statin therapy and strict blood pressure control. 3. History of tobacco use; counseled regarding tobacco sensation. Patient is down to 5 to 10 cigarettes a day and is trying to cut down even more 4. History of hypertension; resume antihypertensives 5. Hyperlipidemia; resume statin therapy 6. GI DVT prophylaxis Discharge Plan: Home Plan to discharge in: Greater than 2 days - Advance Directives Does patient have a Living Will: No Does patient have a Durable POA for Healthcare: No - Code Status/Comfort Care Code Status Assessed: Yes Code Status: Full Code Critical Care: No Time Spent Managing PTS Care (In Minutes): 45
--- NOTE | 2024-06-29 20:26 | ER ---
Nurse's Notes [facility] Name: Gray Mehta Age: 63 yrs Sex: Male : 1960 Arrival Date: 06/29/2024 Time: 15:26 Bed 13 Private MD: Diagnosis: Acute pancreatitis with uninfected necrosis, unspecified Presentation: 06/29 15:41 Chief complaint: Patient states: abdominal pain that radiates to back with some nausea me1 that started last night but got worse today. Pain is managed at this time because patient took a tylenol 3 about 2 pm. Coronavirus screen: Vaccine status: Patient reports being unvaccinated. Ebola Screen: No symptoms or risks identified at this time. Initial Sepsis Screen: Does the patient meet any 2 criteria? No. Patient's initial sepsis screen is negative. Does the patient have a suspected source of infection? No. Patient's initial sepsis screen is negative. Risk Assessment: Do you want to hurt yourself or someone else? Patient reports no desire to harm self or others. Onset of symptoms was June 29, 2024 at 03:00. 15:41 Method Of Arrival: Ambulatory me1 15:41 Acuity: CAIO 3 me1 Historical: - Allergies: 15:43 Darvocet-N 100; me1 15:43 Iodine; me1 15:43 Tape; me1 15:43 Vicodin; me1 - PMHx: 15:43 High Cholesterol; Hypertension; Myocardial infarction; peptic ulcers; Pancreatitis; me1 - PSHx: 15:43 Cardiac stents x 7; me1 - Immunization history:: Adult Immunizations up to date. - Infectious Disease History:: Denies. - Social history:: Smoking status: Patient reports the use of cigarette tobacco products, smokes one-half pack cigarettes per day, Patient/guardian denies using alcohol. Screenin:00 [facility] ED Fall Risk Assessment (Adult) History of falling in the last 3 months, cm10 including since admission No falls in past 3 months (0 pts) Confusion or Disorientation No (0 pts) Intoxicated or Sedated No (0 pts) Impaired Gait No (0 pts) Mobility Assist Device Used No (0 pt) Altered Elimination No (0 pt) Score/Fall Risk Level 0 - 2 = Low Risk Oriented to surroundings, Maintained a safe environment, Hourly rounding (assess needs \T\ fall precautionary measures) done. Abuse screen: Denies threats or abuse. Denies injuries from another. Nutritional screening: No deficits noted. Tuberculosis screening: No symptoms or risk factors identified. Assessment: 19:00 General: Appears uncomfortable, Behavior is calm, cooperative. Pain: Complains of pain cm10 in abdomen. Neuro: No deficits noted. Level of Consciousness is awake, alert, obeys commands, Oriented to person, place, time, situation, Appropriate for age. Respiratory: No deficits noted. Airway is patent Respiratory effort is even, unlabored, Respiratory pattern is regular, symmetrical. GI: Abd is soft Abdomen is tender to palpation in left upper quadrant Reports upper abdominal pain, nausea. Vital Signs: 15:41 BP 107 / 65; Pulse 51; Resp 18; Temp 98.2; Pulse Ox 99% ; Weight 70.76 kg; Height 5 ft. me1 5 in. ; Pain 2/10; 19:15 BP 133 / 79; Pulse 55; Resp 15; Pulse Ox 100% on R/A; cm10 21:47 BP 120 / 73; Pulse 53; Resp 15; Pulse Ox 98% ; cm10 15:41 Body Mass Index 25.96 (70.76 kg, 165.1 cm) me1 15:41 Pain Scale: Adult me1 ED Course: 15:30 Patient arrived in ED. sj2 15:43 Triage completed. me1 15:43 Arm band placed on Patient placed in waiting room. me1 15:44 Salma Watson FNP-C is PHCP. kb 15:44 Israel Charles MD is Attending Physician. kb 16:04 Abdomen In Process Unspecified. EDMS 17:50 PHCP role handed off by Salma Watosn FNP-C dr5 17:50 Rob Rae FNP-C is PHCP. dr5 18:32 CBC with Diff Sent. cc6 18:32 CMP Sent. cc6 18:32 Lipase Sent. cc6 18:40 Kaia Johnston, KADI is Primary Nurse. cm10 19:00 Patient has correct armband on for positive identification. Bed in low position. Call cm10 light in reach. Pulse ox on. NIBP on. 20:24 Everett Oakes MD is Hospitalizing Provider. dr5 23:10 No provider procedures requiring assistance completed. al5 23:30 Provided Education on: need for admission. al5 23:30 Inserted saline lock: 20 gauge in right antecubital area, using aseptic technique. al5 ,using aseptic technique. done by KADI fernández before this nurse assumed care Flushed with 10 mL NS Patient admitted, IV remains in place. Administered Medications: 18:56 Drug: NS 0.9% IV 1000 ml IV at 1 bolus Per protocol; to be given as a bolus over 60 cm10 minutes Route: IV; Rate: 1 bolus; Site: right antecubital; 21:47 Follow up: Response: No adverse reaction; IV Status: Completed infusion; IV Intake: cm10 1000ml 20:05 Drug: morphine IVP or IV 4 mg IVP once over 4 mins Route: IVP; Infused Over: 4 mins; cm10 Site: right antecubital; 21:48 Follow up: Response: No adverse reaction cm10 20:05 Drug: Ondansetron IVP 4 mg IVP once; over 2 minutes Route: IVP; Site: right antecubital;cm10 21:48 Follow up: Response: No adverse reaction cm10 23:28 Drug: HYDROmorphone IVP 0.5 mg IVP once Route: IVP; Site: right antecubital; al5 23:29 Follow up: Response: No adverse reaction; No adverse reaction; medication given upon al5 admission Medication: 23:30 VIS not applicable for this client. al5 Intake: 21:47 IV: 1000ml; Total: 1000ml. cm10 Outcome: 20:25 Decision to Hospitalize by Provider. dr5 23:30 Admitted to ER Hold. Please see [facility] for further documentation. al5 23:30 Condition: stable 23:30 Instructed on the need for admit, 06/30 03:47 Admitted to Med/surg accompanied by tech, via wheelchair, room 413, al5 Condition: stable Instructed on the need for admit, 03:47 Patient left the ED. al5 Signatures: Dispatcher [employer] EDSalma Wright, VITICULTURIST-C VITICULTURIST-CkKaia Bryant, KADI RN cm10 Indira Masterson RN RN me1 Shira Cano RN RN al5 Marsha Smallwood cc6 Lacie Garcia 2 Rob Rae, VITICULTURIST-C VITICULTURIST-Cdr5
--- NOTE | 2024-06-29 20:26 | EDPHYS ---
Physician Documentation [facility] Name: Gray Mehta Age: 63 yrs Sex: Male : 1960 Arrival Date: 06/29/2024 Time: 15:26 Bed 13 Private MD: ED Physician Israel Charles HPI: 06/29 15:56 This 63 yrs old Male presents to ER via Ambulatory with complaints of Abdominal Pain, kb Nausea. 15:56 Patient is a 63-year-old male who presents for upper abdominal pain and back pain that kb started yesterday. States pain got worse today. Reports nausea. Denies any diarrhea or vomiting and fever. States it feels similar to previous episodes of pancreatitis but this time it started in the back and radiated around to the abdomen which was different for him. Pt states he took a tylenol #3 prior to arrival so he has no pain at this time, but is concerned about pain returning . Historical: - Allergies: 15:43 Darvocet-N 100; me1 15:43 Iodine; me1 15:43 Tape; me1 15:43 Vicodin; me1 - PMHx: 15:43 High Cholesterol; Hypertension; Myocardial infarction; peptic ulcers; Pancreatitis; me1 - PSHx: 15:43 Cardiac stents x 7; me1 - Immunization history:: Adult Immunizations up to date. - Infectious Disease History:: Denies. - Social history:: Smoking status: Patient reports the use of cigarette tobacco products, smokes one-half pack cigarettes per day, Patient/guardian denies using alcohol. ROS: 15:56 Constitutional: As per HPI kb Exam: 15:56 Constitutional: This is a well developed, well nourished patient who is awake, alert, kb and in no acute distress. Head/Face: Normocephalic, atraumatic. ENT: Moist Mucous membranes Cardiovascular: Regular rate Respiratory: Respirations even and unlabored. No increased work of breathing. Talking in full sentences Abdomen/GI: Soft, non-tender. No distention Back: No spinal tenderness. No costovertebral tenderness. Full range of motion. Skin: Warm, dry with normal turgor. Normal color. MS/ Extremity: Pulses equal, no cyanosis. Neurovascular intact. Full, normal range of motion. Neuro: Awake and alert, GCS 15, oriented to person, place, time, and situation. Vital Signs: 15:41 BP 107 / 65; Pulse 51; Resp 18; Temp 98.2; Pulse Ox 99% ; Weight 70.76 kg; Height 5 ft. me1 5 in. ; Pain 2/10; 19:15 BP 133 / 79; Pulse 55; Resp 15; Pulse Ox 100% on R/A; cm10 21:47 BP 120 / 73; Pulse 53; Resp 15; Pulse Ox 98% ; cm10 15:41 Body Mass Index 25.96 (70.76 kg, 165.1 cm) me1 15:41 Pain Scale: Adult me1 MDM: 15:44 Medical Screening Exam initiated kb 17:49 Transition of care: After a detail discussion of the patient's case, care is kb transferred to Rob Rae [facility]. 06/30 00:32 Differential diagnosis: pancreatitis, Peptic Ulcer Disease, urinary tract infection. dr5 Data reviewed: vital signs, nurses notes, lab test result(s). I considered the following discharge prescriptions or medication management in the emergency department Medications were administered in the Emergency Department. See MAR. Historians other than the Patient: Spouse/Significant Other: . Care significantly affected by the following chronic conditions: Hyperlipidemia, OR, Pancreatitis. Care significantly affected by the following Social Determinants of Health: Poor access to healthcare and/or lack of insurance, Poor access to transportation, Problems related to employment. Counseling: I had a detailed discussion with the patient and/or guardian regarding the historical points, exam findings, and any diagnostic results supporting the discharge/admit diagnosis, the presence of at least one elevated blood pressure reading (>120/80) during this emergency department visit, lab results, radiology results, the need for further work-up and treatment in the hospital. ED course: Admitted patient to Dr. Oakes for acute pancreatitis. I discussed plan of care with patient as well as and they are agreeable to plan. All questions answered.. 06/29 15:47 Order name: CBC with Diff; Complete Time: 19:00 kb 06/29 15:47 Order name: CMP; Complete Time: 19:09 kb 06/29 15:47 Order name: Lipase; Complete Time: 19:09 kb 06/29 20:16 Order name: CBC with Automated Diff EDMS 06/29 20:16 Order name: Comprehensive Metabolic Panel EDMS 06/29 20:16 Order name: Lactate w/ 2H reflex if indic. EDOR 06/29 20:16 Order name: Magnesium EDOR 06/29 20:16 Order name: NT PRO-BNP EDOR 06/29 20:16 Order name: Protime (+INR) EDOR 06/29 20:16 Order name: PTT, Activated Partial Thromb EDOR 06/29 20:16 Order name: Troponin High Sensitivity EDOR 06/29 21:00 Order name: Lipase EDOR 06/29 21:00 Order name: Lipase EDOR 06/29 21:00 Order name: Lipid Profile EDOR 06/29 15:55 Order name: Abdomen ; Complete Time: 16:13 EDOR 06/29 21:00 Order name: Echo with Doppler EDOR 06/29 15:47 Order name: IV Saline Lock; Complete Time: 18:32 kb 06/29 15:47 Order name: Labs collected and sent; Complete Time: 18:32 kb Administered Medications: 06/29 18:56 Drug: NS 0.9% IV 1000 ml IV at 1 bolus Per protocol; to be given as a bolus over 60 cm10 minutes Route: IV; Rate: 1 bolus; Site: right antecubital; 21:47 Follow up: Response: No adverse reaction; IV Status: Completed infusion; IV Intake: cm10 1000ml 20:05 Drug: morphine IVP or IV 4 mg IVP once over 4 mins Route: IVP; Infused Over: 4 mins; cm10 Site: right antecubital; 21:48 Follow up: Response: No adverse reaction cm10 20:05 Drug: Ondansetron IVP 4 mg IVP once; over 2 minutes Route: IVP; Site: right antecubital;cm10 21:48 Follow up: Response: No adverse reaction cm10 23:28 Drug: HYDROmorphone IVP 0.5 mg IVP once Route: IVP; Site: right antecubital; al5 23:29 Follow up: Response: No adverse reaction; No adverse reaction; medication given upon al5 admission Disposition Summary: 06/29/24 20:25 Hospitalization Ordered Notes: Hospitalization Status: Inpatient Admission dr5 Provider: Everett Oakes Condition: Stable dr5 Problem: an acute exacerbation dr5 Symptoms: are unchanged dr5 Bed/Room Type: Standard dr5 Location: Telemetry/MedSurg (Inpatient)(06/30/24 01:04) cg Room Assignment: 413(06/30/24 01:04) cg Diagnosis - Acute pancreatitis with uninfected necrosis, unspecified dr5 Forms: - Medication Reconciliation Form dr5 - SBAR form dr5 - Leadership Thank You Letter dr5 Addendum: 07/06/2024 21:42 Co-signature as Attending Physician, Israel Charles MD I agree with the assessment and c leggett plan of care. Signatures: Dispatcher [employer] EDOR Salma Watson, PATRIZIA INFORMATION COORDINATOR-Ckb Israel Charles MD MD cha Garcia, Cindy, RN RN cg Dona Smith rv1 Kaia Johnston RN RN cm10 Indira Masterson RN RN me1 Shira Cano RN RN al5 Rob Rae FNP-C INFORMATION COORDINATOR-Cdr5 Corrections: (The following items were deleted from the chart) 06/29 15:55 15:47 Abdomen Pelvis W Con+CT.RAD.BRZ ordered. [facility] 17:33 15:56 Patient is a 63-year-old male who presents for upper abdominal pain and back pain kb that started yesterday. States pain got worse today. Reports nausea. Denies any diarrhea or vomiting and fever. States it feels similar to previous episodes of pancreatitis but this time it started in the back and radiated around to the abdomen which was different for him.. kb 23:58 20:25 Telemetry/MedSurg (Inpatient) dr5 rv1 23:58 20:25 dr5 rv1 06/30 01:04 06/29 23:58 [facility] ER HOLD rv cg 06/30 01:04 06/29 23:58 ERHOLD- rv1 cg
[2024-06-29] MEDS ORDERED: ACETAMINOPHEN 500 MG TAB PO PRN (20:52)
[2024-06-29] MEDS ORDERED: ONDANSETRON 4 MG/2 ML VIAL IV PRN (20:52)
[2024-06-29] MEDS ORDERED: HYDROMORPHONE HCL 0.5 MG/0.5 ML INJ ONE (23:18)
[2024-06-29] MEDS: NA CHLORIDE 0.9% 1,000 ML IV SCH (23:28)
[2024-06-30 00:50] VITALS: BMI 25.7
[2024-06-30] MEDS ORDERED: MORPHINE 2 MG/ML SYR ONE (01:37)
[2024-06-30] MEDS: MORPHINE 2 MG/ML SYR IV PRN (01:40)
[2024-06-30] MEDS ORDERED: HYDROMORPHONE HCL 0.5 MG/0.5 ML INJ ONE (03:32)
[2024-06-30] MEDS: HYDROMORPHONE HCL 0.5 MG/0.5 ML INJ IV PRN (03:33)
[2024-06-30 07:05] LABS: PTT, Activated Partial Thromb 30.9 SECONDS (27.2-37.4); Protime INR 1.06
[2024-06-30 07:07] LABS: Absolute Eosinophils 0.1 K/uL (0-0.5); Absolute Monocytes 1.1 K/uL (0.1-1.3); Absolute Neutrophil 11.6 K/uL (1.8-8.0); Basophils % 0.2 % (0-1.3); Hematocrit 41.3 % (39.6-49.0); Hemoglobin 13.9 g/dL (13.6-17.9); Lymphocytes % 7.4 % (15.3-44.8); MCH 31.3 pg (27.0-35.0); MCHC 33.8 g/dL (32.0-36.0); MCV 92.6 fL (80-100); MPV 9.1 fL (7.6-11.3); Monocytes % 8.1 % (3.3-12.3); Neutrophils % 83.3 % (41.7-73.7); Platelets 212 thou/uL (152-406); RBC Red Blood Cell Count 4.46 M/uL (4.33-5.43); Red Cell Distribution Width 12.9 % (12.1-15.2)
[2024-06-30 07:27] LABS: Albumin 3.4 g/dL (3.4-5.0); Albumin/Globulin Ratio 0.9 (1.1-1.8); Anion Gap 6.5 mEq/L (5.0-15.0); Bilirubin Total 0.4 mg/dL (0.2-1.0); Globulin 3.6 g/dL (2.3-3.5); Magnesium 1.8 mg/dL (1.6-2.4); Potassium 4.5 mEq/L (3.5-5.1); Troponin High Sensitivity 11.8 pg/mL (<58.9)
[2024-06-30] MEDS: METOPROLOL XL 50 MG TAB PO SCH (09:01)
[2024-06-30] MEDS: CLOPIDOGREL 75 MG TABLET PO SCH (09:01)
[2024-06-30] MEDS: AMLODIPINE 5 MG TAB PO SCH (09:01)
[2024-06-30] MEDS: PANTOPRAZOLE 40MG TABLET PO SCH (09:02)
--- NOTE | 2024-06-30 10:38 | RAD REPORT ---
EXAMINATION: MR CHOLANGIOGRAM CLINICAL INDICATION: Male, 63 years old. pancreatitis TECHNIQUE: Multiplanar, multisequence MR imaging of the abdomen without intravenous contrast, and wit h specific attention to the biliary system. Unless otherwise specified, incidental findings do not require dedicated imaging follow-up. 3D MIP reconstruction performed. COMPARISON: 06/29/2024 CT study FINDINGS: GALLBLADDER: No stones, wall thickening, or pericholecystic fluid. BILE DUCTS: No biliary ductal dilatation. LIVER: Normal in size, contour, and signal without evidence of fatty infiltration or iron deposition. No focal lesion. PANCREAS: There is mild to moderate fluid surrounding the pancreatic head and duodenal C-loop. LYMPH NODES: No lymphadenopathy. ADDITIONAL FINDINGS: Prominent cyst posterior cortex right kidney measuring 3.2 cm. Anteriorly rotate d right kidney. Bilateral adrenal masses again noted. IMPRESSION: No significant biliary dilatation is seen. Mild fluid surrounds the pancreatic head and duodenal C-loop likely pancreatitis. There is no focal f luid collection.
[2024-06-30] MEDS: MAGNESIUM SULFATE 1 gm IVPB 1 GM/100 ML BAG IV ONE (12:12)
--- NOTE | 2024-06-30 13:08 | P.PN ---
Subjective Date of Service: 06/30/24 Chief Complaint: Abdominal pain with radiation to the back Subjective: No chest pain or shortness of breath. No nausea or vomiting. c/o abdominal pain. No obvious bleeding. Looks comfortable in the bed. Objective: General appearance: Alert and comfortable CVS: Normal S1 and S2 Lungs: Clear to auscultation bilaterally Abdomen: Soft, bowel sounds present, mild tenderness in periumbilical and epigastric area Extremities: No lower extremity edema Physical Examination - Vital Signs Temperature: 97.8 F Blood Pressure: 131/66 Pulse: 59 Respirations: 16 Pulse Ox (%): 98 - Studies Laboratory Data (last 24 hrs) 06/29/24 06/29/24 18:31 18:31 WBC 14.20 H Hgb 13.8 Hct 40.3 Plt Count 251 Sodium 137 Potassium 4.4 BUN 22 H Creatinine 1.24 Glucose 113 H Total Bilirubin 0.4 AST 13 L ALT 22 Alkaline Phosphatase 70 Lipase 332 H Assessment And Plan - Plan 1. Acute on chronic pancreatitis as patient with evidence of chronic pancreatitis on imaging studies including calcifications of the pancreas. - Continue IV fluids, start clear liquids and monitor. -CT abdomen showed acute on chronic pancreatitis, MRCP showed pancreatitis as well. - Monitor white count. 2. History of CAD; continue with antiplatelet and statin therapy and strict blood pressure control. 3. History of tobacco use; counseled regarding tobacco sensation. 4. History of hypertension; resume antihypertensives 5. Hyperlipidemia; resume statin therapy 6. Adrenal masses on CT and MRI: Probable adenoma, need to follow-up with PCP with repeat imaging for monitoring. Plan discussed with patient and nursing staff, discharge plan depending on clinical progress.
[2024-06-30] MEDS: HOME MED 1 EA UNK (Fenofibrate,Micronized [Fenofibrate] 134 MG Capsule) PO SCH (21:00)
[2024-06-30] MEDS: ATORVASTATIN 40 MG TAB PO SCH (21:00)
[2024-07-01 10:07] LABS: Absolute Eosinophils 0.1 K/uL (0-0.5); Absolute Lymphocytes (CBC) 0.9 K/uL (0.7-4.9); Absolute Monocytes 0.6 K/uL (0.1-1.3); Absolute Neutrophil 6.3 K/uL (1.8-8.0); Basophils % 0.3 % (0-1.3); Eosinophils % 1.7 % (0-4.4); Hematocrit 40.7 % (39.6-49.0); Hemoglobin 13.7 g/dL (13.6-17.9); Lymphocytes % 11.7 % (15.3-44.8); MCH 31.2 pg (27.0-35.0); MCHC 33.8 g/dL (32.0-36.0); MCV 92.3 fL (80-100); MPV 9.1 fL (7.6-11.3); Neutrophils % 79.3 % (41.7-73.7); Platelets 224 thou/uL (152-406); RBC Red Blood Cell Count 4.41 M/uL (4.33-5.43); Red Cell Distribution Width 12.9 % (12.1-15.2)
[2024-07-01 10:20] LABS: Anion Gap 8.3 mEq/L (5.0-15.0); Potassium 4.3 mEq/L (3.5-5.1)
--- NOTE | 2024-07-01 10:33 | P.DS ---
Admission Date: 06/29/24 Discharge Date: 07/01/24 Disposition: DC HOME/HOME HEALTH CARE Discharge Condition: GOOD Reason for Admission: Abdominal pain with radiation to the back Hospital Course: Discharge diagnosis: 1. Acute on chronic pancreatitis as patient with evidence of chronic pancreatitis on imaging studies including calcifications of the pancreas. - Tolerating diet -CT abdomen showed acute on chronic pancreatitis, MRCP showed pancreatitis as well. - white count better. - DC home today. 2. History of CAD 3. History of tobacco use; counseled regarding tobacco sensation. 4. History of hypertension 5. Hyperlipidemia 6. Adrenal masses on CT and MRI: Probable adenoma, need to follow-up with PCP with repeat imaging for monitoring. Plan discussed with patient and nursing staff. Hospital course: 63-year-old patient admitted with acute on chronic pancreatitis, he was kept n.p.o., started on IV fluids and pain medications, once the pain was better, started on liquid diet and diet was advanced, when I see the patient today he is tolerating diet well, he feels ready to go home, otherwise no other acute issues going on so I am planning to discharge him to go home, I strongly advised him to follow with PCP and gastroenterology due to recurrent pancreatitis, admitting team ordered echo for him, which he was not interested, he would like to follow-up with cardiology as an outpatient and get the echo, he already has an appointment with [facility] and 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 Subjective: No chest pain or shortness of breath. No nausea or vomiting. abdominal pain better. No obvious bleeding. Looks comfortable in the bed. Objective: General appearance: Alert and comfortable CVS: Normal S1 and S2 Lungs: Clear to auscultation bilaterally Abdomen: Soft, bowel sounds present, no tenderness Extremities: No lower extremity edema Vital Signs/Physical Exam: Temp Pulse Resp BP Pulse Ox 97.8 F 61 16 134/65 98 07/01/24 08:00 07/01/24 08:00 07/01/24 08:00 07/01/24 08:00 07/01/24 08:00 Laboratory Data at Discharge: WBC 7.90 thou/uL (4.3-10.9) 07/01/24 09:40 Hgb 13.7 g/dL (13.6-17.9) 07/01/24 09:40 Hct 40.7 % (39.6-49.0) 07/01/24 09:40 Plt Count 224 thou/uL (152-406) 07/01/24 09:40 PT 12.0 SECONDS (10-13.0) 06/30/24 06:50 INR 1.06 06/30/24 06:50 APTT 30.9 SECONDS (27.2-37.4) 06/30/24 06:50 Sodium 139 mEq/L (136-145) 07/01/24 09:40 Potassium 4.3 mEq/L (3.5-5.1) 07/01/24 09:40 BUN 10 mg/dL (7-18) 07/01/24 09:40 Creatinine 1.10 mg/dL (0.70-1.30) 07/01/24 09:40 Glucose 203 mg/dL (74-106) H 07/01/24 09:40 Magnesium 1.8 mg/dL (1.6-2.4) 06/30/24 06:50 Total Bilirubin 0.4 mg/dL (0.2-1.0) 06/30/24 06:50 AST 13 U/L (15-37) L 06/30/24 06:50 ALT 20 U/L (16-61) 06/30/24 06:50 Alkaline Phosphatase 67 U/L (45-117) 06/30/24 06:50 Triglycerides 134 mg/dL (<150) 06/30/24 06:50 Cholesterol 116 mg/dL (<200) 06/30/24 06:50 HDL Cholesterol 36 mg/dL (40-60) L 06/30/24 06:50 Cholesterol/HDL Ratio 3.22 06/30/24 06:50 Lipase 360 U/L (13-75) H 06/30/24 06:50 Home Medications: Amlodipine [Norvasc*] 1 tab PO DAILY 08/20/15 Fenofibrate,Micronized [Fenofibrate] 1 tab PO BEDTIME 08/20/15 Metoprolol Succinate 1 tab PO BID 08/20/15 Multivit-Min/FA/Lycopen/Lutein [Centrum Silver Tablet] 1 each PO DAILY 08/20/15 Clopidogrel Bisulfate [Plavix*] 75 mg PO DAILY 04/26/24 [place]-3S/Dha/Epa/Fish Oil [Fish Oil [place]-3 Softgel] 1 each PO DAILY 04/26/24 Omeprazole Magnesium 20 mg PO DAILY 04/26/24 lisinopriL [Lisinopril] 10 mg PO DAILY 04/26/24 Atorvastatin Calcium [Lipitor] 40 mg PO BEDTIME #30 tab 04/28/24 Codeine/APAP [Tylenol #3*] 1 tab PO Q8HP PRN #10 tab 05/01/24 Simvastatin 80 mg PO BEDTIME 06/30/24 Diet: low fat Activity: Ad belen Followup: Anthony Lechuga MD [ACTIVE - CAN ADMIT] - 1-2 Weeks (follow up with dr. lechuga) Justo Cortes MD [ACTIVE - CAN ADMIT] - 1 Week (f/u with GI clinic in 1-2 weeks) Mynor Rivera MD [Primary Care Provider] - 1 Week (f/u with PCP in 5-7 days with CBC and CMP. Adnrenal masses on CT will need f/u with PCP) Time spent managing pt's care (in minutes): 34
[2024-07-01 11:33] VITALS: TEMP 98.2
[2024-07-01 11:36] VITALS: BP 120/73; O2SAT 98
== END 2024-07-01 11:15 | disposition home health service (06) | DRG 440 ==
LOC: ER 15:26 → ERHOLD 20:52 → 4TH 06-30 02:24
PROVIDERS: ADMIT Hospitalist; ATTEND Hospitalist
DX: K85.90 Acute pancreatitis without necrosis or infection, unspecified (principal); K86.1 Other chronic pancreatitis; E78.00 Pure hypercholesterolemia, unspecified; E27.9 Disorder of adrenal gland, unspecified; I10 Essential (primary) hypertension; I25.2 Old myocardial infarction; I25.10 Atherosclerotic heart disease of native coronary artery without angina pectoris; F17.210 Nicotine dependence, cigarettes, uncomplicated; Z71.6 Tobacco abuse counseling; Z88.5 Allergy status to narcotic agent; Z95.5 Presence of coronary angioplasty implant and graft; Z59.71 Insufficient health insurance coverage; Z79.02 Long term (current) use of antithrombotics/antiplatelets; Z79.899 Other long term (current) drug therapy
CPT/HCPCS: 36415; 74176; 74181; 80048; 80053; 80061; 83605; 83690; 83735; 83880; 84484; 85025; 85610; 85730; 96361; 96374; 96375; 99285; J1171; J2270; J2405; J3475; J7030